=== PATIENT | male | born 1955 | race Caucasian/White ===

== ENCOUNTER 2017-11-28 03:43 | Emergency (ER) | payer MEDICARE, SELFPAY ==
[2017-11-28 03:45] VITALS: BP 165/105; PULSE 95; RESP 94; TEMP 36.4; O2SAT 20; BMI 32.1
--- NOTE | 2017-11-28 04:00 | EKG12_ITS ---
Test Reason : Blood Pressure : / mmHG Vent. Rate : 098 BPM Atrial Rate : 098 BPM P-R Int : 144 ms QRS Dur : 090 ms QT Int : 356 ms P-R-T Axes : 060 -08 048 degrees QTc Int : 454 ms Normal sinus rhythm Low voltage QRS (limb leads) Confirmed by JAH ORTIZ, GIAN ([id number]), editor in chief newspaper HANNAH LEBLANC ([id number]) on 11/30/2017 10:36:15 AM Referred By: DR TRAVIS Confirmed By:GIAN TYSON MD
[2017-11-28 04:18] LABS: Vista UDS pH Range 6
[2017-11-28 04:18] LABS: Absolute Lymphocyte Count 1.64 X10^3/ul (0.83-4.51); Basophil# 0.02 X10^3/uL; Basophil% 0.4 % (0-1); Eosinophil# 0.12 X10^3/uL; Eosinophils% 2.3 % (0-5); Hematocrit 43.3 % (40-54); Hemoglobin 15.4 g/dl (13.0-16.5); Lymphocyte # 1.64 X10^3/ul (4.0); Lymphocyte % 31.8 % (19-41); Mean Corp Hgb Conc 35.6 g/gl (32-36); Mean Corpuscular Hgb 30.6 pg (27.0-32.0); Mean Corpuscular Volume 85.9 fL (80-94); Monocyte# 0.36 X10^3/uL; Neutrophil % 58.3 % (47-70); Platelet Count 225 K/mm3 (150-450); RBC Distribution Width CV 13.4 % (11.6-14.6); RBC Distribution Width SD 41.1 fl (35.1-43.9); Red Blood Count 5.04 M/mm3 (4.6-6.2); White Blood Count 5.2 K/mm3 (4.4-11.0)
[2017-11-28 04:20] LABS: POSITIVE COUNT NO; POSITIVE DIFFERENTIAL NO; POSITIVE MORPHOLOGY NO
[2017-11-28 04:42] LABS: AST(SGOT) 36 U/L (15-37); Alanine Aminotransfer ALT/SGPT 25 U/L (16-61); Albumin, Serum 3.9 g/dL (3.2-5.0); Alkaline Phosphatase 92 U/L (45-117); Anion Gap 10 (5-15); BUN 16 mg/dL (7-18); BUN/Creat Ratio 19.2 RATIO (10-20); Bilirubin, Direct 0.11 mg/dL (0.00-0.30); Calcium,Total 8.6 mg/dL (8.5-10.1); Chloride 104 mmol/L (98-107); Creatinine, Serum 0.83 mg/dL (0.70-1.30); EST Glomerular Filtration Rate 99 mL/min (>60); Est Glom Filt Rate - Afr Amer 120 mL/min (>60); Globulin 3.3 g/dL (2.2-4.2); Glucose 122 mg/dL (74-106); Potassium 4.1 mmol/L (3.5-5.1); Protein, Total 7.2 g/dL (6.4-8.2); Sodium Level 139 mmol/L (136-145)
[2017-11-28 05:03] VITALS: RESP 18
[2017-11-28 05:03] LABS: Amphetamine Urine VISTA NEGATIVE (<1000 ng/mL); Barbiturate Urine VISTA NEGATIVE (< 200 ng/mL); Benzodiazepine Urine VISTA NEGATIVE (< 200 ng/mL); Cocaine Urine VISTA NEGATIVE (< 300 ng/mL); Ecstacy Urine VISTA NEGATIVE (< 500 ng/mL); Methadone Urine VISTA NEGATIVE (< 300 ng/mL); PCP Urine VISTA NEGATIVE (< 25 ng/mL); THC Urine VISTA NEGATIVE (< 50 ng/mL)
--- NOTE | 2017-11-28 05:11 | ED.RN ---
TRIAGE, HEALTH HISTORY, MEDLIST, ASSESSMENT, DONE BY THIS NURSE BUT ACCIDENTLY CHARTED UNDER GUILLE MURDOCK RN.
[2017-11-28] MEDS: oxyCODONE 5 MG Tablet PO ×2 (05:20→08:48)
[2017-11-28 05:23] VITALS: BP 107/61; PULSE 100; RESP 18; O2SAT 93
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
[2017-11-28 06:02] VITALS: RESP 18
[2017-11-28] MEDS: LORazepam 1 MG Tablet 2 MG PO (08:48)
--- NOTE | 2017-11-28 08:51 | ED.RN ---
BREAKFAST TRAY DELIVERED TO BEDSIDE. PT DENIES FURTHER NEEDS AT THIS TIME. CALL LIGHT IN REACH.
[2017-11-28 09:26] VITALS: BP 124/78; PULSE 92; RESP 14; O2SAT 95
== END 2017-11-28 09:39 ==
PROVIDERS: Emergency Provider Emergency Medicine; Family Provider Family Medicine; PCP Family Medicine
DX: R45.851 Suicidal ideations (principal); R45.850 Homicidal ideations; F29 Unspecified psychosis not due to a substance or known physiological condition; F43.10 Post-traumatic stress disorder, unspecified; F20.9 Schizophrenia, unspecified; Z72.0 Tobacco use
CPT/HCPCS: 80048; 80076; 80307; 80320; 85025; 93005; 99282; G0480

== ENCOUNTER 2018-01-25 10:34 | Emergency (ER) | payer MEDICARE, SELFPAY ==
[2018-01-25] VITALS (7 sets, daily range): BP systolic 116–159; BP diastolic 85–114; PULSE 75–108; RESP 16–22; TEMP 36.4; O2SAT 93–98; BMI 32.3
--- NOTE | 2018-01-25 10:55 | EKG12_ITS ---
Test Reason : SUICIDAL Blood Pressure : / mmHG Vent. Rate : 086 BPM Atrial Rate : 086 BPM P-R Int : 146 ms QRS Dur : 086 ms QT Int : 370 ms P-R-T Axes : 053 -13 047 degrees QTc Int : 442 ms Normal sinus rhythm Normal ECG Confirmed by JAH ORTIZ, GIAN ([id number]), editor newspaper HANNAH LEBLANC ([id number]) on 02/05/2018 3:49:03 PM Referred By: LIZA Confirmed By:GIAN TYSON MD
--- NOTE | 2018-01-25 10:57 | ED.VISSUMM ---
- ER Visit Summary Date of Service: 01/25/18 Chief Complaint: Suicidal ideation History of Present Illness: The patient is a 62 M with a history of depression who presents with suicidal ideation. Plan to shoot himself. No guns in the home. His brother took them. No attempt. Patient also reports trouble urinating. He reports frequency, weak stream, and trouble starting. Trouble emptying. No history of prostate issues. No pain in his rectum her backside. No blood. No fevers. No discharge. Physical Examination: Tachycardic at 108. Hypertensive 152/114. Otherwise afebrile vital signs unremarkable. Flat affect and depressed mood. Alert and oriented. Heart regular. Lungs clear. Abdomen soft. Back shows mild CVA tenderness bilaterally. Skin appears normal. Test Results: EKG, labs, urinalysis, tox screen, and alcohol pending. Post void residual pending. Emergency Department Course and Treatment: Patient had suicide precautions. He received 0.5 mg of Ativan by mouth. Will clear him for psychiatric care. Will also evaluate for his urinary complaints. Workup is largely unremarkable. CBC normal. Potassium 3.4. Glucose 112 and BUN 23. Liver panel normal. Urinalysis unremarkable. 0-5 white cells and 0-5 epi cells. No bacteria. Nitrites negative. Tox screen positive for opiates. Alcohol pending. Patient's postvoid residual was 11 cc. He is not retaining urine. Patient is tentatively accepted at [place] for geropsych. Requested a head CT and chest x-ray. Chest x-ray unremarkable. Head CT pending. Patient is stable. We are waiting twice by the crisis counselor. He is clear for for transfer for psychiatric care from a medical standpoint. Treatment Plan: Above Disposition: Transfer pending further evaluation by crisis counselor. Impression: 1. Suicidal ideation 2. Urinary frequency This note was generated with [employer] dictation software. It may contain incorrect words, spelling, and punctuation that were not noted in review of the chart prior to signing ED Disposition - Plan for ED Patient: Chief Complaint: Suicidal Referrals: Josue St MD [Primary Care Provider] -
[2018-01-25] MEDS: LORazepam 0.5 MG Tablet PO ×2 (11:07→17:32)
[2018-01-25 11:13] LABS: Bacteria 0 SEEN /hpf (None Seen); Red Blood Cells-Urine 0 SEEN /hpf (0-5)
[2018-01-25 11:17] LABS: Absolute Lymphocyte Count 2.52 X10^3/ul (0.83-4.51); Absolute Neutrophil Count 4.6 X10^3/uL (2.0-7.7); Basophil# 0.03 X10^3/uL; Basophil% 0.4 % (0-1); Eosinophil# 0.15 X10^3/uL; Eosinophils% 1.8 % (0-5); Hematocrit 45.5 % (40-54); Hemoglobin 16.2 g/dl (13.0-16.5); Lymphocyte # 2.52 X10^3/ul (4.0); Mean Corp Hgb Conc 35.6 g/gl (32-36); Mean Corpuscular Hgb 31.1 pg (27.0-32.0); Mean Corpuscular Volume 87.3 fL (80-94); Mean Platelet Vol. 9.8 fl (6.2-12.0); Monocyte# 0.81 X10^3/uL; Neutrophil # 4.59 X10^3/uL (2.7-7.7); Neutrophil % 56.6 % (47-70); POSITIVE COUNT NO; POSITIVE DIFFERENTIAL NO; POSITIVE MORPHOLOGY NO; Platelet Count 258 K/mm3 (150-450); RBC Distribution Width CV 13.1 % (11.6-14.6); RBC Distribution Width SD 41.9 fl (35.1-43.9); Red Blood Count 5.21 M/mm3 (4.6-6.2); White Blood Count 8.1 K/mm3 (4.4-11.0)
[2018-01-25 11:26] LABS: Color, Urine Yellow (Yellow); Glucose, Dipstick Normal (Normal); Ketone-Dipstick Negative (Negative); Leukocyte Esterase-Dipstick 25 /ul (Negative); Nitrite-Dipstick Negative (Negative); Occult Blood-Urine Negative /ul (Negative); Protein-Dipstick 15 mg/dl (Negative); Specific Gravity, Urine 1.015 (1.002-1.030); Urine Bilirubin Dipstick Negative (Negative); Urine Clarity Clear (Clear); Urine Urobilinogen Normal (Normal)
[2018-01-25 11:30] LABS: Mucous, Urine 1+ /hpf (<or=2+); Squamous Epithelial Cells - UA 0-5 SEEN /hpf (0-5); White Blood Cells 0-5 SEEN /hpf (0-5)
[2018-01-25 11:41] LABS: ALB/GLOB Ratio 1.1 RATIO (0.9-2.4); AST(SGOT) 37 U/L (15-37); Alanine Aminotransfer ALT/SGPT 22 U/L (16-61); Albumin, Serum 3.9 g/dL (3.2-5.0); Alkaline Phosphatase 92 U/L (45-117); Anion Gap 8 (5-15); BUN 23 mg/dL (7-18); BUN/Creat Ratio 21.3 RATIO (10-20); Calcium,Total 8.9 mg/dL (8.5-10.1); Chloride 107 mmol/L (98-107); Creatinine, Serum 1.08 mg/dL (0.70-1.30); EST Glomerular Filtration Rate 73 mL/min (>60); Est Glom Filt Rate - Afr Amer 89 mL/min (>60); Estimated Creatinine Clearance 70.01 ml/min; Globulin 3.4 g/dL (2.2-4.2); Glucose 112 mg/dL (74-106); Potassium 3.4 mmol/L (3.5-5.1); Protein, Total 7.3 g/dL (6.4-8.2); Sodium Level 143 mmol/L (136-145)
[2018-01-25 11:48] LABS: Amphetamine Urine VISTA NEGATIVE (<1000 ng/mL); Barbiturate Urine VISTA NEGATIVE (< 200 ng/mL); Benzodiazepine Urine VISTA NEGATIVE (< 200 ng/mL); Cocaine Urine VISTA NEGATIVE (< 300 ng/mL); Ecstacy Urine VISTA NEGATIVE (< 500 ng/mL); Methadone Urine VISTA NEGATIVE (< 300 ng/mL); PCP Urine VISTA NEGATIVE (< 25 ng/mL); THC Urine VISTA NEGATIVE (< 50 ng/mL); Vista UDS pH Range 6
[2018-01-25] MEDS: Acetaminophen 500 MG Tablet 1000 MG PO (15:40)
--- NOTE | 2018-01-25 15:56 | RAD_ITS ---
STUDY: X-RAY CHEST REASON FOR EXAM: Male, 62 years old. having thoughts of committing suicide for 3 days TECHNIQUE: Single AP portable view of the chest. COMPARISON: August 23, 2015 FINDINGS: The lungs are clear and expanded. There is no demonstrated pleural abnormality. Normal size heart. Normal mediastinum and erendira. Normal visualized pulmonary arteries. Normal visualized aortic arch and descending thoracic aorta. Normal visualized thoracic spine. Normal visualized ribs, clavicles, and shoulders. There is no demonstrated abnormality of the visualized soft tissue structures of the upper abdomen. RAD/Chest 1 View (Portable) IMPRESSION: Normal x-ray examination of the chest. Electronically Signed: Paco English MD at 16:22 EDT , Service support ,
--- NOTE | 2018-01-25 15:56 | CT_ITS ---
STUDY: CT BRAIN WITHOUT CONTRAST REASON FOR EXAM: Male, 62 years old. PSYCH CLEARANCE, SUICIDAL IDEATION REPEAT SCAN D/T MOTION RADIATION DOSAGE (If Supplied By Facility): CTDIvol = ( 60.81 ) mGy, DLP = ( 2134.16 ) mGycm TECHNIQUE: Transaxial CT imaging of the brain was performed without administration of intravenous contrast material. COMPARISON: January 27, 2016 FINDINGS: Normal soft tissue structures. Normal calvarium. There are calcifications around the carotid artery. These are noted in the cavernous carotid arteries. There is mild cerebral atrophy with widening of the extra-axial spaces and ventricular dilatation. There are areas of decreased attenuation within the white matter tracts of the supratentorial brain, consistent with microvascular disease changes. Normal basal ganglia and thalami. Normal brainstem. There is mild cerebellar atrophy. There is no intracranial hemorrhage. There are no findings of an acute ischemic infarction. Normal visualized paranasal sinuses. CT/Brain/Head without Contrast IMPRESSION: Chronic involutional changes of the brain. There are no acute findings. Electronically Signed: Paco English MD at 17:47 EDT , Service support ,
[2018-01-25] MEDS: oxyCODONE 5 MG Tablet PO (18:12)
== END 2018-01-25 20:36 | disposition home or self-care (01) ==
LOC: ED 11:27
PROVIDERS: Emergency Provider Emergency Medicine; Family Provider Family Medicine; PCP Family Medicine
DX: R45.851 Suicidal ideations (principal); R35.0 Frequency of micturition; F32.9 Major depressive disorder, single episode, unspecified; J44.9 Chronic obstructive pulmonary disease, unspecified; H54.8 Legal blindness, as defined in USA; Z79.899 Other long term (current) drug therapy; Z72.0 Tobacco use
CPT/HCPCS: 36415; 70450; 71045; 80053; 80307; 80320; 81001; 85025; 93005; 99285; G0480

== ENCOUNTER 2018-02-22 07:29 | Emergency (ER) | payer MEDICARE, SELFPAY ==
[2018-02-22 07:29] VITALS: BP 142/107; PULSE 95; RESP 26; TEMP 36.1; O2SAT 100; BMI 31.2
--- NOTE | 2018-02-22 07:45 | EKG12_ITS ---
Test Reason : [facility] [place] Pressure : / mmHG Vent. Rate : 089 BPM Atrial Rate : 089 BPM P-R Int : 152 ms QRS Dur : 094 ms QT Int : 384 ms P-R-T Axes : 058 002 040 degrees QTc Int : 467 ms Normal sinus rhythm Normal ECG Confirmed by DARLENE ORTIZ, AKIKO ([id number]), associate entertainment editor HANNAH LEBLANC ([id number]) on 02/26/2018 1:41:20 PM Referred By: ARMANDO Confirmed By:AKIKO COLON MD
--- NOTE | 2018-02-22 07:52 | ED.VISSUMM ---
- ER Visit Summary Date of Service: 02/22/18 Chief Complaint: Suicidal ideation with plan and chest pain History of Present Illness: The patient is a 62 M who has had multiple ER visits this year with transfer to psychiatric facility for depression with suicidal ideation. He states he has had this problem for some time. He states over the past 3 days his thoughts of harming himself have increased. He states he would cut his wrists and bleed slowly. He then proceeded to inform me that he is done this before and showed me both forearms. He lives alone. He is a smoker. He has not had any alcoholic beverage in 2010. He denies drug use. He did contact the on-call social media editor for the counseling center. He states he was instructed to come to the emergency department. He arrived by taxi. He denies fever, chills night sweats. He denies any ocular, visual auditory symptoms. He denies nausea, vomiting or diarrhea. He denies dysuria, frequency, urgency or hematuria. He does complain of paresthesia upper and lower extremity. He denies any problem with walking, strength or sensation. There is no history of trauma. He denies headache, or focal weakness. He does complain of vague chest pain with shortness of breath. He also admits that he is anxious and his chest is pounding. He requested something for anxiety. There is a history of bladder cancer, COPD, acute kidney injury and glaucoma. Physical Examination: Vital signs are remarkable and elevated pressure 142/70 respiration 26. Pulse ox is 100% on room air. Patient does appear anxious. He is not well groomed. He is unshaven. Head is atraumatic normocephalic. Pupils are equal round reactive. Extraocular muscles are intact. TMs are pearly white with landmarks noted. Nares patent with no drainage. Posterior pharynx without erythema or exudate. Uvula is midline. There is no dysphonia or dysphasia. Trachea is midline. There is no stridor with auscultation of the neck. She Chvostek sign was noted bilaterally. Heart is regular without murmur, gallop or rub. S1 and S2 are normal. Lungs are clear to auscultation with good movement of air bilaterally. Abdomen is soft nontender. Bowel sounds are present normal. There is no asymmetry, swelling, discoloration, leg vein distention, palpable cords or tenderness along the distribution of the deep venous system. Patient is alert and oriented ?3. Motor is 5 over 5. Sensory is intact. DTRs are symmetric with no clonus or Babinski sign. Cranial 2 through 12 are intact. Cerebellar testing is normal. Patient admits to increased depression and has a specific plan how to harm himself. Test Results: EKG normal with a rate of 89. Troponin less than 0.015. Potassium is 3.0. CBC is unremarkable. Emergency Department Course and Treatment: ED mental health workup was undertaken to evaluate patient for psychiatric admission. Because he complains of chest pain shortness of breath and is a smoker and EKG and troponin were obtained. If these are negative one can rule out cardiac ischemia since she reports pain for 3 days. Review of old records indicates he had a CAT scan of his head January of this year. Since his neuro exam is nonfocal there is no indication for a repeat CT. Since patient's potassium is 3.0 he received 50 mg of potassium chloride orally. With a normal EKG and troponin with 72 hours of pain cardiac etiology of his chest pain is ruled out. It is my professional medical pain is related to his anxiety. Treatment Plan: Once patient's workup is back will contact counseling center for evaluation and transfer to psychiatric facility. Disposition: Transfer to general psych facility. I was told by the social media editor that he has mild psychotic features. Impression: 1. Depression with suicidal ideation 2. Anxiety 3. Mild psychosis This note was generated with [employer] dictation software. It may contain incorrect words, spelling, and punctuation that were not noted in review of the chart prior to signing ED Disposition - Plan for ED Patient: Chief Complaint: Suicidal Referrals: Josue St MD [Primary Care Provider] -
--- NOTE | 2018-02-22 07:58 | ED.DCSUM_ITS ---
- ER Visit Summary Date of Service: 02/22/18 Chief Complaint: Suicidal ideation with plan and chest pain History of Present Illness: The patient is a 62 M who has had multiple ER visits this year with transfer to psychiatric facility for depression with suicidal ideation. He states he has had this problem for some time. He states over the past 3 days his thoughts of harming himself have increased. He states he would cut his wrists and bleed slowly. He then proceeded to inform me that he is done this before and showed me both forearms. He lives alone. He is a smoker. He has not had any alcoholic beverage in 2010. He denies drug use. He did contact the on-call social media marketing manager for the counseling center. He states he was instructed to come to the emergency department. He arrived by taxi. He denies fever, chills night sweats. He denies any ocular, visual auditory symptoms. He denies nausea, vomiting or diarrhea. He denies dysuria, frequency , urgency or hematuria. He does complain of paresthesia upper and lower extremity. He denies any problem with walking, strength or sensation. There is no history of trauma. He denies headache, or focal weakness. He does complain of vague chest pain with shortness of breath. He also admits that he is anxious and his chest is pounding. He requested something for anxiety. There is a history of bladder cancer, COPD, acute kidney injury and glaucoma. Physical Examination: Vital signs are remarkable and elevated pressure 142/70 respiration 26. Pulse ox is 100% on room air. Patient does appear anxious. He is not well groomed. He is unshaven. Head is atraumatic normocephalic. Pupils are equal round reactive. Extraocular muscles are intact. TMs are pearly white with landmarks noted. Nares patent with no drainage. Posterior pharynx without erythema or exudate. Uvula is midline. There is no dysphonia or dysphasia. Trachea is midline. There is no stridor with auscultation of the neck. She Chvostek sign was noted bilaterally. Heart is regular without murmur, gallop or rub. S1 and S2 are normal. Lungs are clear to auscultation with good movement of air bilaterally. Abdomen is soft nontender. Bowel sounds are present normal. There is no asymmetry, swelling, discoloration, leg vein distention, palpable cords or tenderness along the distribution of the deep venous system. Patient is alert and oriented ?3. Motor is 5 over 5. Sensory is intact. DTRs are symmetric with no clonus or Babinski sign. Cranial 2 through 12 are intact. Cerebellar testing is normal. Patient admits to increased depression and has a specific plan how to harm himself. Test Results: EKG normal with a rate of 89. Troponin less than 0.015. Potassium is 3.0. CBC is unremarkable. Emergency Department Course and Treatment: ED mental health workup was undertaken to evaluate patient for psychiatric admission. Because he complains of chest pain shortness of breath and is a smoker and EKG and troponin were obtained. If these are negative one can rule out cardiac ischemia since she reports pain for 3 days. Review of old records indicates he had a CAT scan of his head January of this year. Since his neuro exam is nonfocal there is no indication for a repeat CT. Since patient's potassium is 3.0 he received 50 mg of potassium chloride orally. With a normal EKG and troponin with 72 hours of pain cardiac etiology of his chest pain is ruled out. It is my professional medical pain is related to his anxiety. Treatment Plan: Once patient's workup is back will contact counseling center for evaluation and transfer to psychiatric facility. Disposition: Transfer to general psych facility. I was told by the social media marketing manager that he has mild psychotic features. Impression: 1. Depression with suicidal ideation 2. Anxiety 3. Mild psychosis This note was generated with [employer] dictation software. It may contain incorrect words, spelling, and punctuation that were not noted in review of the chart prior to signing ED Disposition - Plan for ED Patient: Chief Complaint: Suicidal Referrals: Josue St MD [Primary Care Provider] -
[2018-02-22 08:08] VITALS: BP 149/86
[2018-02-22] MEDS: LORazepam 1 MG Tablet PO ×2 (08:11→09:19)
[2018-02-22 08:25] LABS: Absolute Lymphocyte Count 2.32 X10^3/ul (0.83-4.51); Absolute Neutrophil Count 6.2 X10^3/uL (2.0-7.7); Basophil# 0.01 X10^3/uL; Basophil% 0.1 % (0-1); Eosinophil# 0.14 X10^3/uL; Eosinophils% 1.5 % (0-5); Hemoglobin 15.3 g/dl (13.0-16.5); Lymphocyte # 2.32 X10^3/ul (4.0); Lymphocyte % 24.4 % (19-41); Mean Corp Hgb Conc 34.8 g/gl (32-36); Mean Corpuscular Hgb 30.3 pg (27.0-32.0); Mean Corpuscular Volume 87.1 fL (80-94); Mean Platelet Vol. 9.9 fl (6.2-12.0); Monocyte# 0.79 X10^3/uL; Monocyte% 8.3 % (0-10); Neutrophil # 6.22 X10^3/uL (2.7-7.7); Neutrophil % 65.6 % (47-70); Platelet Count 210 K/mm3 (150-450); RBC Distribution Width SD 41.3 fl (35.1-43.9); Red Blood Count 5.05 M/mm3 (4.6-6.2); White Blood Count 9.5 K/mm3 (4.4-11.0)
[2018-02-22 08:27] LABS: POSITIVE COUNT NO; POSITIVE DIFFERENTIAL NO; POSITIVE MORPHOLOGY NO
[2018-02-22 08:28] LABS: BUN 16 mg/dL (7-18); EST Glomerular Filtration Rate 80 mL/min (>60); Estimated Creatinine Clearance 75.61 ml/min; Glucose 120 mg/dL (74-106)
[2018-02-22 08:29] LABS: Anion Gap 9 (5-15); Chloride 110 mmol/L (98-107); Est Glom Filt Rate - Afr Amer 97 mL/min (>60); Sodium Level 143 mmol/L (136-145)
[2018-02-22 08:33] LABS: Alcohol, Blood (Medical)-Serum < 3.0 mg/dL
--- NOTE | 2018-02-22 08:45 | ED.RN ---
DR ROBERTS NOTIFIED PT C/O PAIN. REQUESTING PERCOCET
[2018-02-22] MEDS: Acetaminophen 325 MG Tablet 650 MG PO (09:18)
--- NOTE | 2018-02-22 09:18 | NURSING ---
ALISSA, CRISIS, AWARE PATIENT IS HERE
[2018-02-22 09:25] VITALS: BP 156/90; PULSE 74; RESP 22; O2SAT 100
--- NOTE | 2018-02-22 10:14 | NURSING ---
ALISSA, CRISIS, IN WITH PATIENT
[2018-02-22 11:18] VITALS: BP 142/79; PULSE 81; RESP 22; O2SAT 97
[2018-02-22 11:22] LABS: Amphetamine Urine VISTA NEGATIVE (<1000 ng/mL); Barbiturate Urine VISTA NEGATIVE (< 200 ng/mL); Benzodiazepine Urine VISTA NEGATIVE (< 200 ng/mL); Cocaine Urine VISTA NEGATIVE (< 300 ng/mL); Ecstacy Urine VISTA NEGATIVE (< 500 ng/mL); Methadone Urine VISTA NEGATIVE (< 300 ng/mL); PCP Urine VISTA NEGATIVE (< 25 ng/mL); THC Urine VISTA NEGATIVE (< 50 ng/mL); Vista UDS pH Range 5
[2018-02-22 12:37] VITALS: BP 142/79; PULSE 81; RESP 18; O2SAT 98
--- NOTE | 2018-02-22 12:38 | NURSING ---
CALLING [facility] FOR TRANSPORT.
[2018-02-22 12:40] VITALS: BP 142/89; PULSE 76; RESP 22; O2SAT 98
--- NOTE | 2018-02-22 12:51 | ED.RN ---
BLUE PAJAMA PANTS, BLUE SWEATSHIRT, INDIANS HAT, MEJIA TSHIRT, WHITE SOCKS WITH BROWN STRIPES
== END 2018-02-22 13:01 ==
LOC: ED 08:18
PROVIDERS: Emergency Provider Emergency Medicine; Family Provider Family Medicine; PCP Family Medicine
DX: F32.9 Major depressive disorder, single episode, unspecified (principal); R45.851 Suicidal ideations; F41.9 Anxiety disorder, unspecified; F23 Brief psychotic disorder; R07.9 Chest pain, unspecified; J44.9 Chronic obstructive pulmonary disease, unspecified; N17.9 Acute kidney failure, unspecified; F17.200 Nicotine dependence, unspecified, uncomplicated; Z85.51 Personal history of malignant neoplasm of bladder; Z79.899 Other long term (current) drug therapy
CPT/HCPCS: 80048; 80307; 80320; 84484; 85025; 93005; 99284; G0480

== ENCOUNTER 2018-04-01 08:48 | Emergency (ER) | payer MEDICARE, SELFPAY ==
[2018-04-01] VITALS (9 sets, daily range): BP systolic 134–150; BP diastolic 88–101; PULSE 78–100; RESP 18–20; TEMP 36.1; O2SAT 94–97; BMI 32.1
--- NOTE | 2018-04-01 08:58 | EKG12_ITS ---
Test Reason : [facility] Blood Pressure : / mmHG Vent. Rate : 080 BPM Atrial Rate : 080 BPM P-R Int : 130 ms QRS Dur : 100 ms QT Int : 402 ms P-R-T Axes : 038 -18 046 degrees QTc Int : 463 ms Normal sinus rhythm Normal ECG Confirmed by AKIKO COLON MD ([id number]), newspaper copy editor HANNAH LEBLANC ([id number]) on 04/03/2018 3:57:54 PM Referred By: KATELYNN Confirmed By:AKIKO COLON MD
--- NOTE | 2018-04-01 09:04 | ED.DCSUM_ITS ---
- ER Visit Summary Date of Service: 04/01/18 Chief Complaint: Suicidal thoughts History of Present Illness: The patient is a 62 M Zentz to the emergency department with suicidal thoughts. Patient has a history of anxiety, depression , and PTSD. He does follow with the counseling center. He is on Risperdal. He states that over the past 2-3 days, he has had rather significant increasing depression. He states that today, he is begun to have thoughts of wanting to kill himself. He states that he was going to take a obstetrics teacher knife and cut his wrists. He has tried to commit suicide before in the past. He has a history of multiple psychiatric admissions. Patient does have a prior history of alcohol abuse, but has been sober for 7 years. He denies any drug use. Physical Examination: Vital signs reviewed General: Well-nourished, well-developed Head: Normocephalic, atraumatic Eyes: Pupils equal and reactive, extraocular muscles intact Neck, supple, no lymphadenopathy Heart: Regular rate and rhythm Respiratory: No distress, clear bilaterally Abdomen: Soft, nontender, nondistended, no peritoneal signs Back: Nontender Extremities: Nontender, no edema, no cords Skin: Normal color no rash Neuro: Alert and oriented, no focal or lateralizing deficits Test Results: [] Emergency Department Course and Treatment: Patient presents with increasing suicidal thoughts. He does have specific plan. The patient was given oral Ativan. Tox is positive for opiates and the patient is on these chronically. He has been compliant. Patient was evaluated by crisis. Plan will be to transfer the patient to psychiatric facility for admission. Treatment Plan: [] Disposition: Her Impression:. Suicidal ideation with plan This note was generated with [facility] dictation software. It may contain incorrect words, spelling, and punctuation that were not noted in review of the chart prior to signing ED Disposition - Plan for ED Patient: Chief Complaint: Suicidal Referrals: Josue St MD [Primary Care Provider] -
[2018-04-01 09:21] LABS: Absolute Lymphocyte Count 1.28 X10^3/ul (0.83-4.51); Absolute Neutrophil Count 5.1 X10^3/uL (2.0-7.7); Basophil# 0.01 X10^3/uL; Basophil% 0.1 % (0-1); Eosinophil# 0.08 X10^3/uL; Eosinophils% 1.1 % (0-5); Hematocrit 43.4 % (40-54); Hemoglobin 14.9 g/dl (13.0-16.5); Lymphocyte # 1.28 X10^3/ul (4.0); Lymphocyte % 18.4 % (19-41); Mean Corp Hgb Conc 34.3 g/gl (32-36); Mean Corpuscular Hgb 29.9 pg (27.0-32.0); Mean Corpuscular Volume 87.1 fL (80-94); Mean Platelet Vol. 9.8 fl (6.2-12.0); Monocyte# 0.46 X10^3/uL; Monocyte% 6.6 % (0-10); Neutrophil # 5.12 X10^3/uL (2.7-7.7); Neutrophil % 73.5 % (47-70); POSITIVE COUNT NO; POSITIVE DIFFERENTIAL NO; POSITIVE MORPHOLOGY NO; Platelet Count 174 K/mm3 (150-450); RBC Distribution Width CV 12.9 % (11.6-14.6); Red Blood Count 4.98 M/mm3 (4.6-6.2)
[2018-04-01 09:33] LABS: Anion Gap 6 (5-15); BUN 19 mg/dL (7-18); BUN/Creat Ratio 22.7 RATIO (10-20); Calcium,Total 8.6 mg/dL (8.5-10.1); Chloride 106 mmol/L (98-107); Creatinine, Serum 0.84 mg/dL (0.70-1.30); EST Glomerular Filtration Rate 98 mL/min (>60); Est Glom Filt Rate - Afr Amer 119 mL/min (>60); Estimated Creatinine Clearance 90.01 ml/min; Glucose 112 mg/dL (74-106); Potassium 3.6 mmol/L (3.5-5.1); Sodium Level 139 mmol/L (136-145)
[2018-04-01] MEDS: LORazepam 1 MG Tablet PO ×2 (09:53→15:11)
[2018-04-01 09:55] LABS: Amphetamine Urine VISTA NEGATIVE (<1000 ng/mL); Barbiturate Urine VISTA NEGATIVE (< 200 ng/mL); Benzodiazepine Urine VISTA NEGATIVE (< 200 ng/mL); Cocaine Urine VISTA NEGATIVE (< 300 ng/mL); Ecstacy Urine VISTA NEGATIVE (< 500 ng/mL); Methadone Urine VISTA NEGATIVE (< 300 ng/mL); PCP Urine VISTA NEGATIVE (< 25 ng/mL); THC Urine VISTA NEGATIVE (< 50 ng/mL); Vista UDS pH Range 6
[2018-04-01 10:10] LABS: Alcohol, Blood (Medical)-Serum < 3.0 mg/dL
[2018-04-01] MEDS: oxyCODONE 5 MG Tablet PO ×2 (10:16→15:11)
--- NOTE | 2018-04-01 19:03 | NURSING ---
REPORT GIVEN TO UGO APODACATA
--- NOTE | 2018-04-01 20:12 | NURSING ---
SHAHZAD PICKED UP THE PT AND GATHERED THE BELONGINGS UP. NO OTHER QUESTIONS AT THE TIME.
== END 2018-04-01 20:11 ==
LOC: ED 09:25
PROVIDERS: Emergency Provider Emergency Medicine; Family Provider Family Medicine; PCP Family Medicine
DX: R45.851 Suicidal ideations (principal); F32.9 Major depressive disorder, single episode, unspecified; F41.9 Anxiety disorder, unspecified; F43.10 Post-traumatic stress disorder, unspecified; Z79.899 Other long term (current) drug therapy; Z87.891 Personal history of nicotine dependence
CPT/HCPCS: 80048; 80307; 80320; 85025; 93005; 99284; G0480

== ENCOUNTER 2018-04-28 06:04 | Emergency (ER) | payer MEDICARE, SELFPAY ==
[2018-04-28 06:05] VITALS: BP 167/101; PULSE 95; RESP 20; TEMP 36.4; O2SAT 95; BMI 32.4
--- NOTE | 2018-04-28 06:10 | ED.RN ---
PT STATE HE STOPPED TAKING HIS MEDICATION EXCEPT ATIVAN AND PERCOCET 10DAYS AGO.
[2018-04-28 06:24] LABS: Absolute Lymphocyte Count 2.85 X10^3/ul (0.83-4.51); Absolute Neutrophil Count 5.7 X10^3/uL (2.0-7.7); Basophil# 0.02 X10^3/uL; Basophil% 0.2 % (0-1); Eosinophil# 0.19 X10^3/uL; Hematocrit 44.7 % (40-54); Hemoglobin 15.5 g/dl (13.0-16.5); Lymphocyte # 2.85 X10^3/ul (4.0); Lymphocyte % 30.1 % (19-41); Mean Corp Hgb Conc 34.7 g/gl (32-36); Mean Corpuscular Hgb 30.2 pg (27.0-32.0); Mean Platelet Vol. 9.7 fl (6.2-12.0); Monocyte# 0.74 X10^3/uL; Monocyte% 7.8 % (0-10); Neutrophil # 5.67 X10^3/uL (2.7-7.7); Neutrophil % 59.8 % (47-70); Platelet Count 228 K/mm3 (150-450); RBC Distribution Width CV 13.1 % (11.6-14.6); RBC Distribution Width SD 42.1 fl (35.1-43.9); Red Blood Count 5.14 M/mm3 (4.6-6.2); White Blood Count 9.5 K/mm3 (4.4-11.0)
--- NOTE | 2018-04-28 06:34 | EKG12_ITS ---
Test Reason : MEDICAL CLEARANCE Blood Pressure : / mmHG Vent. Rate : 073 BPM Atrial Rate : 073 BPM P-R Int : 146 ms QRS Dur : 094 ms QT Int : 402 ms P-R-T Axes : 059 011 061 degrees QTc Int : 442 ms Normal sinus rhythm Normal ECG Confirmed by DARLENE ORTIZ, AKIKO ([id number]), supervising editor trailer HANNAH LEBLANC ([id number]) on 04/30/2018 1:37:42 PM Referred By: CATA Confirmed By:AKIKO COLON MD
[2018-04-28 06:35] LABS: Anion Gap 10 (5-15); BUN 17 mg/dL (7-18); BUN/Creat Ratio 19.8 RATIO (10-20); Chloride 103 mmol/L (98-107); Creatinine, Serum 0.86 mg/dL (0.70-1.30); EST Glomerular Filtration Rate 95 mL/min (>60); Est Glom Filt Rate - Afr Amer 115 mL/min (>60); Estimated Creatinine Clearance 87.92 ml/min; Glucose 119 mg/dL (74-106); Potassium 3.5 mmol/L (3.5-5.1); Sodium Level 139 mmol/L (136-145)
[2018-04-28 06:36] LABS: Alcohol, Blood (Medical)-Serum < 3.0 mg/dL
[2018-04-28 06:37] LABS: POSITIVE COUNT NO; POSITIVE DIFFERENTIAL NO; POSITIVE MORPHOLOGY NO
[2018-04-28] MEDS: LORazepam 1 MG Tablet PO ×2 (06:42→13:22)
[2018-04-28 06:54] VITALS: PULSE 82; RESP 16; O2SAT 93
[2018-04-28] MEDS: Ipratropium/Albuterol Sulfate 3 ML AMPUL.NEB INHALATION (06:54)
--- NOTE | 2018-04-28 07:45 | ED.DCSUM_ITS ---
- ER Visit Summary Date of Service: 04/28/18 Chief Complaint: Suicidal ideation History of Present Illness: The patient is a [address] He has a history of depression and anxiety. He reports that he was hospitalized at [facility] last month. States that approximately 8 or 9 days ago he stopped taking his Zoloft and Remeron. He reports over the past 3-4 days he has had suicidal thoughts with a plan to cut his wrists. He also reports he is having auditory hallucinations that are strong suggestions to hurt himself. Physical Examination: Vitals: Stable. Afebrile. General: Well-nourished and well-developed. Head: Normocephalic atraumatic. Neck: Supple, no lymphadenopathy. No JVD. Nontender. Cardiovascular: Regular rate and rhythm. No murmurs. Respiratory: No respiratory distress. Mild wheezing bilaterally with good air movement y. Abdominal: Soft, nontender, nondistended, normal bowel sounds. No guarding, rebound, or peritoneal signs. Back: Nontender. Extremities: Nontender, no edema. Skin: Normal color, no rash. Neurologic: Alert and oriented ?3. Cranial nerves II through XII are intact. Normal strength and sensation. Mental status exam: Patient appears their stated age. Good posture and grooming. Good eye contact. Normal rate, volume, and latency of speech. No homicidal ideation. No visual hallucinations. Flow of thought is logical. Insight and judgment is fair. Test Results: EKG is sinus at 73 with no acute changes. CBC is normal. Chem-7 is more for glucose 119. Tox screen is negative. Patient has not given a urinalysis for a tox screen unit. Emergency Department Course and Treatment: Patient was treated albuterol Atrovent aerosols. Is given Ativan p.o. He is resting comfortably. Treatment Plan: The patient will need to be seen by the counseling center for further evaluation and treatment. Disposition: Pending Impression: 1. Depression. 2. Suicidal ideation. 3. Auditory hallucinations. 4. COPD. This note was generated with [employer] software. It may contain incorrect words, spelling, and punctuation that were not noted in review of the chart prior to signing ED Disposition - Plan for ED Patient: Chief Complaint: Suicidal Referrals: Josue St MD [Primary Care Provider] -
[2018-04-28 07:50] VITALS: BP 118/71; PULSE 76; RESP 18; O2SAT 92
[2018-04-28 09:06] LABS: Amphetamine Urine VISTA NEGATIVE (<1000 ng/mL); Barbiturate Urine VISTA NEGATIVE (< 200 ng/mL); Benzodiazepine Urine VISTA POSITIVE (< 200 ng/mL); Cocaine Urine VISTA NEGATIVE (< 300 ng/mL); Ecstacy Urine VISTA NEGATIVE (< 500 ng/mL); Methadone Urine VISTA NEGATIVE (< 300 ng/mL); PCP Urine VISTA NEGATIVE (< 25 ng/mL); THC Urine VISTA NEGATIVE (< 50 ng/mL); Vista UDS pH Range 6
[2018-04-28] MEDS: Acetaminophen 325 MG Tablet 650 MG PO (11:41)
--- NOTE | 2018-04-28 11:43 | NURSING ---
PT OFFERED FOOD AND REFUSED. PT STATES HE IS HEARING VOICES, BUT DENIES HALLUCINATIONS. PT DENIES BEING SUICIDAL, BUT STATES HE WANTED TO CUT HIS WRISTS PRIOR TO COMING TO ER
[2018-04-28 13:23] VITALS: BP 139/96; PULSE 74; RESP 18; O2SAT 94
== END 2018-04-28 13:28 ==
PROVIDERS: Emergency Provider Emergency Medicine; Family Provider Family Medicine; PCP Family Medicine
DX: F32.9 Major depressive disorder, single episode, unspecified (principal); R45.851 Suicidal ideations; R44.0 Auditory hallucinations; J44.9 Chronic obstructive pulmonary disease, unspecified; F41.9 Anxiety disorder, unspecified; Z85.51 Personal history of malignant neoplasm of bladder; Z79.899 Other long term (current) drug therapy; Z72.0 Tobacco use
CPT/HCPCS: 80048; 80307; 80320; 85025; 93005; 94640; 99285; G0480

== ENCOUNTER 2018-06-24 14:11 | Emergency (ER) | payer MEDICARE, SELFPAY ==
[2018-06-24] VITALS (8 sets, daily range): BP systolic 120–143; BP diastolic 75–101; PULSE 67–110; RESP 18–22; TEMP 36.2; O2SAT 93–98; BMI 31.7
--- NOTE | 2018-06-24 14:24 | EKG12_ITS ---
Test Reason : [facility] Blood Pressure : / mmHG Vent. Rate : 092 BPM Atrial Rate : 092 BPM P-R Int : 146 ms QRS Dur : 096 ms QT Int : 378 ms P-R-T Axes : 060 -19 055 degrees QTc Int : 467 ms Normal sinus rhythm Normal ECG Confirmed by DARLENE OTRIZ, AKIKO ([id number]), editor & co founder HANNAH LEBLANC ([id number]) on 06/28/2018 1:14:36 PM Referred By: THOR Confirmed By:AKIKO COLON MD
--- NOTE | 2018-06-24 14:24 | RAD_ITS ---
STUDY: X-RAY CHEST REASON FOR EXAM: Male, 62 years old. Chest pain. TECHNIQUE: Single AP portable view of the chest. COMPARISON: Comparison is made with prior examination dated January 25, 2018. FINDINGS: EKG electrodes are seen. The lungs are clear and expanded. Scattered calcified granulomas. There is no demonstrated pleural abnormality. Normal size heart. Normal mediastinum and erendira. Normal visualized pulmonary arteries. There is atherosclerotic tortuosity of the aortic arch and descending thoracic aorta. Normal visualized thoracic spine. Normal visualized ribs, clavicles, and shoulders. There is no demonstrated abnormality of the visualized soft tissue structures of the upper abdomen. RAD/Chest 1 View (Portable) IMPRESSION: No acute abnormality is seen. Electronically Signed: Zack Yoder MD at 15:04 EDT Tel [phone], Service support ,
--- NOTE | 2018-06-24 14:34 | ED.VISSUMM ---
- ER Visit Summary Date of Service: 06/24/18 Chief Complaint: Anxiety and chest pain History of Present Illness: The patient is a 62 M history of COPD, bladder cancer, cholesterol, kidney stones and prior psychiatric history. Patient states the last 2 days is a gradual onset of chest pain. He is felt very anxious. And feels that he may harm himself. Also states she has had some nausea, vomiting and diarrhea. Denies any leg pain or swelling. No hemoptysis. No history of prior DVT or PEs. No recent travel or surgery. Patient states 2 months ago he was admitted to the hospital in the facility. Physical Examination: Well-appearing older male. Vital signs he is afebrile. He does not look septic or toxic. He is in no acute distress and is anxious. HEENT exam unremarkable. Neck nontender no lymphadenopathy. Lungs clear to auscultation bilaterally. Heart tachycardic no murmur. Chest wall does have reproducible chest wall pain over his left rib cage. Over his heart. This is consistent with musculoskeletal chest wall pain. No ecchymosis or bruising. No subcu air. No crepitance. Abdomen is soft and nontender. Normal bowel sounds no peritoneal signs. He is moving all 4 extremities. They are neurovascularly intact. Calves are nontender without edema or cords. Neurologically is awake and alert with no focal motor deficits. Test Results: EKG shows sinus rhythm rate and rate of 92 no acute signs of PR or ischemia. Chest x-ray portable one view read both by myself the radiologist shows no acute abnormality. Normal cardiac silhouette and mediastinum. CBC normal. Chemistries unremarkable. Troponin normal. Alcohol level is negative. Tox screen is pending. Emergency Department Course and Treatment: Undergo both cardiac workup and a mental health evaluation. He will be given aspirin p.o. and IV Ativan. On repeat exam at 1515 patient is doing well. He is better after the Ativan. He still feels suicidal. I do not feel his chest pain is cardiac in etiology. Is totally reproducible and not associated with exertion. We are waiting a crisis evaluation. Treatment Plan: After crisis evaluation final disposition will be made. Disposition: [] Impression: Acute chest pain Acute chest wall pain Depression, anxiety and suicidal This note was generated with [employer] software. It may contain incorrect words, spelling, and punctuation that were not noted in review of the chart prior to signing ED Disposition - Plan for ED Patient: Chief Complaint: Chest Pain Referrals: Josue St MD [Primary Care Provider] -
[2018-06-24 14:52] LABS: Absolute Lymphocyte Count 1.69 X10^3/ul (0.83-4.51); Absolute Neutrophil Count 6.7 X10^3/uL (2.0-7.7); Basophil# 0.02 X10^3/uL; Basophil% 0.2 % (0-1); Eosinophils% 1.1 % (0-5); Hematocrit 44.1 % (40-54); Hemoglobin 15.7 g/dl (13.0-16.5); Lymphocyte # 1.69 X10^3/ul (4.0); Mean Corp Hgb Conc 35.6 g/gl (32-36); Mean Corpuscular Hgb 29.7 pg (27.0-32.0); Mean Corpuscular Volume 83.5 fL (80-94); Mean Platelet Vol. 10.1 fl (6.2-12.0); Monocyte# 0.86 X10^3/uL; Monocyte% 9.2 % (0-10); Neutrophil % 71.3 % (47-70); Platelet Count 285 K/mm3 (150-450); RBC Distribution Width CV 12.8 % (11.6-14.6); RBC Distribution Width SD 39.1 fl (35.1-43.9); Red Blood Count 5.28 M/mm3 (4.6-6.2); White Blood Count 9.4 K/mm3 (4.4-11.0)
[2018-06-24 14:55] LABS: Alcohol, Blood (Medical)-Serum < 3.0 mg/dL; POSITIVE COUNT NO; POSITIVE DIFFERENTIAL NO; POSITIVE MORPHOLOGY NO
[2018-06-24 15:02] LABS: Anion Gap 9 (5-15); BUN 23 mg/dL (7-18); BUN/Creat Ratio 18.1 RATIO (10-20); Calcium,Total 9.2 mg/dL (8.5-10.1); Chloride 102 mmol/L (98-107); Creatinine, Serum 1.27 mg/dL (0.70-1.30); EST Glomerular Filtration Rate 61 mL/min (>60); Est Glom Filt Rate - Afr Amer 73 mL/min (>60); Estimated Creatinine Clearance 59.54 ml/min; Glucose 110 mg/dL (74-106); Potassium 3.2 mmol/L (3.5-5.1); Sodium Level 137 mmol/L (136-145)
[2018-06-24] MEDS: LORazepam 2 MG/ML Syringe 1 MG IV (15:11)
--- NOTE | 2018-06-24 15:15 | NURSING ---
CALLED [facility], TALKED TO ALISSA, THEY WILL SEND SOMEONE OVER
[2018-06-24] MEDS: HYDROcodone Bitartrate/Apap 5/325 Tablet PO (16:42)
--- NOTE | 2018-06-24 17:32 | ED.DEP ---
ED Disposition - Plan for ED Patient: Disposition: Home or Assisted Living Chief Complaint: Chest Pain Instructions: ED Strain Chest Wall, ED Depression Referrals: Josue St MD [Primary Care Provider] - As Needed Counseling,Center [GROUP OF PHYSICIANS] - As soon as possible Additional Instructions: Her chest pain appears to be chest wall pain. All your labs, x-ray and EKG were unremarkable. On follow-up with a counseling center soon as possible. Return immediately if you feel suicidal.
--- NOTE | 2018-06-24 18:45 | ED.RN ---
flores arrived in the ed@1834
--- NOTE | 2018-06-24 19:00 | ED.RN ---
lou from [facility], RN is here to be one on one observation for patient
[2018-06-24 21:18] LABS: Amphetamine Urine VISTA POSITIVE (<1000 ng/mL); Barbiturate Urine VISTA NEGATIVE (< 200 ng/mL); Benzodiazepine Urine VISTA POSITIVE (< 200 ng/mL); Cocaine Urine VISTA NEGATIVE (< 300 ng/mL); Ecstacy Urine VISTA POSITIVE (< 500 ng/mL); Methadone Urine VISTA NEGATIVE (< 300 ng/mL); PCP Urine VISTA NEGATIVE (< 25 ng/mL); THC Urine VISTA NEGATIVE (< 50 ng/mL); Vista UDS pH Range 5
[2018-06-24] MEDS: oxyCODONE 5 MG Tablet PO (22:05)
[2018-06-24] MEDS: LORazepam 1 MG Tablet PO (22:05)
[2018-06-25] VITALS (19 sets, daily range): BP systolic 106–146; BP diastolic 64–91; PULSE 64–98; RESP 14–21; O2SAT 92–99
--- NOTE | 2018-06-25 03:43 | ED.RN ---
[facility] called at this time requesting information about patient. Looking back at records no information was faxed to them for admission. Patient information faxed to [facility] at this time for possible admission
--- NOTE | 2018-06-25 05:49 | ED.RN ---
breanne called back and requesting additional labs at this time. Liver profile order given. Spoke with Dr. Tompkins and order given to recheck potassium level at this time
[2018-06-25 06:05] LABS: Potassium 2.9 mmol/L (3.5-5.1)
[2018-06-25 06:16] LABS: AST(SGOT) 50 U/L (15-37); Alanine Aminotransfer ALT/SGPT 29 U/L (16-61); Albumin, Serum 4.1 g/dL (3.2-5.0); Alkaline Phosphatase 96 U/L (45-117); Bilirubin, Direct 0.18 mg/dL (0.00-0.30); Globulin 3.4 g/dL (2.2-4.2); Protein, Total 7.5 g/dL (6.4-8.2)
[2018-06-25] MEDS: oxyCODONE 5 MG Tablet PO ×3 (06:16→21:26)
[2018-06-25] MEDS: LORazepam 1 MG Tablet 2 MG PO (06:17)
--- NOTE | 2018-06-25 09:32 | NURSING ---
CALLED [facility]. TALKED TO RASHIDA. SOMEONE WILL CALL US BACK
--- NOTE | 2018-06-25 09:43 | NURSING ---
RASHIDA, TALA, CALLED BACK. NO ANSWER WHEN SHE CALLS [facility]. SHE WILL KEEP TRYING
--- NOTE | 2018-06-25 11:10 | NURSING ---
AT [facility] IS REVIEWING CHART, PER RASHIDA, CRISIS
--- NOTE | 2018-06-25 13:32 | ED.RN ---
ASSUMED PATIENT CARE. SECOND TROP DRAWN AND SENT TO LAB. 1:1 SITTER AT BEDSIDE. PT RESTING EYES CLOSED. NO S/S DISTRESS. OFFERS NO C/OS.
[2018-06-25] MEDS: LORazepam 1 MG Tablet PO ×2 (15:03→21:25)
[2018-06-25] MEDS: RisperiDONE 0.5 MG Tablet 1 MG PO (15:04)
[2018-06-25] MEDS: Sertraline 100 MG Tablet PO (15:04)
[2018-06-25 17:55] LABS: Potassium 3.5 mmol/L (3.5-5.1)
--- NOTE | 2018-06-25 18:13 | NURSING ---
ARIELA, [facility], HERE
--- NOTE | 2018-06-25 20:28 | ED.RN ---
THIS NURSE SPOKE WITH [facility] TO REVIEW CHART BETWEEN 8-9 IN MORNING
[2018-06-25] MEDS: Mirtazapine 15 MG Tablet PO (21:23)
[2018-06-26] VITALS (13 sets, daily range): BP systolic 119–142; BP diastolic 67–86; PULSE 68–94; RESP 14–18; O2SAT 94–97
[2018-06-26] MEDS: LORazepam 1 MG Tablet PO ×2 (08:04→15:03)
[2018-06-26] MEDS: oxyCODONE 5 MG Tablet 10 MG PO (08:04)
[2018-06-26] MEDS: Sertraline 100 MG Tablet PO (10:34)
[2018-06-26] MEDS: oxyCODONE 5 MG Tablet PO (13:46)
== END 2018-06-26 17:17 ==
PROVIDERS: Emergency Medicine; Emergency Provider Emergency Medicine; Family Provider Family Medicine; PCP Family Medicine
DX: F41.9 Anxiety disorder, unspecified (principal); F32.9 Major depressive disorder, single episode, unspecified; R45.851 Suicidal ideations; R07.89 Other chest pain; J44.9 Chronic obstructive pulmonary disease, unspecified; E78.00 Pure hypercholesterolemia, unspecified; Z85.51 Personal history of malignant neoplasm of bladder; Z79.899 Other long term (current) drug therapy; Z72.0 Tobacco use
CPT/HCPCS: 71045; 80048; 80076; 80307; 80320; 84132; 84484; 85025; 93005; 99285; A4216; G0480

== ENCOUNTER 2020-11-08 08:41 | Inpatient (IN) | payer MEDICARE, SELFPAY ==
[2020-11-08] VITALS (14 sets, daily range): BP systolic 115–137; BP diastolic 73–103; PULSE 91–117; RESP 18–25; TEMP 36.2–37.1; O2SAT 5–974; BMI 35.4; BMI 32.8
--- NOTE | 2020-11-08 09:07 | EKG12_ITS ---
Test Reason : AM EKG Blood Pressure : / mmHG Vent. Rate : 098 BPM Atrial Rate : 098 BPM P-R Int : 146 ms QRS Dur : 096 ms QT Int : 344 ms P-R-T Axes : 068 032 051 degrees QTc Int : 439 ms Normal sinus rhythm Low Voltage QRS (Limb Leads) Confirmed by JAH ORTIZ, GIAN ([id number]), online content editor PAMELA DRISCOLL ([id number]) on 11/09/2020 3:01:40 PM Referred By: TELLO Confirmed By:GIAN TYSON MD
--- NOTE | 2020-11-08 09:07 | RAD_ITS ---
STUDY: X-RAY CHEST REASON FOR EXAM: Male, 65 years old. DYSPNEA ON EXERTION, HX HEP C AND BLADDER CA TECHNIQUE: PA and lateral views of the chest. COMPARISON: Comparison is made with prior study of 06/24/2018. FINDINGS: EKG electrodes are seen. Hyperinflation. The lungs are clear. Stable calcified granulomas. There is no demonstrated pleural abnormality. Normal size heart. Normal mediastinum and erendira. Normal visualized pulmonary arteries. Normal visualized aortic arch and descending thoracic aorta. There are degenerative changes of the visualized thoracic spine. Normal visualized ribs, clavicles, and shoulders. There is no demonstrated abnormality of the visualized soft tissue structures of the upper abdomen. RAD/Chest PA and Lateral IMPRESSION: Hyperinflation. The lungs are clear. Electronically Signed: Zack Yoder MD at 9:46 EST , Service support ,
[2020-11-08 09:26] LABS: Bedside Glucose > 500 mg/dL (70-110)
[2020-11-08 09:31] LABS: Absolute Lymphocyte Count 1.91 X10^3/uL (0.83-4.51); Absolute Neutrophil Count 5.9 X10^3/uL (2.0-7.7); Basophil# 0.06 X10^3/uL; Basophil% 0.7 % (0-1); Eosinophil# 0.28 X10^3/uL; Eosinophils% 3.2 % (0-5); Hematocrit 46.5 % (40-54); Hemoglobin 16.1 g/dL (13.0-16.5); Lymphocyte # 1.91 X10^3/ul (4.0); Lymphocyte % 21.6 % (19-41); Mean Corp Hgb Conc 34.6 g/dL (32-36); Mean Corpuscular Hgb 30.3 pg (27.0-32.0); Mean Corpuscular Volume 87.4 fL (80-94); Mean Platelet Vol. 10.7 fl (6.2-12.0); Monocyte# 0.58 X10^3/uL; Monocyte% 6.6 % (0-10); NRBC Flagged by Analyzer 0 % (0-5); Neutrophil # 5.93 X10^3/uL (2.7-7.7); Neutrophil % 67.1 % (47-70); Platelet Count 211 K/mm3 (150-450); RBC Distribution Width CV 12.8 % (11.6-14.6); RBC Distribution Width SD 40.2 fl (35.1-43.9); Red Blood Count 5.32 M/mm3 (4.6-6.2); White Blood Count 8.8 K/mm3 (4.4-11.0)
--- NOTE | 2020-11-08 09:34 | ED.VIS.GEN ---
History of Present Illness Chief Complaint: Other, Pain/Inj Informant: Patient Onset: Days Context: Sudden Onset Timing: Continuous Quality: Swelling, drainage and pain Location: Right groin region Current Severity: Mild Maximum Severity: Severe Worsened by: Walking Relieved by: Nothing Associated Symptoms: Patient describes polyuria, polydipsia, nocturia and blurred vision Narrative: Is a 68-year-old male on no medications. Is not seen a physician in over 2 years. He presents because of pain swelling redness with drainage right groin area. This has been present for the past several days. He denies history of diabetes. He does give symptoms of diabetes, however. He also does get symptoms of classic exertional angina. He states last week with a walked up his driveway with the garbage can he developed significant chest discomfort became sweaty and short of breath. He states over the past several months to potentially a year he he has had chest discomfort walking up his driveway with diaphoresis. This was the worst episode. He is a smoker of 2 packs/day. He denies hematuria or dysuria. He does report symptoms of claudication especially left calf. He is unable to tell me how far he can walk before he develops claudication type symptoms. He denies prior history of subcutaneous abscess. Prior similar symptoms: No Recent Illness/Hospitalization: No - Past Medical History (1) Bladder cancer Status: Acute (2) COPD (chronic obstructive pulmonary disease) Status: Chronic (3) History of glaucoma Status: Chronic (4) Tobacco dependence syndrome Status: Chronic Past Medical History - Allergies and Home Meds Allergies/Adverse Reactions: Allergies buspirone HCl [From BuSpar] Allergy (Verified 11/08/20 08:43) Other tongue swelling duloxetine [From Cymbalta] Allergy (Verified 11/08/20 08:43) Other gabapentin Allergy (Verified 11/08/20 08:43) Other haloperidol [From Haldol] Allergy (Verified 11/08/20 08:43) Other tongue swelling haloperidol lactate [From Haldol] Allergy (Verified 11/08/20 08:43) Other tongue swelling hydrocodone bitartrate [From Vicodin] Adverse Reaction (Verified 11/08/20 08:43) Other nausea Primary Care Physician: Josue St MD [Primary Care Provider] - Prior records reviewed: Yes - Per old records Surgical History: no surgical history, - - blader surgery Lives: Alone Smoking Status: Current every day smoker Alcohol: None Drugs: None - Family History Paternal Family History: Reports: - - lung cancer Review of Systems General: Reports: Malaise. Denies: Chills, Fever, Subjective, Sweats Eyes: Reports: Blurred Vision - bilaterally. Denies: Visual changes - bilaterally, Diplopia ENT: Denies: Bilateral ear pain, Rhinorrhea, Sore throat Cardiovascular: Reports: Chest pain. Denies: Palpitations, Heart racing Respiratory: Reports: Dyspnea, Cough, Dyspnea on exertion. Denies: Sputum, Orthopnea - Patient sleeps with 2 pillows for comfort., Paroxysmal nocturnal dyspnea Gastrointestinal: Denies: Abdominal pain, Nausea, Vomiting, Diarrhea, Melena, Hematochezia Genitourinary: Denies: Dysuria, Hematuria, Frequency Musculoskeletal: Reports: Swelling, Extremity Pain. Denies: Myalgias, Arthralgias, Neck pain, Back pain Skin: Reports: Rash, Abscess, Wounds Neurological: Reports: Weakness. Denies: Headache, Parasthesia Endocrine: Reports: Polyuria, Polydipsia Hematologic: Denies: Easy bruising Physical Exam Vital Signs/Narrative: Vital Signs Temp Pulse Resp BP Pulse Ox 11/08/20 08:43 97.1 F L 117 H 18 119/85 H 95 Inital Vital Signs reviewed: Yes General: Well nourished, Well developed, Obese Head: Normocephalic, Atraumatic Eyes: Perrl, EOMI. Negative for: Pale conjunctiva, Scleral icterus ENT: No rhinorrhea, TM's clear, Dry mucous membranes. Negative for: Moist mucous membranes Neck: Supple, Nontender, No lymphadenopathy, No JVD Cardiovascular: Regular rhythm, No murmurs, Normal S1, Normal S2, Tachycardia Respiratory: No distress, Chest nontender, Wheezing - With forced expiration only.. Negative for: CTA bilaterally Abdomen: Soft, Nontender, Nondistended, Normal bowel sounds Rectal: Deferred : - - There is erythema of the scrotum on the right side. There is a small pustule that is suggestive of folliculitis. There is inguinal lymphadenopathy. Patient does have a medial proximal right thigh abscess with cellulitis. Back: Nontender, Normal Inspection Extremities: Nontender, No edema, - - PT pulses palpable bilateral. Difficulty palpating PT pulse. Skin: Normal color, No Trauma, Rash. Negative for: Cyanosis, Diaphoresis, Jaundice Neurological: Alert, Oriented x3, Cranial nerves II-XII grossly intact, Normal Strength, Normal Sensation Psychological: Normal affect Diagnostic/Tx/Re-eval Chest X-Ray - ED: 2 View, Read by ED Physician, Normal, Heart, Mediastinum, Bony Structures, No Acute Disease, Chronic Changes, - - X-ray was interpreted by me at 0934. Impressions Chest X-Ray 11/08/20 09:07 IMPRESSION: Hyperinflation. The lungs are clear. Electronically Signed: Zack Yoder MD at 9:46 EST , Service support , 11/08/20 09:07 Chest PA and Lateral [RAD] Stat Laboratory Results 11/08/20 11/08/20 11/08/20 09:22 09:25 09:25 WBC 8.8 RBC 5.32 Hgb 16.1 Hct 46.5 MCV 87.4 MCH 30.3 MCHC 34.6 RDW Std Deviation 40.2 RDW Coeff of Shreya 12.8 Plt Count 211 MPV 10.7 Immature Gran % (Auto) 0.800 Neut % (Auto) 67.1 Lymph % (Auto) 21.6 [place] % (Auto) 6.6 Eos % (Auto) 3.2 Baso % (Auto) 0.7 Absolute Neuts (auto) 5.9 Absolute Lymphs (auto) 1.91 Nucleated RBC % 0 Sodium 133 L Potassium 4.5 Chloride 96 L Carbon Dioxide 29.0 Anion Gap 8 BUN 16 Creatinine 1.43 H Estim Creat Clear Calc 50.81 Est GFR (MDRD) Af Amer 64 Est GFR (MDRD) Non-Af 53 L BUN/Creatinine Ratio 11.2 Glucose 527 H* Lactic Acid Calcium 9.0 Troponin I < 0.015 Acetone Level POC Glucose > 500 H* 11/08/20 11/08/20 09:25 09:45 WBC RBC Hgb Hct MCV MCH MCHC RDW Std Deviation RDW Coeff of Shreya Plt Count MPV Immature Gran % (Auto) Neut % (Auto) Lymph % (Auto) [place] % (Auto) Eos % (Auto) Baso % (Auto) Absolute Neuts (auto) Absolute Lymphs (auto) Nucleated RBC % Sodium Potassium Chloride Carbon Dioxide Anion Gap BUN Creatinine Estim Creat Clear Calc Est GFR (MDRD) Af Amer Est GFR (MDRD) Non-Af BUN/Creatinine Ratio Glucose Lactic Acid 2.2 H* Calcium Troponin I Acetone Level NEGATIVE POC Glucose Heart score is 5. Will call hospitalist for admission for cardiac work-up, treatment of new onset diabetes and cellulitis with yeast infection and abscess right groin. Patient was treated with Zosyn and vancomycin. Wound culture was obtained and culture for MRSA was ordered as well. This patient only has 1 sirs criteria even though his lactate is elevated he does not have severe sepsis. Therefore, blood cultures are not warranted or indicated at this time. - EKG Initial EKG Interpretation: Sinus Tachycardia - Tachycardia ventricular rate 107. MI interval is 142 ms. Cures duration 88 ms. QT duration 338 ms. [place] is normal. Other than the sinus tachycardia the EKG is normal. - Medical Decision Making Gives classic symptoms of exertional angina that has gotten worse over the past month. He also has symptoms consistent with diabetes and a abscess with cellulitis and yeast infection noted right groin. Plan procedural sedation/deep using propofol, I&D of abscess. Cardiac work-up was initiated as well as work-up for diabetes and treatment of cellulitis with abscess. - Critical Care Time Critical care time (excluding procedures): 30-74 minutes - Time 32 minutes this included obtaining history, physical, review of prior records, interpretation of lab results and initiating therapy., Discussing w/Patient &/or Family/Mushroom Cutter, Discussing w/Consultants, Arranging Admission or Transfer Procedures Procedure(s): 1. Deep sedation. 2 I&D abscess right proximal medial thigh. Patient was informed of need for incision and drainage. He was informed of benefits of propofol and complications using propofol. He has no contraindication. After explaining risk benefits of deep sedation and I&D, patient was given opportunity ask questions. None were asked. Proceeded with procedure. Patient was called prior to procedure. He was not hypoxic. He was tachycardic with monitor revealing sinus tach at 115. Patient received a total of 140 mg of propofol. He initially received 80 and required supplementation of 60 more even though the area was anesthetized and he tolerated the local infiltration of 1% lidocaine without difficulty. Incision was made. There was minimal purulent material. Culture was obtained. Blunt dissection was undertaken. Which was placed. This is consistent with a complex I&D of abscess with cellulitis. Start time 0938 and end time 0950. Patient tolerated procedure well. Patient remained tachycardic during the procedure and heart rate at completion was 107. ED Disposition - Plan for ED Patient: Disposition: Acute Care Hospital [facility] Diagnosis: Exertional chest pain, New onset type 2 diabetes mellitus, Acute renal insufficiency, Abscess or cellulitis of groin, Tinea of groin, Claudication of calf muscles, Lactic acidosis due to diabetes mellitus Referrals: Josue St MD [Primary Care Provider] -
[2020-11-08] MEDS: Propofol 200 MG/20 ML Vial IV BOLUS (09:38)
[2020-11-08] MEDS: 0.9% Normal Saline 1,000 ML 1000 ML IV (09:38)
[2020-11-08] MEDS: Lidocaine 1% (20 ml mdv) 20 ML Vial INFILT (09:38)
[2020-11-08 09:50] LABS: Anion Gap 8 (5-15); BUN 16 mg/dL (7-18); BUN/Creat Ratio 11.2 RATIO (10-20); Chloride 96 mmol/L (98-107); Creatinine, Serum 1.43 mg/dL (0.70-1.30); EST Glomerular Filtration Rate 53 mL/min (>60); Est Glom Filt Rate - Afr Amer 64 mL/min (>60); Estimated Creatinine Clearance 50.81 ml/min; Glucose 527 mg/dL (74-106); Potassium 4.5 mmol/L (3.5-5.1); Sodium Level 133 mmol/L (136-145)
[2020-11-08] MEDS: Morphine 4 MG/ML Syringe IV (10:04)
[2020-11-08] MEDS: Fluconazole 100 MG Tablet 200 MG PO (10:04)
[2020-11-08 10:12] LABS: Lactic Acid 2.2 mmol/L (0.4-1.9)
[2020-11-08] MEDS: Insulin Lispro 100 UNIT/ML INSULN.PEN 8 UNIT SC (10:21)
[2020-11-08 10:44] LABS: Hemoglobin A1c 11.7 % (3.8-5.6)
--- NOTE | 2020-11-08 11:16 | CT_ITS ---
STUDY: CT PELVIS WITH CONTRAST REASON FOR EXAM: Male, 65 years old. PAIN, SWELLING, REDNESS, DRAINAGE RIGHT GROIN AREA. RADIATION DOSAGE (If Supplied By Facility): CTDIvol = ( 23.64 ) mGy, DLP = ( 2650.08 ) mGycm TECHNIQUE: Transaxial imaging of the pelvis was performed without oral contrast. IV 100mL Isovue-300 was administered intravenously. Individualized dose optimization techniques were used for this CT. COMPARISON: None. FINDINGS: Focal skin thickening along the medial anterior aspect of the proximal right thigh. Increased markings in the subcutaneous fat with tiny air bubbles. This is suggestive of a possible skin break with the possible subcutaneous infection. Normal urinary bladder. Normal visualized small intestine. There are multiple colonic diverticula of the sigmoid colon consistent with chronic diverticulosis. There is no pelvic fluid. There is no pelvic lymphadenopathy or mass lesion. There is diffuse atherosclerotic calcification of the pelvic arteries. Bilateral inguinal hernias containing fat more prominent on the right side. Degenerative changes of the lumbar spine. CT/Pelvis WITH IV Contrast IMPRESSION: Focal area of skin thickening along the superior medial aspect of the right thigh with mild degree of the increased markings in the subcutaneous tissues with tiny air bubbles. This may be secondary to a laceration or skin break. Electronically Signed: Zack Yoder MD at 12:28 EST , Service support ,
--- NOTE | 2020-11-08 11:26 | PCM.HP.STD ---
Problem List (1) Abscess or cellulitis of groin Status: Acute (2) Bladder cancer Status: Inactive Qualifiers: Bladder location: unspecified site Qualified Code(s): C67.9 - Malignant neoplasm of bladder, unspecified (3) Exertional chest pain Status: Acute (4) Lactic acidosis due to diabetes mellitus Status: Acute (5) New onset type 2 diabetes mellitus Status: Acute (6) Tinea of groin Status: Acute (7) COPD (chronic obstructive pulmonary disease) Status: Chronic Qualifiers: COPD type: emphysema Emphysema type: unspecified Qualified Code(s): J43.9 - Emphysema, unspecified (8) History of glaucoma Status: Chronic (9) Tobacco dependence syndrome Status: Chronic (10) CLAUDIA (acute kidney injury) Status: Acute History of Present Illness Date of Admission: 11/08/20 Chief Complaint: Right groin pain and mass 5 days The patient is a 65 year old M with history of bladder cancer in remission as per patient came to ER with right groin mass and seepage that started about 5 days ago. Patient complain of pain from right groin with migration to lower abdomen. Patient had chills and diaphoresis but has not measured temperature. Patient also felt mild nausea but no vomiting. Besides that, he had a sharp chest pain, one time while going uphill about 3?4 days ago that lasted for 15 seconds. He has chronic shortness of breath, dyspnea on exertion secondary to COPD but there was acute shortness of breath along with chest pain. Chest pain was localized, 5-7/10 intensity with no radiation. Denies prior history of coronary artery disease/PCI but did not had any cath in the past. Patient smokes 2 packs/day since he was in 50s. In ED, patient was found tachycardic, heart rate 114, blood pressure 119/103, respiratory rate 18 to 23/min with no hypoxia. Significant abnormal lab work in the ER shows glucose 527, A1c 11.7, creatinine 1.43, lactic acid 2.2 but normal troponin. No leukocytosis. Twelve-lead EKG shows sinus tachycardia at 107 bpm, QTC 451 ms. Chest x-ray shows hyperinflation but lungs are clear. ER physician did incision and drainage of right groin there is no imaging test done in ER. As per ER physician there was minimal purulent material about 6 mL which was sent for culture MRSA. EMR does not show any previous echo, stress test. [] Past Medical History Past Medical History (Chronic Problems): Chronic Problems COPD (chronic obstructive pulmonary disease) (Chronic) Tobacco dependence syndrome (Chronic) History of glaucoma (Chronic) Allergies buspirone HCl [From BuSpar] Allergy (Verified 11/08/20 08:43) Other tongue swelling duloxetine [From Cymbalta] Allergy (Verified 11/08/20 08:43) Other gabapentin Allergy (Verified 11/08/20 08:43) Other haloperidol [From Haldol] Allergy (Verified 11/08/20 08:43) Other tongue swelling haloperidol lactate [From Haldol] Allergy (Verified 11/08/20 08:43) Other tongue swelling hydrocodone bitartrate [From Vicodin] Adverse Reaction (Verified 11/08/20 08:43) Other nausea Home Medications: Ambulatory Orders Medication Instructions Recorded Albuterol Inhaler [Ventolin Hfa] 2 puff INHALATION Q4H PRN PRN 01/15/16 Surgical History: no surgical history, - - blader surgery Lives: Alone Smoking Status: Current every day smoker Alcohol: None Drugs: None - *Family History Paternal History Items: Cancer, - - lung cancer Review of Systems Constitutional: Reports: Anorexia, Chills, Malaise, Weakness, Fatigue. Denies: Fever, Weight Change HEENT: Denies: Head Aches, Sinus Congestion, Sinus Drainage Cardiovascular: Reports: Chest Pain. Denies: Palpitations Respiratory: Reports: Cough, Shortness of Breath, Shortness of breath upon exertion. Denies: Shortness of breath at rest, Sputum production Gastrointestinal: Reports: Nausea. Denies: Abdominal Pain, Diarrhea, Hematemesis, Hematochezia, Melena, Vomiting Genitourinary: Denies: Dysuria, Frequency, Hematuria Musculoskeletal: Denies: Joint Pain, Joint Tenderness Skin: Denies: Rash, Wounds Neurological: Denies: Numbness, Tingling, Focal weakness Psychiatric: Reports: Anxiety, Depression. Denies: Homicidal Ideations, Suicidal Ideations Hematologic/ Lymphatic: Denies: Easy Bruising, Easy Bleeding VTE Information - Inpt Only VTE Present on Admission: No VTE Mechan Device Prophylaxis: None VTE Pharm Prophylaxis ordered?: Yes Patient Problems: Active and Suspected Problems Exertional chest pain (Acute) New onset type 2 diabetes mellitus (Acute) Abscess or cellulitis of groin (Acute) Tinea of groin (Acute) Lactic acidosis due to diabetes mellitus (Acute) Objective: Physical exam General: Alert, Oriented x3, Cooperative, BMI 35.4 kg/m? HEENT: Atraumatic, PERRLA, EOMI, Normocephalic Oral: No Gingival or Mucosal Lesions/ Ulcerations. Oral mucosa dry. Neck: Supple, No JVD, Negative Carotid Bruits Lungs: Air entry severely diminished in bilateral lungs. No crepitation/rhonchi Cardiovascular: Regular rate, Regular Rhythm, Normal S1, Normal S2, No murmurs Abdomen: Bowel Sounds Present, Soft, Non Tender, Non-Distended : Right groin swelling with tenderness and induration. Status post I&D with wick present. Surrounding bloody stain. No renal angle or suprapubic tenderness. Extremities: No edema, Capillary Refill Less than 3 Seconds Skin: No rashes, No breakdown Musculoskeletal: No Tenderness to Palpation of Joints or Extremities Neurological: Cranial nerves II-XII grossly intact, Deep Tendon Reflexes 2+/4 and Symmetrical, Neuro grossly intact Psych/Mental Status: Flat affect. - Physical Exam Vitals/I&O's: Vital Signs Temp Pulse Resp BP Pulse Ox 97.4 F L 98 18 129/88 H 99 11/08/20 10:49 11/08/20 10:49 11/08/20 10:49 11/08/20 10:49 11/08/20 10:49 Oxygen Flow Rate (L/min) 2 Oxygen Delivery Method [2] Nasal Cannula Oxygen Delivery Method Nasal Cannula Weight: 240 lb Body Mass Index (BMI) 35.4 Finger Stick Blood Glucose 526 Intake and Output for Last 24 Hours 11/06/20 11/07/20 11/08/20 23:59 23:59 23:59 Intake Total 1000 / 1000 Balance 1000 / 1000 Laboratory Results 11/08/20 09:22: POC Glucose > 500 H* 11/08/20 09:25: WBC 8.8, RBC 5.32, Hgb 16.1, Hct 46.5, MCV 87.4, MCH 30.3, MCHC 34.6, RDW Std Deviation 40.2, RDW Coeff of Shreya 12.8, Plt Count 211, MPV 10.7, Immature Gran % (Auto) 0.800, Neut % (Auto) 67.1, Lymph % (Auto) 21.6, Clay % (Auto) 6.6, Eos % (Auto) 3.2, Baso % (Auto) 0.7, Absolute Neuts (auto) 5.9, Absolute Lymphs (auto) 1.91, Nucleated RBC % 0 11/08/20 09:25: Sodium 133 L, Potassium 4.5, Chloride 96 L, Carbon Dioxide 29.0, Anion Gap 8, BUN 16, Creatinine 1.43 H, Estim Creat Clear Calc 50.81, Est GFR (MDRD) Af Amer 64, Est GFR (MDRD) Non-Af 53 L, BUN/Creatinine Ratio 11.2, Glucose 527 H*, Calcium 9.0, Troponin I < 0.015 11/08/20 09:25: Lactic Acid 2.2 H* 11/08/20 09:45: Acetone Level NEGATIVE 11/08/20 10:03: Hemoglobin A1c 11.7 H Current Medications Vancomycin HCl 2,000 mg/ (Sodium Chloride) 540 mls @ 250 mls/hr IV X1 ONE Stop: 11/08/20 13:09 Assessment/Plan All Active Problems Exertional chest pain (Acute) New onset type 2 diabetes mellitus (Acute) Abscess or cellulitis of groin (Acute) Tinea of groin (Acute) Lactic acidosis due to diabetes mellitus (Acute) CLAUDIA (acute kidney injury) (Acute) The patient is a 65 year old M with history of bladder cancer in remission as per patient came to ER with right groin mass and seepage that started about 5 days ago. Significant abnormal lab work in the ER shows glucose 527, A1c 11.7, creatinine 1.43, lactic acid 2.2 but normal troponin. No leukocytosis. Twelve-lead EKG shows sinus tachycardia at 107 bpm, QTC 451 ms. Chest x-ray shows hyperinflation but lungs are clear. ER physician did incision and drainage of right groin there is no imaging test done in ER. As per ER physician there was minimal purulent material about 6 mL which was sent for culture MRSA. EMR does not show any previous echo, stress test. 1. Sepsis due to right groin abscess with surrounding cellulitis: Patient is being admitted in PCU. Had incision and drainage in ER. As patient has history of bladder cancer with no recent follow-up, CT pelvis with IV contrast ordered to look for depth of abscess, cellulitis. Started on vancomycin and Zosyn in ED. Follow-up wound culture. Continue vancomycin and Zosyn and if MRSA culture comes negative, will DC vancomycin. Lactic acid 2.2. Blood pressure is normal. IV fluid normal saline. Monitor intake and output. 2. Exertional chest pain, claudication pain with suspicion of angina, peripheral arterial disease: Serial troponin enzymes. Pharmacological nuclear stress test tomorrow a.m. Repeat EKG. 2D echo ordered. 3. New onset type 2 diabetes mellitus: Glucose 527, A1c 11.7. Previous lab work from 07/04/2017-06/2018 shows glucose 110?224. It seems patient had prediabetes. Anion gap 8, K4.5. Hyponatremia with hypochloremia most likely due to dehydration. 4. Bladder cancer status post 8 times TURBT ([address] Campa and 3 times in [facility]): Patient used to follow Dr. Tolentino, with last cystoscopy in November 2016 as per record. At that time urethral stricture was found and dilatation done. No evidence of bladder cancer or tumor was found. No follow-up with urologist since then. 5. COPD with chronic smoking cigarettes, nicotine use: Patient smokes 2 pack/day. Nicotine patch ordered. DuoNeb every 6 hourly. Patient is not in exacerbation. Advised quitting smoking was told that smoking is a high risk for bladder cancer 6. Anxiety and depression: Patient had multiple ER visits for suicidal ideation and thoughts. Not on antidepressant at home. VTE prophylaxis, high risk: Lovenox 40 mils subcu daily bilateral SCDs Inpatient E&M: 18650 Init Hosp L3
--- NOTE | 2020-11-08 12:22 | ECHOD_ITS ---
Reason For Study: Chest Pain Procedure This was a 2D Doppler, Color Flow transthoracic echocardiogram. Exam performed portable in patient room. Left Ventricle Normal LV size. Left ventricular systolic function is normal. The estimated ejection fraction is 60 %. Stage 1 diastolic dysfunction. No regional wall motion abnormalities noted. Right Ventricle Normal RV size. Normal systolic function. Atria Normal left atrium. Normal right atrium. Mitral Valve Normal mitral valve. Tricuspid Valve Normal tricuspid valve. Aortic Valve Normal aortic valve. Pulmonic Valve Normal pulmonic valve. Great Vessels Normal aortic root. The pulmonary artery is normal size. Normal inferior vena cava. Pericardium/Pleural No pericardial effusion. MMode/2D Measurements & Calculations LVIDd: 4.3 cm IVSd: 1.0 cm Ao root diam: 3.1 cm LVIDs: 2.9 cm LVPWd: 1.0 cm RVDd: 3.7 cm FS: 32.0 % LAV(MOD-bp): 25.5 ml LVAd ap4: 16.5 cm2 SV(MOD-sp4): 21.9 ml LAV(MOD-bp) Indexed: 11.4 ml/m2 EDV(MOD-sp4): 33.9 ml LAV(MOD-sp2): 32.5 ml EDV(sp4-el): 32.7 ml LAV(MOD-sp4): 17.6 ml LVAs ap4: 8.4 cm2 ESV(MOD-sp4): 12.1 ml ESV(sp4-el): 10.6 ml EF(MOD-sp4): 64.5 % EF(sp4-el): 67.6 % SV(sp4-el): 22.1 ml LA A4 area: 9.6 cm2 LA dimension(2D): 3.7 cm RA A4 area: 9.8 cm2 Doppler Measurements & Calculations MV E max cristobal: 75.5 cm/sec Lat Peak E' Cristobal: 7.1 cm/sec Med Peak E' Cristobal: 5.7 cm/sec MV A max cristobal: 98.9 cm/sec E/E' lat: 10.6 E/E' med: 13.3 MV E/A: 0.76 Ao V2 max: 128.6 cm/sec LV V1 max: 115.9 cm/sec PA V2 max: 104.9 cm/sec Ao max P.6 mmHg LV V1 max P.4 mmHg Ao V2 mean: 91.6 cm/sec Ao mean P.6 mmHg Ao V2 VTI: 20.0 cm Interpretation Summary Normal LV size. Left ventricular systolic function is normal. The estimated ejection fraction is 60 %. Stage 1 diastolic dysfunction. Ordering Physician: Pedro García Referring Physician: Josue St Performed By: Meena Patrick, RDCS, RVT
--- NOTE | 2020-11-08 12:22 | EKG12_ITS ---
Test Reason : DIABETIC Blood Pressure : / mmHG Vent. Rate : 107 BPM Atrial Rate : 107 BPM P-R Int : 142 ms QRS Dur : 088 ms QT Int : 338 ms P-R-T Axes : 068 050 061 degrees QTc Int : 451 ms Sinus tachycardia Low Voltage QRS (Limb Leads) Confirmed by JAH ORTIZ, GIAN ([id number]), editorial manager PAMELA DRISCOLL ([id number]) on 11/10/2020 11:09:02 AM Referred By: ARMNADO Confirmed By:GIAN TYSON MD
[2020-11-08] MEDS: 0.9% Normal Saline 1,000 ML 100 ML IV ×2 (13:06→20:48)
[2020-11-08] MEDS: oxyCODONE 5 MG Tablet PO ×2 (13:10→19:41)
[2020-11-08] MEDS: Enoxaparin 40 MG/0.4 ML Syringe SC (13:11)
[2020-11-08 13:27] LABS: Reflex Lactate? Y
[2020-11-08 14:14] LABS: Lactic Acid 0.8 mmol/L (0.4-1.9)
--- NOTE | 2020-11-08 15:26 | EKG12_ITS ---
Test Reason : Blood Pressure : / mmHG Vent. Rate : 096 BPM Atrial Rate : 096 BPM P-R Int : 146 ms QRS Dur : 090 ms QT Int : 356 ms P-R-T Axes : 067 008 062 degrees QTc Int : 449 ms Normal sinus rhythm Nonspecific ST abnormality Abnormal ECG When compared with ECG of 08-NOV-2020 09:51, MANUAL COMPARISON REQUIRED, DATA IS UNCONFIRMED Confirmed by JORGE ORTIZ, JENNIFER ([id number]), legal editor MICHELLE RODRIGUEZ ([id number]) on 11/15/2020 12:55:20 PM Referred By: TELLO Confirmed By:CATALINA PATEL MD
--- NOTE | 2020-11-08 15:44 | PCM.RX.CS ---
Consult Pharmacy has been consulted to manage selected antiobiotic: Vancomycin Type of Consult: New start Suspected Infection: Skin/Soft tissue Labs: Sodium 133 mmol/L (136-145) L 11/08/20 09:25 Potassium 4.5 mmol/L (3.5-5.1) 11/08/20 09:25 Chloride 96 mmol/L (98-107) L 11/08/20 09:25 Carbon Dioxide 29.0 mmol/L (21.0-32.0) 11/08/20 09:25 Anion Gap 8 (5-15) 11/08/20 09:25 BUN 16 mg/dL (7-18) 11/08/20 09:25 Creatinine 1.43 mg/dL (0.70-1.30) H 11/08/20 09:25 Est GFR (MDRD) Af Amer 64 mL/min (>60) 11/08/20 09:25 Est GFR (MDRD) Non-Af 53 mL/min (>60) L 11/08/20 09:25 BUN/Creatinine Ratio 11.2 RATIO (10-20) 11/08/20 09:25 Glucose 527 mg/dL (74-106) H* 11/08/20 09:25 Microbiology: Microbiology 11/08/20 09:44 Wound Abcess - Groin Gram Stain - Final Goal Trough: 15-20 mcg/mL Pharmacy Plan for Drug Dosing: NEW START IV VANCOMYCIN Consulting Physician: TELLO Indication: CELLULITIS/ABSCESS Goal Trough: 15-20 SrCr: 1.43 MG/DL CrCl: 59.4 ML/MIN USING ADJ BW Comments: WOUND CULTURE PENDING. ER DOSE OF 2000MG GIVEN 11/08 @ 1159 Vancomycin Dose: 1000MG Q12 STARTING 11/09 @ 0000 Pharmacy Service will continue to monitor and adjust dosing as required. Labs to be done on [date and time ordered]: 11/09 @ 2316
[2020-11-08] MEDS: Insulin Lispro 100 UNIT/ML INSULN.PEN SC ×2 (16:36→21:09)
[2020-11-08] MEDS: Insulin Lispro 100 UNIT/ML INSULN.PEN 13 UNIT SC (16:36)
[2020-11-08 17:16] LABS: Bedside Glucose 346 mg/dL (70-110)
[2020-11-08 19:29] LABS: Bacteria 0 SEEN /hpf (None Seen); Mucous, Urine 0 SEEN /hpf (<or=2+); White Blood Cells 0 SEEN /hpf (0-5)
[2020-11-08 19:30] LABS: Color, Urine Yellow (Yellow); Glucose, Dipstick 1000 mg/dl (Normal); Ketone-Dipstick 5 mg/dl (Negative); Leukocyte Esterase-Dipstick Negative /ul (Negative); Nitrite-Dipstick Negative (Negative); Occult Blood-Urine 150 /ul (Negative); Protein-Dipstick Negative (Negative); Urine Bilirubin Dipstick Negative (Negative); Urine Clarity Clear (Clear); Urine Urobilinogen Normal (Normal); Urine pH 6.5 (5.0 - 8.0)
[2020-11-08 19:56] LABS: Yeast-Urine RARE /hpf (None Seen)
[2020-11-08 19:57] LABS: Red Blood Cells-Urine 0-5 SEEN /hpf (0-5); Squamous Epithelial Cells - UA 0-5 SEEN /hpf (0-5)
[2020-11-08] MEDS: Ipratropium/Albuterol Sulfate 3 ML AMPUL.NEB INHALATION (20:00)
[2020-11-08 22:15] LABS: Bedside Glucose 271 mg/dL (70-110)
[2020-11-09] VITALS (13 sets, daily range): BP systolic 101–141; BP diastolic 59–92; PULSE 90–96; RESP 18; TEMP 36.6–36.9; O2SAT 92–94
[2020-11-09 00:10] LABS: M R Staph aureus DNA By PCR Negative (Negative); Probe Check PASS; Specimen Processing Control PASS; Staph aureus DNA By PCR NEGATIVE (Negative)
[2020-11-09] MEDS: Vancomycin IV 1,000 MG/200 ML BAG 200 MG IV (01:54)
[2020-11-09] MEDS: oxyCODONE 5 MG Tablet PO ×4 (02:45→17:30)
[2020-11-09] MEDS: Ondansetron 4 MG/2 ML Vial IV ×2 (05:48→16:10)
[2020-11-09 06:05] LABS: Bedside Glucose 252 mg/dL (70-110)
[2020-11-09 06:55] LABS: Absolute Lymphocyte Count 1.62 X10^3/uL (0.83-4.51); Absolute Neutrophil Count 4.9 X10^3/uL (2.0-7.7); Basophil# 0.03 X10^3/uL; Basophil% 0.4 % (0-1); Eosinophil# 0.34 X10^3/uL; Eosinophils% 4.5 % (0-5); Hematocrit 38.7 % (40-54); Hemoglobin 13.2 g/dL (13.0-16.5); Lymphocyte # 1.62 X10^3/ul (4.0); Lymphocyte % 21.6 % (19-41); Mean Corp Hgb Conc 34.1 g/dL (32-36); Mean Corpuscular Hgb 30.1 pg (27.0-32.0); Mean Corpuscular Volume 88.2 fL (80-94); Mean Platelet Vol. 10.2 fl (6.2-12.0); Monocyte# 0.53 X10^3/uL; Monocyte% 7.1 % (0-10); NRBC Flagged by Analyzer 0 % (0-5); Neutrophil # 4.93 X10^3/uL (2.7-7.7); Neutrophil % 65.6 % (47-70); Platelet Count 182 K/mm3 (150-450); RBC Distribution Width CV 12.9 % (11.6-14.6); RBC Distribution Width SD 41.8 fl (35.1-43.9); Red Blood Count 4.39 M/mm3 (4.6-6.2); White Blood Count 7.5 K/mm3 (4.4-11.0)
[2020-11-09 07:33] LABS: AST(SGOT) 115 U/L (15-37); Alanine Aminotransfer ALT/SGPT 116 U/L (16-61); Albumin, Serum 2.9 g/dL (3.2-5.0); Alkaline Phosphatase 171 U/L (45-117); Anion Gap 8 (5-15); BUN 19 mg/dL (7-18); BUN/Creat Ratio 21.2 RATIO (10-20); Bilirubin, Direct 0.19 mg/dL (0.00-0.30); Calcium,Total 7.9 mg/dL (8.5-10.1); Chloride 103 mmol/L (98-107); Cholesterol 261 mg/dL (200); EST Glomerular Filtration Rate 90 mL/min (>60); Est Glom Filt Rate - Afr Amer 109 mL/min (>60); Estimated Creatinine Clearance 80.74 ml/min; Globulin 3.4 g/dL (2.2-4.2); Glucose 258 mg/dL (74-106); High Density Lipoprotein 31 mg/dL; Potassium 3.9 mmol/L (3.5-5.1); Protein, Total 6.3 g/dL (6.4-8.2); Sodium Level 135 mmol/L (136-145); Thyroid Stim Hormone (TSH) 2.74 uIU/mL (0.358-3.74); Triglycerides 1239 mg/dL
--- NOTE | 2020-11-09 07:55 | PCM.PN.HOSP ---
Patient Problems: Active and Suspected Problems Exertional chest pain (Acute) New onset type 2 diabetes mellitus (Acute) Abscess or cellulitis of groin (Acute) Tinea of groin (Acute) Lactic acidosis due to diabetes mellitus (Acute) Acute renal insufficiency (Acute) Claudication of calf muscles (Acute) CLAUDIA (acute kidney injury) (Acute) Reason for Visit: Follow-up for right groin cellulitis with a small abscess. Objective: Patient afebrile. Heart rate and blood pressure well controlled. Not hypoxic. Initial Gram stain of wound culture shows 2+ gram-positive cocci in chains. MRSA nasal screen negative. Vancomycin discontinued. Discussed with ID. Patient complaining of systemic symptoms of fever, cough, generalized headache and weakness. COVID-19 PCR negative. Patient denies recent suicidal ideation or thought or attempt. He denies depressed mood. Physical exam Physical exam General: Alert, Oriented x3, Cooperative, BMI 35.4 kg/m? HEENT: Atraumatic, PERRLA, EOMI, Normocephalic Oral: No Gingival or Mucosal Lesions/ Ulcerations. Oral mucosa dry. Neck: Supple, No JVD, Negative Carotid Bruits Lungs: Air entry severely diminished in bilateral lungs. No crepitation/rhonchi Cardiovascular: Regular rate, Regular Rhythm, Normal S1, Normal S2, No murmurs Abdomen: Bowel Sounds Present, Soft, Non Tender, Non-Distended : Right groin swelling with tenderness and induration, mild improvement. Status post I&D with wick present. No renal angle or suprapubic tenderness. Extremities: No edema, Capillary Refill Less than 3 Seconds Skin: No rashes, No breakdown Musculoskeletal: No Tenderness to Palpation of Joints or Extremities Neurological: Cranial nerves II-XII grossly intact, Deep Tendon Reflexes 2+/4 and Symmetrical, Neuro grossly intact Psych/Mental Status: Flat affect. Vitals/I&O's: Vital Signs Temp Pulse Resp BP Pulse Ox 98.3 F 96 18 141/89 H 92 11/09/20 06:29 11/09/20 07:00 11/09/20 06:29 11/09/20 06:29 11/09/20 06:29 Oxygen Flow Rate (L/min) 2 Oxygen Delivery Method [2] Nasal Cannula Oxygen Delivery Method Room Air Weight: 222 lb 0.088 oz Body Mass Index (BMI) 32.8 Finger Stick Blood Glucose 526 Intake and Output for Last 24 Hours 11/07/20 11/08/20 11/09/20 23:59 23:59 23:59 Intake Total 2650 / 2770 370 / 370 Balance 2650 / 2770 370 / 370 Microbiology Past 72 Hours 11/08/20 09:44 Wound Abcess - Groin Gram Stain - Final Laboratory Results 11/08/20 09:22: POC Glucose > 500 H* 11/08/20 09:25: WBC 8.8, RBC 5.32, Hgb 16.1, Hct 46.5, MCV 87.4, MCH 30.3, MCHC 34.6, RDW Std Deviation 40.2, RDW Coeff of Shreya 12.8, Plt Count 211, MPV 10.7, Immature Gran % (Auto) 0.800, Neut % (Auto) 67.1, Lymph % (Auto) 21.6, Bland % (Auto) 6.6, Eos % (Auto) 3.2, Baso % (Auto) 0.7, Absolute Neuts (auto) 5.9, Absolute Lymphs (auto) 1.91, Nucleated RBC % 0 11/08/20 09:25: Sodium 133 L, Potassium 4.5, Chloride 96 L, Carbon Dioxide 29.0, Anion Gap 8, BUN 16, Creatinine 1.43 H, Estim Creat Clear Calc 50.81, Est GFR (MDRD) Af Amer 64, Est GFR (MDRD) Non-Af 53 L, BUN/Creatinine Ratio 11.2, Glucose 527 H*, Calcium 9.0, Troponin I < 0.015 11/08/20 09:25: Lactic Acid 2.2 H* 11/08/20 09:44: S.aureus Protein A PCR NEGATIVE, MRSA (PCR) Negative 11/08/20 09:45: Acetone Level NEGATIVE 11/08/20 10:03: Hemoglobin A1c 11.7 H 11/08/20 13:00: Troponin I < 0.015 11/08/20 13:37: Lactic Acid 0.8 11/08/20 15:23: Troponin I < 0.015 11/08/20 16:33: POC Glucose 346 H 11/08/20 19:00: Urine Color Yellow, Urine Clarity Clear, Urine pH 6.5, Ur Specific [place] 1.010, Urine Protein Negative, Urine Glucose (UA) 1000 H, Urine Ketones 5 H, Urine Occult Blood 150 H, Urine Nitrite Negative, Urine Bilirubin Negative, Urine Urobilinogen Normal, Ur Leukocyte Esterase Negative, Urine RBC 0-5 SEEN, Urine WBC 0 SEEN, Ur Squamous Epith Cells 0-5 SEEN, Urine Bacteria 0 SEEN, Urine Mucus 0 SEEN, Urine Yeast RARE 11/08/20 21:06: POC Glucose 271 H 11/09/20 06:00: POC Glucose 252 H 11/09/20 06:45: Sodium 135 L, Potassium 3.9, Chloride 103, Carbon Dioxide 24.0, Anion Gap 8, BUN 19 H, Creatinine 0.90, Estim Creat Clear Calc 80.74, Est GFR (MDRD) Af Amer 109, Est GFR (MDRD) Non-Af 90, BUN/Creatinine Ratio 21.2 H, Glucose 258 H, Calcium 7.9 L, Total Bilirubin 0.70, Direct Bilirubin 0.19, AST 115 H, ALT 116 H, Alkaline Phosphatase 171 H, Total Protein 6.3 L, Albumin 2.9 L, Globulin 3.4, Triglycerides 1239 H, Cholesterol 261 H, LDL Cholesterol TNP, VLDL Cholesterol TNP, HDL Cholesterol 31 L, TSH 2.74 11/09/20 06:45: WBC 7.5, RBC 4.39 L, Hgb 13.2, Hct 38.7 L, MCV 88.2, MCH 30.1, MCHC 34.1, RDW Std Deviation 41.8, RDW Coeff of Shreya 12.9, Plt Count 182, MPV 10.2, Immature Gran % (Auto) 0.800, Neut % (Auto) 65.6, Lymph % (Auto) 21.6, Bland % (Auto) 7.1, Eos % (Auto) 4.5, Baso % (Auto) 0.4, Absolute Neuts (auto) 4.9, Absolute Lymphs (auto) 1.62, Nucleated RBC % 0 Current Medications Acetaminophen (Acetaminophen 325 Mg Tablet) 650 mg PO Q6H PRN PRN PRN Reason: Pain Score 1-10/Temp > 100.7 F Al Hydroxide/Mg Hydroxide (Mag Hydrox/Al Hydrox/Simeth 30 Ml Udc) 30 ml PO Q6H PRN PRN PRN Reason: Gastric Burning Albuterol Sulfate (Albuterol 2.5 Mg/3 Ml Vial.Neb.) 2.5 mg INHALATION Q2H PRN PRN PRN Reason: SOB/Wheezing Albuterol/Ipratropium (Ipratropium/Albuterol Sulfate 3 Ml Ampul.Neb) 3 ml INHALATION Q6HWA.RT [facility] Last Admin: 11/08/20 20:00 Dose: 3 ml Documented by: Dextrose (Dextrose 50%-Water 25 Gm/50 Ml Disp.Syrin) 0 gm IV X1 PRN; Protocol PRN Reason: Hypoglycemia Enoxaparin Sodium (Enoxaparin 40 Mg/0.4 Ml Syringe) 40 mg SC DAILY [facility] Last Admin: 11/08/20 13:11 Dose: 40 mg Documented by: Glucagon (Glucagon 1 Mg/Ml Syringe) 1 mg IM .X1 PRN PRN Reason: Hypoglycemia Sodium Chloride () 1,000 mls @ 100 mls/hr IV .Q10H [facility] Stop: 11/09/20 08:21 Last Admin: 11/08/20 20:48 Dose: 100 mls/hr Documented by: Piperacillin Sod/Tazobactam (Sod 3.375 gm/ Sodium Chloride) 50 mls @ 12.5 mls/hr IV Q8 [facility] Last Admin: 11/09/20 05:16 Dose: 12.5 mls/hr Documented by: Influenza Virus Vaccine Quadrival (Influenza Vaccine (6mos+)/Pf 0.5 Ml Syringe) 0.5 ml IM .ONCE ONE Stop: 11/09/20 10:01 Insulin Glargine (Insulin Glargine 100 Units/Ml Pen) 15 units SC BID [facility] Last Admin: 11/08/20 21:08 Dose: 15 u Documented by: Insulin Human Lispro (Insulin Lispro 100 Unit/Ml Insuln.Pen) 13 unit SC TIDAC [facility] Last Admin: 11/08/20 16:36 Dose: 13 u Documented by: Insulin Human Lispro (Insulin Lispro 100 Unit/Ml Insuln.Pen) 0 unit SC ACHS [facility]; Protocol Last Admin: 11/08/20 21:09 Dose: 6 u Documented by: Melatonin (Melatonin 10 Mg Tablet) 10 mg PO QHS PRN PRN Reason: insomnia Morphine Sulfate (Morphine 2 Mg/Ml Syringe) 2 mg IV Q3H PRN PRN PRN Reason: Pain Score 6-10 Nitroglycerin (Nitroglycerin (Inpatient Use) 0.4 Mg Tab.Subl) 0.4 mg SUBLINGUAL Q5M PRN PRN Reason: CARDIAC/CHEST PAIN Ondansetron HCl (Ondansetron 4 Mg/2 Ml Vial) 4 mg IV Q8H PRN PRN PRN Reason: NAUSEA/VOMITING Last Admin: 11/09/20 05:48 Dose: 4 mg Documented by: Oxycodone HCl (Oxycodone 5 Mg Tablet) 5 mg PO Q4H PRN PRN PRN Reason: Pain Score 4-5 Last Admin: 11/09/20 06:48 Dose: 5 mg Documented by: Prochlorperazine Edisylate (Prochlorperazine 10 Mg/2 Ml Vial) 5 mg IV Q4H PRN PRN PRN Reason: Breakthrough Nausea/Vomiting Senna/Docusate Sodium (Senna/Docusate Sodium 1 Tablet) 2 tablet PO BID PRN PRN PRN Reason: Constipation Sodium Chloride (0.9% Saline Lock 10 Ml Syringe) 10 - 40 ml IV UD PRN PRN Reason: SALINE FLUSH STROKE Vital Signs/Narrative: Vital Signs Temp Pulse Resp BP Pulse Ox 11/09/20 07:00 96 11/09/20 06:29 98.3 F 96 18 141/89 H 92 Medical Necessity - Tobacco Use Smoking Status: Current every day smoker Tobacco Use: Cigarettes Assessment/Plan All Active Problems Exertional chest pain (Acute) New onset type 2 diabetes mellitus (Acute) Abscess or cellulitis of groin (Acute) Tinea of groin (Acute) Lactic acidosis due to diabetes mellitus (Acute) Acute renal insufficiency (Acute) Claudication of calf muscles (Acute) CLAUDIA (acute kidney injury) (Acute) The patient is a 65 year old M with history of bladder cancer in remission as per patient came to ER with right groin mass and seepage that started about 5 days ago. Significant abnormal lab work in the ER shows glucose 527, A1c 11.7, creatinine 1.43, lactic acid 2.2 but normal troponin. No leukocytosis. Twelve-lead EKG shows sinus tachycardia at 107 bpm, QTC 451 ms. Chest x-ray shows hyperinflation but lungs are clear. ER physician did incision and drainage of right groin there is no imaging test done in ER. As per ER physician there was minimal purulent material about 6 mL which was sent for culture MRSA. EMR does not show any previous echo, stress test. 1. Sepsis due to right groin abscess with surrounding cellulitis: Patient is being admitted in PCU. Had incision and drainage in ER. As patient has history of bladder cancer with no recent follow-up, CT pelvis with IV contrast ordered to look for depth of abscess, cellulitis. Started on vancomycin and Zosyn in ED and continued. Lactic acid 2.2. 11/09: ID consulted. There was concern for COVID-19 but ruled out with negative Covid 19 PCR test final Gram stain shows Streptococcus group B. Vancomycin discontinued. Currently on IV Zosyn. CT pelvis shows focal area of skin thickening along right groin and superior medial aspect of right thigh with tiny air bubbles probably from I&D. 2. Exertional chest pain, claudication pain with suspicion of angina, peripheral arterial disease: Serial troponin enzymes are negative. 2D echo reported as Interpretation Summary Normal LV size. Left ventricular systolic function is normal. The estimated ejection fraction is 60 %. Stage 1 diastolic dysfunction. Discussed with the water aerobics instructor. Pharmacological nuclear stress test for tomorrow a.m. Triglyceride 1239, total cholesterol 261. LDL cannot be calculated and started on atorvastatin 80 mg daily. 3. New onset type 2 diabetes mellitus: Glucose 527, A1c 11.7. Previous lab work from 07/04/2017-06/2018 shows glucose 110?224. It seems patient had prediabetes. Anion gap 8, K4.5. Hyponatremia with hypochloremia most likely due to dehydration. Electrolytes are in acceptable limit. Sodium improved to 135. ALT and AST 100 5916 respectively. 4. Bladder cancer status post 8 times TURBT ([address] Campa and 3 times in [facility]): Patient used to follow Dr. Tolentino, with last cystoscopy in November 2016 as per record. At that time urethral stricture was found and dilatation done. No evidence of bladder cancer or tumor was found. No follow-up with urologist since then. 5. COPD with chronic smoking cigarettes, nicotine use: Patient smokes 2 pack/day. Nicotine patch ordered. DuoNeb every 6 hourly. Patient is not in exacerbation. Advised quitting smoking was told that smoking is a high risk for bladder cancer 6. Anxiety and depression: Patient had multiple ER visits for suicidal ideation and thoughts. Not on antidepressant at home. VTE prophylaxis, high risk: Lovenox 40 mg subcu daily bilateral SCDs Clinical Impression(s) from Imaging Studies Chest X-Ray 11/08/20 09:07 IMPRESSION: Hyperinflation. The lungs are clear. Pelvis CT 11/08/20 11:16 IMPRESSION: Focal area of skin thickening along the superior medial aspect of the right thigh with mild degree of the increased markings in the subcutaneous tissues with tiny air bubbles. This may be secondary to a laceration or skin break. Electronically Signed: Zack Yoder MD at 12:28 EST , Service support , Inpatient E&M: 53710 Subs Hosp L2
[2020-11-09] MEDS: 0.9% Saline Lock 10 ML Syringe IV ×3 (08:12→21:21)
[2020-11-09] MEDS: proCHLORPERazine 10 MG/2 ML Vial 5 MG IV ×2 (08:14→21:22)
[2020-11-09] MEDS: Insulin Lispro 100 UNIT/ML INSULN.PEN 13 UNIT SC ×2 (08:53→11:35)
[2020-11-09] MEDS: Insulin Lispro 100 UNIT/ML INSULN.PEN SC ×3 (08:53→21:11)
[2020-11-09 09:06] LABS: Bedside Glucose 264 mg/dL (70-110)
--- NOTE | 2020-11-09 11:01 | CASEMGMT ---
Pt being tested for COVID at this time. This RN CM attempted to call room without success to complete assessment via phone at this time d/t precautions. Will attempt later. SStki LOVING CM
[2020-11-09] MEDS: Enoxaparin 40 MG/0.4 ML Syringe SC (11:35)
[2020-11-09 11:50] LABS: Bedside Glucose 177 mg/dL (70-110)
--- NOTE | 2020-11-09 13:51 | CASEMGMT ---
RN SAROJ called patient in room for initial transition planning/care coordination assessment. INDER KYLE introduced self and role at [facility]. Patient is alert and oriented. Patient willing to participate in assessment and is able to answer all questions appropriately. Care providers, pharmacy, and demographics verified. Patient wishes to discharge home, denies need for home health at this time. Patient states he has no further needs or concerns at this time. CM to follow for discharge planning needs that may arise. PCP: Maciel Specialists: none Preferred Pharmacy: [facility] Insurance: [employer] [facility] Prescription Benefit: yes Living Will/HPOA: none LNOK: Brother, mother Living Arrangements: Patient lives alone in a first floor apartment with 5 steps and railing to enter the home. Patient states he is independent at home. Transportation: Patient does not drive, brother helps with transportation. DME/HHC: Patient denies DME or previous HHC. Patient has no preference for DME company. Will monitor for need for home oxygen at discharge. Disposition Plan: Patient to discharge home with family support and follow-up plans in place. Aliyah HERNANDES, RN, CM
[2020-11-09 16:20] LABS: Bedside Glucose 112 mg/dL (70-110)
--- NOTE | 2020-11-09 16:38 | PCM.HP.ID ---
Problem List (1) Abscess or cellulitis of groin Status: Acute Reason for Consult: groin abscess Consulted by: Dr. García History of Present Illness: The patient is a 65 year old M presented with about a week of cough, dyspnea, fever, headache, nausea, vomiting, fever, chills. Also c/o R groin pain/redness/swelling, no drainage, no inciting event. Came to ED, I&D done, feeling better, on vanc/zosyn. Lives alone, no sick contacts. No change in taste or smell. Full ROS performed and neg except as noted above. - Medical History Past Medical History (Chronic Problems): Chronic Problems COPD (chronic obstructive pulmonary disease) (Chronic) Tobacco dependence syndrome (Chronic) History of glaucoma (Chronic) Allergies/Adverse Reactions: Allergies buspirone HCl [From BuSpar] Allergy (Verified 11/08/20 08:43) Other tongue swelling duloxetine [From Cymbalta] Allergy (Verified 11/08/20 08:43) Other gabapentin Allergy (Verified 11/08/20 08:43) Other haloperidol [From Haldol] Allergy (Verified 11/08/20 08:43) Other tongue swelling haloperidol lactate [From Haldol] Allergy (Verified 11/08/20 08:43) Other tongue swelling hydrocodone bitartrate [From Vicodin] Adverse Reaction (Verified 11/08/20 08:43) Other nausea Home Medications: Ambulatory Orders Medication Instructions Recorded Albuterol Inhaler [Ventolin Hfa] 2 puff INHALATION Q4H PRN PRN 01/15/16 Ibuprofen [Advil] 200 mg PO 11/08/20 - Social History SMOKING STATUS:: Current every day smoker Vital Signs Temp Pulse Resp BP Pulse Ox 97.9 F 92 18 116/65 92 11/09/20 11:40 11/09/20 15:00 11/09/20 11:40 11/09/20 11:40 11/09/20 14:55 Oxygen Flow Rate (L/min) 2 Oxygen Delivery Method [2] Nasal Cannula Oxygen Delivery Method Room Air Weight: 101.922 kg Body Mass Index (BMI) 32.8 Finger Stick Blood Glucose 526 Microbiology Past 72 Hours 11/08/20 09:44 Gram Stain - Final Wound Abcess - Groin Wound Culture - Preliminary Streptococcus group B Laboratory Tests Past 24 Hrs 11/08/20 11/08/20 11/09/20 09:44 19:00 06:45 WBC RBC Hgb Hct MCV MCH MCHC RDW Std Deviation RDW Coeff of Shreya Plt Count MPV Immature Gran % (Auto) Neut % (Auto) Lymph % (Auto) [place] % (Auto) Eos % (Auto) Baso % (Auto) Absolute Neuts (auto) Absolute Lymphs (auto) Nucleated RBC % Sodium 135 L Potassium 3.9 Chloride 103 Carbon Dioxide 24.0 Anion Gap 8 BUN 19 H Creatinine 0.90 Estim Creat Clear Calc 80.74 Est GFR (MDRD) Af Amer 109 Est GFR (MDRD) Non-Af 90 BUN/Creatinine Ratio 21.2 H Glucose 258 H Calcium 7.9 L Total Bilirubin 0.70 Direct Bilirubin 0.19 AST 115 H ALT 116 H Alkaline Phosphatase 171 H Total Protein 6.3 L Albumin 2.9 L Globulin 3.4 Triglycerides 1239 H Cholesterol 261 H LDL Cholesterol TNP VLDL Cholesterol TNP HDL Cholesterol 31 L TSH 2.74 Urine Color Yellow Urine Clarity Clear Urine pH 6.5 Ur Specific [place] 1.010 Urine Protein Negative Urine Glucose (UA) 1000 H Urine Ketones 5 H Urine Occult Blood 150 H Urine Nitrite Negative Urine Bilirubin Negative Urine Urobilinogen Normal Ur Leukocyte Esterase Negative Urine RBC 0-5 SEEN Urine WBC 0 SEEN Ur Squamous Epith Cells 0-5 SEEN Urine Bacteria 0 SEEN Urine Mucus 0 SEEN Urine Yeast RARE COVID-19 (KEIKO) S.aureus Protein A PCR NEGATIVE MRSA (PCR) Negative 11/09/20 11/09/20 06:45 Unknown WBC 7.5 RBC 4.39 L Hgb 13.2 Hct 38.7 L MCV 88.2 MCH 30.1 MCHC 34.1 RDW Std Deviation 41.8 RDW Coeff of Shreya 12.9 Plt Count 182 MPV 10.2 Immature Gran % (Auto) 0.800 Neut % (Auto) 65.6 Lymph % (Auto) 21.6 [place] % (Auto) 7.1 Eos % (Auto) 4.5 Baso % (Auto) 0.4 Absolute Neuts (auto) 4.9 Absolute Lymphs (auto) 1.62 Nucleated RBC % 0 Sodium Potassium Chloride Carbon Dioxide Anion Gap BUN Creatinine Estim Creat Clear Calc Est GFR (MDRD) Af Amer Est GFR (MDRD) Non-Af BUN/Creatinine Ratio Glucose Calcium Total Bilirubin Direct Bilirubin AST ALT Alkaline Phosphatase Total Protein Albumin Globulin Triglycerides Cholesterol LDL Cholesterol VLDL Cholesterol HDL Cholesterol TSH Urine Color Urine Clarity Urine pH Ur Specific [place] Urine Protein Urine Glucose (UA) Urine Ketones Urine Occult Blood Urine Nitrite Urine Bilirubin Urine Urobilinogen Ur Leukocyte Esterase Urine RBC Urine WBC Ur Squamous Epith Cells Urine Bacteria Urine Mucus Urine Yeast COVID-19 (KEIKO) Not Detected S.aureus Protein A PCR MRSA (PCR) - Other Studies Radiology: [] reviewed Other Studies: [] Route of nutrition/ use of supplements: [] Nutritional Intake: [] IV Site: [] Steinberg Catheter: [] - Physical Exam General: Alert, Oriented x3, Cooperative, No apparent distress HEENT: Atraumatic, PERRLA, EOMI Neck: Supple, No Nodes Lungs: Wheezes Cardiovascular: Regular rate, Regular Rhythm Abdomen: Soft, Non Tender, Non-Distended Extremities: No edema Skin: Ulcer/ Wound - r groin, minimal redness or induration, mild tenderness Musculoskeletal: No Tenderness to Palpation of Joints or Extremities Neurological: Cranial nerves II-XII grossly intact - Assessment/Plan Antibiotics: [] Assessment/Plan: [] Active and Suspected Problems Exertional chest pain (Acute) New onset type 2 diabetes mellitus (Acute) Abscess or cellulitis of groin (Acute) Tinea of groin (Acute) Lactic acidosis due to diabetes mellitus (Acute) Acute renal insufficiency (Acute) Claudication of calf muscles (Acute) CLAUDIA (acute kidney injury) (Acute) GBS R groin abscess - improving, narrow abx to unasyn. With one week of reported fever, chills, headache, aches, n/v, will check covid. Result is neg. No lymphopenia, no sick contacts. Will follow, thank you, d/w Dr. García
--- NOTE | 2020-11-09 16:57 | PCS.PANDOC ---
PANDEMIC DOCUMENTATION INITIATED: Date: 11/08/20 Time: 8303
[2020-11-09 21:20] LABS: Bedside Glucose 169 mg/dL (70-110)
[2020-11-10 03:00] VITALS: PULSE 90
[2020-11-10 03:30] VITALS: BP 113/60; PULSE 89; RESP 18; TEMP 36.5; O2SAT 93
[2020-11-10] MEDS: oxyCODONE 5 MG Tablet PO (05:04)
[2020-11-10 05:42] LABS: Absolute Lymphocyte Count 1.59 X10^3/uL (0.83-4.51); Absolute Neutrophil Count 3.9 X10^3/uL (2.0-7.7); Basophil# 0.03 X10^3/uL; Basophil% 0.5 % (0-1); Eosinophil# 0.39 X10^3/uL; Hematocrit 37.9 % (40-54); Hemoglobin 12.3 g/dL (13.0-16.5); Lymphocyte # 1.59 X10^3/ul (4.0); Lymphocyte % 24.5 % (19-41); Mean Corp Hgb Conc 32.5 g/dL (32-36); Mean Corpuscular Hgb 29.1 pg (27.0-32.0); Mean Corpuscular Volume 89.6 fL (80-94); Monocyte# 0.51 X10^3/uL; Monocyte% 7.9 % (0-10); NRBC Flagged by Analyzer 0 % (0-5); Platelet Count 170 K/mm3 (150-450); RBC Distribution Width CV 13.2 % (11.6-14.6); RBC Distribution Width SD 43.2 fl (35.1-43.9); Red Blood Count 4.23 M/mm3 (4.6-6.2); White Blood Count 6.5 K/mm3 (4.4-11.0)
--- NOTE | 2020-11-10 05:55 | EKG12_ITS ---
Test Reason : AM Blood Pressure : / mmHG Vent. Rate : 093 BPM Atrial Rate : 093 BPM P-R Int : 116 ms QRS Dur : 096 ms QT Int : 354 ms P-R-T Axes : 033 043 051 degrees QTc Int : 440 ms Normal sinus rhythm Normal ECG When compared with ECG of 09-NOV-2020 05:26, No significant change was found Confirmed by JORGE ORTIZ, JENNIFER ([id number]), darkroom worker MICHELLE RODRIGUEZ ([id number]) on 11/15/2020 12:23:18 PM Referred By: TELLO Confirmed By:CATALINA PATEL MD
[2020-11-10 06:03] LABS: Anion Gap 6 (5-15); BUN 21 mg/dL (7-18); BUN/Creat Ratio 23.9 RATIO (10-20); Calcium,Total 8.1 mg/dL (8.5-10.1); Chloride 105 mmol/L (98-107); Creatinine, Serum 0.88 mg/dL (0.70-1.30); EST Glomerular Filtration Rate 92 mL/min (>60); Est Glom Filt Rate - Afr Amer 112 mL/min (>60); Estimated Creatinine Clearance 82.57 ml/min; Glucose 178 mg/dL (74-106); Potassium 3.6 mmol/L (3.5-5.1); Sodium Level 139 mmol/L (136-145)
[2020-11-10 07:34] VITALS: PULSE 86
--- NOTE | 2020-11-10 07:57 | DS.PCM_ITS ---
Discharge Date and Diagnosis - Problem List Patient Problems: Active and Suspected Problems Exertional chest pain (Acute) New onset type 2 diabetes mellitus (Acute) Abscess or cellulitis of groin (Acute) Tinea of groin (Acute) Lactic acidosis due to diabetes mellitus (Acute) Acute renal insufficiency (Acute) Claudication of calf muscles (Acute) CLAUDIA (acute kidney injury) (Acute) Date of Admission: 11/08/20 Date of Discharge: 11/10/20 - Primary Discharge Diagnosis Acute Problems: Active Problems Exertional chest pain (Acute) New onset type 2 diabetes mellitus (Acute) Abscess or cellulitis of groin (Acute) Tinea of groin (Acute) Lactic acidosis due to diabetes mellitus (Acute) Acute renal insufficiency (Acute) Claudication of calf muscles (Acute) CLAUDIA (acute kidney injury) (Acute) - Secondary Discharge Diagnosis Chronic Problems: Chronic Problems COPD (chronic obstructive pulmonary disease) (Chronic) Tobacco dependence syndrome (Chronic) History of glaucoma (Chronic) Hospital Course and Treatment Imaging Results: 11/10/20 05:55 Nuclear Stress Test - Chemical [NM] AM (NON MEDS) Consultations 11/09/20 09:06 Consult: Onc/Wound/customer relations coordinator Routine Comment: Operations: None Summary of Care Provided: [] The patient is a 65 year old M with history of bladder cancer in remission as per patient came to ER with right groin mass and seepage that started about 5 days ago. Significant abnormal lab work in the ER shows glucose 527, A1c 11.7, creatinine 1.43, lactic acid 2.2 but normal troponin. No leukocytosis. Twelve- lead EKG shows sinus tachycardia at 107 bpm, QTC 451 ms. Chest x-ray shows hyperinflation but lungs are clear. ER physician did incision and drainage of right groin there is no imaging test done in ER. As per ER physician there was minimal purulent material about 6 mL which was sent for culture MRSA. EMR does not show any previous echo, stress test. 1. Sepsis due to right groin abscess with surrounding cellulitis: Patient is being admitted in PCU. Had incision and drainage in ER. Was started on vancomycin and Zosyn in ED and continued. Lactic acid 2.2.CT pelvis shows focal area of skin thickening along right groin and superior medial aspect of right thigh with tiny air bubbles probably from I&D. ID consulted. There was concern for COVID-19 but ruled out with negative Covid 19 PCR test. Final wound culture Streptococcus group B. Vancomycin discontinued. IV Zosyn was changed to Augmentin and patient was given a prescription for 7 more days. 2. Exertional chest pain, claudication pain with suspicion of angina, peripheral arterial disease: Serial troponin enzymes are negative. 2D echo reported as Interpretation Summary Normal LV size. Left ventricular systolic function is normal. The estimated ejection fraction is 60 %. Stage 1 diastolic dysfunction. Triglyceride 1239, total cholesterol 261. LDL cannot be calculated and started on atorvastatin 80 mg daily. Patient is scheduled for stress test and also discussed with Dr. Bruner but patient signed AMA 3. New onset type 2 diabetes mellitus: Glucose 527, A1c 11.7. Previous lab work from 07/04/2017-06/2018 shows glucose 110?224. It seems patient had prediabetes. Anion gap 8, K4.5. Hyponatremia with hypochloremia most likely due to dehydration. Electrolytes are in acceptable limit. Sodium improved to 135. ALT and AST 100 5916 respectively. 4. Bladder cancer status post 8 times TURBT ([address] Campa and 3 times in [facility]): Patient used to follow Dr. Tolentino, with last cystoscopy in November 2016 as per record. At that time urethral stricture was found and dilatation done. No evidence of bladder cancer or tumor was found. No follow- up with urologist since then. 5. COPD with chronic smoking cigarettes, nicotine use: Patient smokes 2 pack/day. Nicotine patch ordered. DuoNeb every 6 hourly. Patient is not in exacerbation. Advised quitting smoking was told that smoking is a high risk for bladder cancer 6. Anxiety and depression: Patient had multiple ER visits for suicidal ideation and thoughts. Not on antidepressant at home. VTE prophylaxis, high risk: Lovenox 40 mg subcu daily bilateral SCDs Patient was given a prescription for Augmentin, atorvastatin and glimepiride advised to take Advil 400 mg every 8 hourly as needed for right groin pain. Patient signed AMA Clinical Impression(s) from Imaging Studies Chest X-Ray 11/08/20 09:07 IMPRESSION: Hyperinflation. The lungs are clear. Pelvis CT 11/08/20 11:16 IMPRESSION: Focal area of skin thickening along the superior medial aspect of the right thigh with mild degree of the increased markings in the subcutaneous tissues with tiny air bubbles. This may be secondary to a laceration or skin break. Patient Problems: Active and Suspected Problems Exertional chest pain (Acute) New onset type 2 diabetes mellitus (Acute) Abscess or cellulitis of groin (Acute) Tinea of groin (Acute) Lactic acidosis due to diabetes mellitus (Acute) Acute renal insufficiency (Acute) Claudication of calf muscles (Acute) CLAUDIA (acute kidney injury) (Acute) Objective: Seen and examined Patient wants to leave and go home. Patient advised plan for stress test, ID follow-up. He does not want to wait. Patient also advised that there is high risk of coronary artery disease and peripheral arterial disease in view of exertional angina, exertional dyspnea and claudication pain but he is adamant of signing AMA and leave Physical exam General: Alert, Oriented x3, Cooperative, BMI 35.4 kg/m? HEENT: Atraumatic, PERRLA, EOMI, Normocephalic Oral: No Gingival or Mucosal Lesions/ Ulcerations. Oral mucosa dry. Neck: Supple, No JVD, Negative Carotid Bruits Lungs: Air entry severely diminished in bilateral lungs. No crepitation/rhonchi Cardiovascular: Regular rate, Regular Rhythm, Normal S1, Normal S2, No murmurs Abdomen: Bowel Sounds Present, Soft, Non Tender, Non-Distended : Mild right groin swelling with tenderness and induration, is much improved. Wick was removed. Dressing changed by nursing staff no renal angle or suprapubic tenderness. Extremities: No edema, Capillary Refill Less than 3 Seconds Skin: No rashes, No breakdown Musculoskeletal: No Tenderness to Palpation of Joints or Extremities Neurological: Cranial nerves II-XII grossly intact, Deep Tendon Reflexes 2+/4 and Symmetrical, Neuro grossly intact Psych/Mental Status: Flat affect. - Physical Exam Vitals/I&O's: Vital Signs Temp Pulse Resp BP Pulse Ox 97.7 F L 86 18 113/60 93 11/10/20 03:30 11/10/20 07:34 11/10/20 03:30 11/10/20 03:30 11/10/20 03:30 Oxygen Flow Rate (L/min) 2 Oxygen Delivery Method [2] Nasal Cannula Oxygen Delivery Method Nasal Cannula Weight: 220 lb 0.341 oz Body Mass Index (BMI) 32.8 Finger Stick Blood Glucose 526 Intake and Output for Last 24 Hours 11/08/20 11/09/20 11/10/20 23:59 23:59 23:59 Intake Total 2650 / 2770 2422.00 / 2422.00 112 / 112 Balance 2650 / 2770 2422.00 / 2422.00 112 / 112 Microbiology Past 72 Hours 11/08/20 09:44 Wound Abcess - Groin Gram Stain - Final 11/08/20 09:44 Wound Abcess - Groin Wound Culture - Final Streptococcus agalactiae (B) Laboratory Results 11/09/20 08:51: POC Glucose 264 H 11/09/20 11:34: POC Glucose 177 H 11/09/20 16:17: POC Glucose 112 H 11/09/20 21:10: POC Glucose 169 H 11/09/20 23:20: Vancomycin Trough 5.0 11/09/20 : COVID-19 (KEIKO) Not Detected 11/10/20 05:30: WBC 6.5, RBC 4.23 L, Hgb 12.3 L, Hct 37.9 L, MCV 89.6, MCH 29.1, MCHC 32.5, RDW Std Deviation 43.2, RDW Coeff of Shreya 13.2, Plt Count 170, MPV 10.0, Immature Gran % (Auto) 1.100 H, Neut % (Auto) 60.0, Lymph % (Auto) 24.5, [place] % (Auto) 7.9, Eos % (Auto) 6.0 H, Baso % (Auto) 0.5, Absolute Neuts (auto) 3.9, Absolute Lymphs (auto) 1.59, Nucleated RBC % 0 11/10/20 05:30: Sodium 139, Potassium 3.6, Chloride 105, Carbon Dioxide 28.0, Anion Gap 6, BUN 21 H, Creatinine 0.88, Estim Creat Clear Calc 82.57, Est GFR (MDRD) Af Amer 112, Est GFR (MDRD) Non-Af 92, BUN/Creatinine Ratio 23.9 H, Glucose 178 H, Calcium 8.1 L Current Medications Acetaminophen (Acetaminophen 325 Mg Tablet) 650 mg PO Q6H PRN PRN PRN Reason: Pain Score 1-10/Temp > 100.7 F Al Hydroxide/Mg Hydroxide (Mag Hydrox/Al Hydrox/Simeth 30 Ml Udc) 30 ml PO Q6H PRN PRN PRN Reason: Gastric Burning Albuterol Sulfate (Albuterol 2.5 Mg/3 Ml Vial.Neb.) 2.5 mg INHALATION Q2H PRN PRN PRN Reason: SOB/Wheezing Albuterol/Ipratropium (Ipratropium/Albuterol Sulfate 3 Ml Ampul.Neb) 3 ml INHALATION Q6HWA.RT [facility] Last Admin: 11/08/20 20:00 Dose: 3 ml Documented by: Atorvastatin Calcium (Atorvastatin Calcium 80 Mg Tablet) 80 mg PO QHS [facility] Last Admin: 11/09/20 21:14 Dose: Not Given Documented by: Dextrose (Dextrose 50%-Water 25 Gm/50 Ml Disp.Syrin) 0 gm IV X1 PRN; Protocol PRN Reason: Hypoglycemia Enoxaparin Sodium (Enoxaparin 40 Mg/0.4 Ml Syringe) 40 mg SC DAILY [facility] Last Admin: 11/09/20 11:35 Dose: 40 mg Documented by: Glucagon (Glucagon 1 Mg/Ml Syringe) 1 mg IM .X1 PRN PRN Reason: Hypoglycemia Ampicillin Sodium/Sulbactam (Sodium 3 gm/ Sodium Chloride) 112 mls @ 150 mls/hr IV Q8 [facility] Last Infusion: 11/10/20 05:45 Dose: Infused Documented by: Insulin Glargine (Insulin Glargine 100 Units/Ml Pen) 15 units SC BID [facility] Last Admin: 11/09/20 21:11 Dose: 15 u Documented by: Insulin Human Lispro (Insulin Lispro 100 Unit/Ml Insuln.Pen) 13 unit SC TIDAC [facility] Last Admin: 11/09/20 16:18 Dose: Not Given Documented by: Insulin Human Lispro (Insulin Lispro 100 Unit/Ml Insuln.Pen) 0 unit SC ACHS [facility]; Protocol Last Admin: 11/09/20 21:11 Dose: 2 u Documented by: Melatonin (Melatonin 10 Mg Tablet) 10 mg PO QHS PRN PRN Reason: insomnia Morphine Sulfate (Morphine 2 Mg/Ml Syringe) 2 mg IV Q3H PRN PRN PRN Reason: Pain Score 6-10 Nitroglycerin (Nitroglycerin (Inpatient Use) 0.4 Mg Tab.Subl) 0.4 mg SUBLINGUAL Q5M PRN PRN Reason: CARDIAC/CHEST PAIN Ondansetron HCl (Ondansetron 4 Mg/2 Ml Vial) 4 mg IV Q8H PRN PRN PRN Reason: NAUSEA/VOMITING Last Admin: 11/09/20 16:10 Dose: 4 mg Documented by: Oxycodone HCl (Oxycodone 5 Mg Tablet) 5 mg PO Q4H PRN PRN PRN Reason: Pain Score 4-5 Last Admin: 11/10/20 05:04 Dose: 5 mg Documented by: Prochlorperazine Edisylate (Prochlorperazine 10 Mg/2 Ml Vial) 5 mg IV Q4H PRN PRN PRN Reason: Breakthrough Nausea/Vomiting Last Admin: 11/09/20 21:22 Dose: 5 mg Documented by: Senna/Docusate Sodium (Senna/Docusate Sodium 1 Tablet) 2 tablet PO BID PRN PRN PRN Reason: Constipation Sodium Chloride (0.9% Saline Lock 10 Ml Syringe) 10 - 40 ml IV UD PRN PRN Reason: SALINE FLUSH Last Admin: 11/09/20 21:21 Dose: 20 ml Documented by: Home Medications: Medications to take at Discharge Albuterol Inhaler [Ventolin Hfa] 2 puff INHALATION Q4H PRN PRN 01/15/16 Amoxicillin/Potassium Clav [Augmentin 875-125 Tablet] 1 ea PO BID #14 tab 11/10/20 Atorvastatin Calcium [Lipitor] 80 mg PO QHS #30 tab 11/10/20 Glimepiride [Amaryl] 1 mg PO DAILY #30 tab 11/10/20 Ibuprofen [Advil] 200 mg PO Q6H PRN #0 11/10/20 Following Prescriptions Were Given to Patient: Glimepiride [Amaryl] 1 mg PO DAILY #30 tab Transmission Status: Received by [facility] Amoxicillin/Potassium Clav [Augmentin 875-125 Tablet] 1 ea PO BID #14 tab Transmission Status: Received by [facility] Atorvastatin Calcium [Lipitor] 80 mg PO QHS #30 tab Transmission Status: Received by [facility] Primary Care Physician: Josue St MD [Primary Care Provider] - Medical Necessity - Tobacco Use Smoking Status: Current every day smoker Tobacco Use: Cigarettes Meaningful Use Info Meaningful Use Diagnoses (Choose all that apply): None applicable Inpatient E&M: [id number] [facility]
== END 2020-11-10 08:25 | disposition left against medical advice (07) | DRG 854 ==
LOC: ED 10:39 → PCU 11:45
PROVIDERS: Internal Medicine Infectious Disease; Admitting Provider Internal Medicine; Emergency Provider Emergency Medicine; PCP Family Medicine; Visit Provider Internal Medicine
DX: A41.9 Sepsis, unspecified organism (principal); L03.314 Cellulitis of groin; N17.9 Acute kidney failure, unspecified; E87.2 Acidosis; L02.214 Cutaneous abscess of groin; E87.1 Hypo-osmolality and hyponatremia; Z23 Encounter for immunization; F17.210 Nicotine dependence, cigarettes, uncomplicated; R07.89 Other chest pain; E11.51 Type 2 diabetes mellitus with diabetic peripheral angiopathy without gangrene; J44.9 Chronic obstructive pulmonary disease, unspecified; B37.9 Candidiasis, unspecified; B35.6 Tinea cruris; E86.0 Dehydration; F32.9 Major depressive disorder, single episode, unspecified; F41.9 Anxiety disorder, unspecified; Z85.51 Personal history of malignant neoplasm of bladder
CPT/HCPCS: 10060; 36415; 71046; 72193; 80048; 80061; 80076; 80202; 81001; 82009; 82962; 83036; 83605; 84443; 84484; 85025; 87070; 87077; 87186; 87205; 87635; 87640; 93005; 93306; 94640; 97802; 99152; 99251; 99285; 99406; G0008; J7030; J7040; Q9967; 90686; A4216; G0463; J0295; J2405; J2785; U0002

== ENCOUNTER 2022-09-12 08:51 | Emergency (ER) | payer MEDICARE, SELFPAY ==
[2022-09-12 08:52] VITALS: BP 127/95; PULSE 125; RESP 20; TEMP 36.6; O2SAT 99; BMI 32.5
--- NOTE | 2022-09-12 09:42 | CT_ITS ---
STUDY: CT LUMBAR SPINE WITHOUT CONTRAST REASON FOR EXAM: Male, 67 years old. Low back pain and left lower extremity pain following a recent fall. The patient has a history of bladder carcinoma. RADIATION DOSAGE (If Supplied By Facility): CTDIvol = ( 23.66 ) mGy, DLP = ( 829.55 ) mGycm TECHNIQUE: The patient was scanned in a multi detector CT scanner. High resolution transaxial imaging was performed. Images were obtained from T12 to S1 vertebral level. Sagittal and coronal images were reconstructed. Individualized dose optimization techniques were used for this CT. COMPARISON: None FINDINGS: Normal lumbar lordosis. There is no substantial scoliosis. Normal vertebrae of the lumbar spine. L1-2: Normal endplates. Normal disc height and morphology. Normal bilateral facet joints. Normal central canal and bilateral lateral recesses. Normal bilateral intervertebral neural foramina. L2-3: Normal endplates. Normal disc height and morphology. Normal bilateral facet joints. Normal central canal and bilateral lateral recesses. Normal bilateral intervertebral neural foramina. L3-4: There is a moderate degree of disc space narrowing and spondylosis. Mild degree of diffuse posterior disc bulge. Mild hypertrophy of the facet joints with bilateral neural foraminal stenosis. L4-5: Moderate degree of the disc space narrowing. Mild degree of diffuse posterior disc bulge causing bilateral neural foraminal stenosis. There is evidence of a spondylolysis of the pars interarticularis of the L5 vertebrae. No significant listhesis is seen. L5-S1: Mild degree of disc space narrowing. Scattered atherosclerotic plaque formation of the abdominal aorta. CT/Spine Lumbar without Contrast IMPRESSION: Multilevel degenerative changes, as described above. Electronically Signed: Zack Yoder MD at 10:23 EST ,
--- NOTE | 2022-09-12 09:42 | RAD_ITS ---
STUDY: X-RAY - LEFT FEMUR REASON FOR STUDY: Male, 67 years old. Left lower extremity pain following a fall. TECHNIQUE: 4 view(s) of the femur. COMPARISON: None. FINDINGS: Normal visualized femur. Normal visualized soft tissue structure. RAD/Femur Min 2 Views IMPRESSION: Normal x-ray examination of the femur. Electronically Signed: Zack Yoder MD at 10:23 [facility] ,
--- NOTE | 2022-09-12 09:42 | RAD_ITS ---
STUDY: X-RAY - PELVIS REASON FOR EXAM: Male, 67 years old. Fall, pain TECHNIQUE: One view of the pelvis was obtained. COMPARISON: None. FINDINGS: There is a non-specific bowel gas pattern. Normal visualized soft tissue structures. Normal bilateral iliac wings, sacroiliac joints and visualized sacrum. Normal visualized bilateral superior and inferior pubic rami. Normal pubic symphysis. Normal ischial tuberosities. Normal visualized right femoral head. Normal right acetabulum. Normal right hip joint. Normal visualized left femoral head. Normal left acetabulum. Normal left hip joint. RAD/Pelvis 1 or 2 Views IMPRESSION: Normal x-ray examination of the pelvis. Electronically Signed: Zack Yoder MD at 10:23 EST ,
--- NOTE | 2022-09-12 09:44 | ED.VIS.FALL ---
HPI HPI - Fall History of Present Illness Chief Complaint: Fall Narrative Narrative: 67-year-old male who denies significant past medical history, although he lists multiple in his EMR, presents with pain in his low back and his left thigh that he has had for the last 2 days. He states he fell on Sunday, square onto his back. Since then he has had low back pain and left thigh pain. Is worse with standing and movement. While he may have hit his head, he states he lost consciousness for 2 to 10 minutes. He called urgent care today who sent him to the ED for evaluation. He has been taking Advil without relief. He is mainly complaining of pain in his left back which radiates to his left thigh. Additionally, he states that both his feet are numb. He has been able to ambulate. He denies any saddle anesthesia. PFSH PFSH Home Medications albuterol sulfate 90 mcg/actuation aerosol inhaler (Ventolin HFA) 2 puff inhalation Q4H PRN PRN Sob &/Or Wheezing 01/15/16 [History Last Taken 07/03/17] amoxicillin 875 mg-potassium clavulanate 125 mg tablet 1 ea PO BID #14 tabs 11/10/20 [Rx Last Taken Unknown] atorvastatin 80 mg tablet 80 mg PO QHS #30 tabs 11/10/20 [Rx Last Taken Unknown] glimepiride 2 mg tablet 1 mg PO DAILY #30 tabs 11/10/20 [Rx Last Taken Unknown] ibuprofen 200 mg tablet 200 mg PO Q6H PRN right groin abscess/pain ##0 11/10/20 [Rx Last Taken 11/08/20 06:00] Allergy/AdvReac Type Severity Reaction Status Date / Time buspirone HCl [From BuSpar] Allergy Other Verified 09/12/22 08:55 duloxetine [From Cymbalta] Allergy Other Verified 09/12/22 08:55 gabapentin Allergy Other Verified 09/12/22 08:55 haloperidol [From Haldol] Allergy Other Verified 09/12/22 08:55 haloperidol lactate Allergy Other Verified 09/12/22 08:55 [From Haldol] hydrocodone bitartrate AdvReac Other Verified 09/12/22 08:55 [From Vicodin] Social History Smoking Status: Current every day smoker tobacco type: cigarettes ROS ROS ED ROS Narrative Constitutional: No fever, no chills. HEENT: No sore throat. No neck pain. No loss of vision. No rhinorrhea. Cardiovascular: No chest pain. No palpitations. No pedal edema. Respiratory: No cough, no shortness of breath. Abdominal: No abdominal pain. No nausea. No vomiting. Genitourinary: No dysuria. No hematuria. Musculoskeletal: No myalgias. Left thigh pain. Low back/lumbar pain. Neurologic: No headaches. No dizziness. No lightheadedness. No saddle anesthesia. Paresthesias of both feet. Skin: No rash. No change in color. Psychiatric: No depression. No anxiety. EXAM Physical Exam Narrative Exam Narrative: Afebrile. Vital signs noted. HEENT: Normocephalic. Atraumatic. PERRL, EOMI. Neck soft and supple. No point tenderness or step off. Cardiovascular: Regular rate and rhythm. No murmurs, rubs, or gallops appreciated. Respiratory: No tachypnea. Lungs clear to auscultation bilaterally. Gastrointestinal: Abdomen soft, nontender, with normoactive bowel sounds. No rebound or guarding. Neurological: Awake. Alert. Nonfocal, nonlateralizing. EHL intact bilaterally. Negative straight leg raising bilaterally. Able to transfer to cot. Skin: No rash. Normal color. No pallor. Musculoskeletal: No pedal edema. Full range of motion extremities. Const Vital Signs: 09/12/22 08:52 09/12/22 10:33 Temperature 97.9 F Temperature Source Temporal Pulse Rate 125 H Respiratory Rate 20 H 18 Blood Pressure 127/95 H Blood Pressure Mean 105 Pulse Ox 99 Oxygen Delivery Method Room Air MDM MDM MDM Narrative Medical decision making narrative: Patient immediately requested analgesia. He was given Ultram here. CT of the lumbar spine along with x-ray of the left femur were obtained, and the pelvis. His imaging studies had been obtained. I reviewed and interpreted his femur x-ray which shows no evidence of fracture. I also reviewed and interpreted his pelvis x-ray which shows no evidence of fracture. I was informed by the lieutenant firefighter that the patient became upset because he was ordered all TRAM and wanted Percocet or Dilaudid for his pain. He eloped from the emergency department prior to his imaging studies being reviewed and his CT of his L-spine returning. I did review his CT which showed degenerative changes. It was also reported that he called everyone racist against [place] because of his being ordered all TRAM instead of any stronger narcotic pain medication. I find this an accurate. Regardless, he had negative imaging. Patient eloped from the emergency department. He was in stable condition. Radiography Diagnostic Testing: Clinical Impression(s) from Imaging Studies Femur X-Ray 09/12/22 09:42 IMPRESSION: Normal x-ray examination of the femur. Electronically Signed: Zack Yoder MD at 10:23 EST , Lumbar Spine CT 09/12/22 09:42 IMPRESSION: Multilevel degenerative changes, as described above. Electronically Signed: Zack Yoder MD at 10:23 EST , Pelvis X-Ray 09/12/22 09:42 IMPRESSION: Normal x-ray examination of the pelvis. Electronically Signed: Zack Yoder MD at 10:23 EST , Discharge Plan Triage Chief Complaint: Fall ED Provider: Dima Alvarez Dx/Rx/DC Orders Clinical Impression: Fall, Lumbar pain, Left thigh pain, Eloped from emergency department Prescriptions: No Action albuterol sulfate [Ventolin HFA] 1 INHALER inhaler 2 puff inhalation Q4H PRN PRN (Reason: Sob &/Or Wheezing) Label Comments: inhaler for shortness of breath atorvastatin 80 MG tablet 80 mg PO QHS Qty: 30 0RF glimepiride 2 MG tablet 1 mg PO DAILY Qty: 30 0RF amoxicillin-pot clavulanate 1 EACH tablet 1 ea PO BID Qty: 14 0RF ibuprofen 200 MG tablet 200 mg PO Q6H PRN (Reason: right groin abscess/pain) Qty: 0 0RF Primary Care Provider: Josue St Referrals: Josue St MD [Primary Care Provider] - Disposition Disposition: Elopement Discharge Date/Time: 09/12/22 10:35
[2022-09-12] MEDS: traMADol 50 MG Tablet PO (10:13)
--- NOTE | 2022-09-12 10:28 | ED.RN ---
THIS RN WENT TO ASSESS PATIENT'S PAIN LEVEL. UPON ENTERING ROOM PATIENT WAS STANDING AT THE SIDE OF THE BED GRABBING HIS SHOES TO GET THEM ON. WHEN THIS RN ASKED WHAT WAS GOING ON AND TOLD HIM WE ARE WAITING FOR IMAGES TO COME BACK PT SAID TO SEND THEM TO HIS GP. PT STATES THIS PLACE IS A JOKE AND YOU ALL ARE RACIST AGAINST [place] AMER[employer]. I AM NOT A JUNKIE. I NEED PERCOCET, MORPHINE OR DILAUDID FOR PAIN, TRAMADOL WON'T DO SHIT. I'M LEAVING. AT THIS POINT PATIENT HAD HIS SHOES AND JACKET ON, THIS RN WAS IN THE DOORWAY SO THIS RN REMOVED HERSELF FROM PATIENTS PATH HE WAS VERY AGITATED AND HE EXITED THE ROOM AND SUBSEQUENTLY THE DEPARTMENT.
[2022-09-12 10:33] VITALS: RESP 18
--- NOTE | 2022-09-12 10:34 | ED.RN ---
DR. JACKSON MADE AWARE OF PATIENTS ELOPEMENT.
== END 2022-09-12 10:35 | disposition left against medical advice (07) ==
LOC: ED 09:50
PROVIDERS: Emergency Provider Emergency Medicine; PCP Family Medicine; Visit Provider Emergency Medicine
DX: M54.50 Low back pain, unspecified (principal); M79.652 Pain in left thigh; F17.210 Nicotine dependence, cigarettes, uncomplicated; W19.XXXA Unspecified fall, initial encounter
CPT/HCPCS: 72131; 72170; 73552; 99282

== ENCOUNTER 2023-09-24 15:00 | Emergency (ER) | payer MEDICARE, SELFPAY ==
[2023-09-24] VITALS (8 sets, daily range): BP systolic 58–117; BP diastolic 50–79; PULSE 67–83; RESP 16–18; TEMP 35.9; O2SAT 93–97; BMI 26.0
--- NOTE | 2023-09-24 15:05 | EKG12_ITS ---
Test Reason : SYNCOPE Blood Pressure : / mmHG Vent. Rate : 068 BPM Atrial Rate : 068 BPM P-R Int : 146 ms QRS Dur : 096 ms QT Int : 424 ms P-R-T Axes : 077 065 068 degrees QTc Int : 450 ms Normal sinus rhythm Normal ECG Confirmed by JORGE ORTIZ, JENNIFER ([id number]), editor continuity and script GAEL ALMANZAR ([id number]) on 10/01/2023 6:57:03 AM Referred By: AR Confirmed By:CATALINA PATEL MD
[2023-09-24 15:19] LABS: Absolute Lymphocyte Count 3.05 X10^3/uL (0.83-4.51); Absolute Neutrophil Count 5.2 X10^3/uL (2.0-7.7); Basophil# 0.05 X10^3/uL; Basophil% 0.5 % (0-1); Eosinophil# 0.26 X10^3/uL; Eosinophils% 2.8 % (0-5); Hematocrit 40.9 % (40-54); Hemoglobin 13.9 g/dL (13.0-16.5); Lymphocyte # 3.05 X10^3/ul (0.83-4.51); Lymphocyte % 32.7 % (19-41); Mean Corpuscular Hgb 30.4 pg (27.0-32.0); Mean Corpuscular Volume 89.5 fL (80-94); Mean Platelet Vol. 9.4 fl (6.2-12.0); Monocyte# 0.71 X10^3/uL; Monocyte% 7.6 % (0-10); NRBC Flagged by Analyzer 0 % (0-5); Neutrophil # 5.21 X10^3/uL (2.7-7.7); Platelet Count 269 K/mm3 (150-450); RBC Distribution Width CV 13.4 % (11.6-14.6); RBC Distribution Width SD 43.8 fl (35.1-43.9); Red Blood Count 4.57 M/mm3 (4.6-6.2); White Blood Count 9.3 K/mm3 (4.4-11.0)
--- NOTE | 2023-09-24 15:31 | EX.ED.DYSGE1 ---
HPI History of Present Illness Chief Complaint: Syncope Narrative Narrative: Patient presents with multiple syncopal episodes that he has had over the last 48 hours. He states he feels lightheaded and dizzy. Complaining of pain in his right ribs. He has past medical history of diabetes for which he takes oral medications. He denies any fevers or chills, no nausea or vomiting, no diarrhea. States he took a taxi here because last time he passed out was around 2:00, over an hour and a half ago. He is not sure how long he passes out for, can be minutes at a time. PFSH PFSH Home Medications albuterol sulfate 90 mcg/actuation aerosol inhaler (Ventolin HFA) 2 puff inhalation Q4H PRN PRN Sob &/Or Wheezing 01/15/16 [History Last Taken 07/03/17] amoxicillin 875 mg-potassium clavulanate 125 mg tablet 1 ea PO BID #14 tabs 11/10/20 [Rx Last Taken Unknown] atorvastatin 80 mg tablet 80 mg PO QHS #30 tabs 11/10/20 [Rx Last Taken Unknown] glimepiride 2 mg tablet 1 mg (1/2 x 2 mg) PO DAILY #30 tabs 11/10/20 [Rx Last Taken Unknown] ibuprofen 200 mg tablet 200 mg PO Q6H PRN right groin abscess/pain ##0 11/10/20 [Rx Last Taken 11/08/20 06:00] Allergy/AdvReac Type Severity Reaction Status Date / Time buspirone HCl [From BuSpar] Allergy Other Verified 09/12/22 08:55 duloxetine [From Cymbalta] Allergy Other Verified 09/12/22 08:55 gabapentin Allergy Other Verified 09/12/22 08:55 haloperidol [From Haldol] Allergy Other Verified 09/12/22 08:55 haloperidol lactate Allergy Other Verified 09/12/22 08:55 [From Haldol] hydrocodone bitartrate AdvReac Other Verified 09/12/22 08:55 [From Vicodin] Social History Smoking Status: Current every day smoker tobacco type: cigarettes ROS ROS ED ROS Narrative Constitutional: No fever, no chills. HEENT: No sore throat. No neck pain. No loss of vision. No rhinorrhea. Cardiovascular: No chest pain. No palpitations. No pedal edema. Respiratory: No cough, no shortness of breath. Abdominal: No abdominal pain. No nausea. No vomiting. Genitourinary: No dysuria. No hematuria. Musculoskeletal: No myalgias. No arthralgias. Neurologic: No headaches. Positive dizziness and lightheadedness. Skin: No rash. No change in color. Psychiatric: No depression. No anxiety. EXAM Physical Exam Narrative Exam Narrative: Afebrile. Vital signs noted. Hypotensive. HEENT: Normocephalic. Atraumatic. PERRL, EOMI. Neck soft and supple. No point tenderness or step off. Cardiovascular: Regular rate and rhythm. No murmurs, rubs, or gallops appreciated. Respiratory: No tachypnea. Lungs clear to auscultation bilaterally. Gastrointestinal: Abdomen soft, nontender, with normoactive bowel sounds. No rebound or guarding. Neurological: Awake. Alert. Nonfocal, nonlateralizing. Skin: No rash. Normal color. No pallor. Musculoskeletal: No pedal edema. Full range of motion extremities. Const Vital Signs: 09/24/23 15:01 09/24/23 15:18 09/24/23 15:26 Temperature 96.6 F L Temperature Source Temporal Pulse Rate 79 Pulse Rate [Lying] Pulse Rate [Sitting (for 1 minute prior to obtaining)] Pulse Rate [Standing (for 1 minute prior to obtaining)] Respiratory Rate 18 Blood Pressure 58/50 L 82/58 L Blood Pressure [Lying] Blood Pressure [Sitting (for 1 minute prior to obtaining)] Blood Pressure [Standing (for 1 minute prior to obtaining)] Blood Pressure Mean 52 66 Blood Pressure Mean [Lying] Blood Pressure Mean [Sitting (for 1 minute prior to obtaining)] Blood Pressure Mean [Standing (for 1 minute prior to obtaining)] Pulse Ox 95 Oxygen Delivery Method Room Air Room Air 09/24/23 16:04 09/24/23 16:16 09/24/23 16:22 Temperature Temperature Source Pulse Rate 68 Pulse Rate [Lying] 67 Pulse Rate [Sitting (for 1 minute prior to obtaining)] 70 Pulse Rate [Standing (for 1 minute prior to obtaining)] 77 Respiratory Rate 16 Blood Pressure 92/71 111/77 Blood Pressure [Lying] 110/71 Blood Pressure [Sitting (for 1 minute prior to obtaining)] 97/71 Blood Pressure [Standing (for 1 minute prior to obtaining)] 76/61 L Blood Pressure Mean 78 88 Blood Pressure Mean [Lying] 84 Blood Pressure Mean [Sitting (for 1 minute prior to obtaining)] 79 Blood Pressure Mean [Standing (for 1 minute prior to obtaining)] 66 Pulse Ox 93 Oxygen Delivery Method Room Air 09/24/23 17:35 09/24/23 18:38 Temperature Temperature Source Pulse Rate 83 77 Pulse Rate [Lying] Pulse Rate [Sitting (for 1 minute prior to obtaining)] Pulse Rate [Standing (for 1 minute prior to obtaining)] Respiratory Rate 16 16 Blood Pressure 92/54 L 108/77 Blood Pressure [Lying] Blood Pressure [Sitting (for 1 minute prior to obtaining)] Blood Pressure [Standing (for 1 minute prior to obtaining)] Blood Pressure Mean 66 87 Blood Pressure Mean [Lying] Blood Pressure Mean [Sitting (for 1 minute prior to obtaining)] Blood Pressure Mean [Standing (for 1 minute prior to obtaining)] Pulse Ox 94 95 Oxygen Delivery Method Room Air Room Air MDM MDM MDM Narrative Medical decision making narrative: Concern is for dehydration and orthostatic hypotension versus orthostatic volume depletion. I reviewed his prior records she has had lactic acidosis secondary to diabetes, and COPD. He is a smoker. I do feel that his hypotension needs to be resolved. Comprehensive workup was pursued. EKG was obtained and interpreted by myself independently as normal sinus rhythm at 68 bpm without ectopy or acute ST changes. No STEMI. No significant change from previous. I reviewed his laboratory work and he has normal white count of 9.3, hemoglobin 13.9, hematocrit 40.9, platelet count normal at 269. Review of his electrolyte panel shows sodium normal at 139 with potassium 3.9, chloride 103. BUN is elevated at 36 with a creatinine of 1.76, indicative of an acute kidney injury. It has been 1.4 in the past. His lactic acid is normal at 1.4, glucose also normal at 164 with an anion gap normal at 5. I have low suspicion for diabetic ketoacidosis. High-sensitivity troponin is 7. Urinalysis is negative for infection but does show 5 ketones. His orthostatics are positive. He was bolused a total of 2 L of normal saline. CT of the brain shows no evidence of an acute hemorrhage. Additionally, chest x-ray in 1 view interpreted by myself shows no evidence of pneumonia or rib fracture, no pneumothorax. I reviewed the radiology report which confirms my independent interpretation. After his second liter, he is feeling markedly improved. He was able to ambulate to the bathroom by himself, and his blood pressure has remained above 100 systolic. I did discuss observation with him initially, but he feels improved. He will follow-up as an outpatient with his primary care provider regarding the elevation in creatinine. I do feel that his reported syncopal episodes may have been secondary to intravascular volume depletion and orthostatic hypotension. I feel he be discharged to follow-up. Return instructions to the emergency department were reviewed. Patient is in agreement with the plan as it was made through shared decision making. Disposition is discharged home in stable condition. History & Record Review Discussion w/independent historian: Patient Additional record(s) reviewed:: Prior ED visit and Prior labs Lab Data Attestation: I reviewed the patient's lab results. Labs: Laboratory Results - last 24 hr 09/24/23 09/24/23 09/24/23 15:10 15:29 17:55 WBC 9.3 RBC 4.57 L Hgb 13.9 Hct 40.9 MCV 89.5 MCH 30.4 MCHC 34.0 RDW Std Deviation 43.8 RDW Coeff of Shreya 13.4 Plt Count 269 MPV 9.4 Immature Gran % (Auto) 0.400 Neut % (Auto) 56.0 Lymph % (Auto) 32.7 [place] % (Auto) 7.6 Eos % (Auto) 2.8 Baso % (Auto) 0.5 Absolute Neuts (auto) 5.2 Absolute Lymphs (auto) 3.05 Nucleated RBC % 0 Sodium 138 Potassium 3.9 Chloride 103 Carbon Dioxide 30.0 Anion Gap 5 BUN 36 H Creatinine 1.76 H Estim Creat Clear Calc 39.61 Est GFR (MDRD) Af Amer 50 L Est GFR (MDRD) Non-Af 41 L BUN/Creatinine Ratio 20.5 H Glucose 164 H Lactic Acid 1.4 Calcium 8.7 Troponin I High Sens 7 Urine Color Yellow Urine Clarity Clear Urine pH 5.0 Ur Specific [place] 1.025 Urine Protein 30 H Urine Glucose (UA) Normal Urine Ketones 5 H Urine Occult Blood Negative Urine Nitrite Negative Urine Bilirubin 1 H Urine Urobilinogen 4 H Ur Leukocyte Esterase 25 H Urine RBC 0 SEEN Urine WBC 0-5 SEEN Ur Squamous Epith Cells 0 SEEN Urine Bacteria 0 SEEN Hyaline Casts 0-5 SEEN Urine Mucus RARE Radiography Diagnostic Testing: Clinical Impression(s) from Imaging Studies Brain CT 09/24/23 15:36 IMPRESSION: No acute intracranial abnormality. Chronic involutional and ischemic changes of the brain. Electronically Signed: Gabino Ernst MD at 16:50 EST , Chest X-Ray 09/24/23 15:47 IMPRESSION: No acute radiographic abnormalities. Electronically Signed: Gabino Ernst MD at 16:51 EST , Discharge Plan Triage Chief Complaint: Syncope ED Provider: Dima Alvarez Dx/Rx/DC Orders Clinical Impression: Orthostatic hypotension, Acute kidney injury, Syncope Instructions: ED Hypotension, Orthostatic, ED Low Blood Pressure, All Causes, ED Fainting, Uncertain Cause Prescriptions: No Action albuterol sulfate [Ventolin HFA] 1 INHALER inhaler 2 puff inhalation Q4H PRN PRN (Reason: Sob &/Or Wheezing) Patient Comments: inhaler for shortness of breath atorvastatin 80 MG tablet 80 mg PO QHS Qty: 30 0RF glimepiride 2 MG tablet 1 mg PO DAILY Qty: 30 0RF amoxicillin-pot clavulanate 1 EACH tablet 1 ea PO BID Qty: 14 0RF ibuprofen 200 MG tablet 200 mg PO Q6H PRN (Reason: right groin abscess/pain) Qty: 0 0RF Primary Care Provider: Shari Faustin Referrals: Josue St MD [Non-Staff] - Activity Restrictions/Additional Instructions: Call Dr. Faustin's office tomorrow for an ED follow-up. Drink plenty of fluids. Return with new or worsening symptoms. Disposition Disposition: Home, Self Care
[2023-09-24 15:33] LABS: Anion Gap 5 (5-15); BUN 36 mg/dL (7-18); BUN/Creat Ratio 20.5 RATIO (10-20); Calcium,Total 8.7 mg/dL (8.5-10.1); Chloride 103 mmol/L (98-107); Creatinine, Serum 1.76 mg/dL (0.70-1.30); EST Glomerular Filtration Rate 41 mL/min (>60); Est Glom Filt Rate - Afr Amer 50 mL/min (>60); Estimated Creatinine Clearance 39.61 ml/min; Glucose 164 mg/dL (74-106); Potassium 3.9 mmol/L (3.5-5.1); Sodium Level 138 mmol/L (136-145)
[2023-09-24] MEDS: 0.9% Normal Saline (1000mL) 1,000 ML 999 ML IV ×2 (15:33→16:29)
--- NOTE | 2023-09-24 15:36 | CT_ITS ---
EXAMINATION : Head CT w/out contrast HISTORY : Head injury COMPARISON : 01/25/2018. TECHNIQUE : Multiple contiguous axial images were obtained from the skull base to the vertex without intravenous contrast. A radiation dose optimization technique was used for this scan. FINDINGS : There is no evidence for acute intracranial hemorrhage, mass effect, or midline shift. There is no extra-axial fluid collection. There are periventricular white matter changes consistent with chronic microvascular ischemic disease. There is sulcal widening and ventricular enlargement consistent with cerebral atrophy. There is normal morales-white differentiation, without CT evidence of acute ischemia or infarct. The skull base and calvarium are unremarkable. The orbits are unremarkable. The paranasal sinuses are clear. The mastoid air cells are well-aerated. The soft tissues are unremarkable. CT/Brain/Head without Contrast IMPRESSION: No acute intracranial abnormality. Chronic involutional and ischemic changes of the brain. Electronically Signed: Gabino Ernst MD at 16:50 EST ,
--- NOTE | 2023-09-24 15:47 | RAD_ITS ---
INDICATION: Coronary artery disease EXAMINATION/TECHNIQUE: X-RAY - XR Chest 1 View COMPARISON: 11/08/2020. FINDINGS: The lungs are clear. Tortuous and calcified thoracic aorta. The heart is mildly enlarged. No pleural effusion or pneumothorax. Degenerative changes of the thoracic spine. RAD/Chest 1 View (Portable) IMPRESSION: No acute radiographic abnormalities. Electronically Signed: Gabino Ernst MD at 16:51 EST ,
[2023-09-24] MEDS: fentaNYL 100 MCG/2 ML Ampul 50 MCG IV (16:07)
[2023-09-24 16:15] LABS: Lactic Acid 1.4 mmol/L (0.4-1.9)
[2023-09-24] MEDS: Ondansetron 4 MG/2 ML Vial IV (16:18)
[2023-09-24 16:21] LABS: Troponin-I HS 7 pg/mL (3.0-78.0)
--- NOTE | 2023-09-24 17:40 | ED.RN ---
patients neighbor called and updated on patient condition and status
[2023-09-24 18:02] LABS: Bacteria 0 SEEN /hpf (None Seen); Red Blood Cells-Urine 0 SEEN /hpf (0-5); Squamous Epithelial Cells - UA 0 SEEN /hpf (0-5)
[2023-09-24 18:04] LABS: Color, Urine Yellow (Yellow); Glucose, Dipstick Normal (Normal); Ketone-Dipstick 5 mg/dl (Negative); Leukocyte Esterase-Dipstick 25 /ul (Negative); Nitrite-Dipstick Negative (Negative); Occult Blood-Urine Negative /ul (Negative); Protein-Dipstick 30 mg/dl (Negative); Specific Gravity, Urine 1.025 (1.002-1.030); Urine Clarity Clear (Clear); Urine Urobilinogen 4 mg/dl (Normal)
[2023-09-24 18:11] LABS: Urine Bilirubin Dipstick 1 mg/dL (Negative)
[2023-09-24 18:17] LABS: Hyaline Cast 0-5 SEEN /lpf (0-5); Mucous, Urine RARE /hpf (<or=2+); White Blood Cells 0-5 SEEN /hpf (0-5)
== END 2023-09-24 19:10 | disposition home or self-care (01) ==
PROVIDERS: Emergency Provider Emergency Medicine; PCP Internal Medicine; Visit Provider Emergency Medicine
DX: I95.1 Orthostatic hypotension (principal); N17.9 Acute kidney failure, unspecified; J44.9 Chronic obstructive pulmonary disease, unspecified; E11.9 Type 2 diabetes mellitus without complications; R55 Syncope and collapse; F17.210 Nicotine dependence, cigarettes, uncomplicated
CPT/HCPCS: 70450; 71045; 80048; 81001; 83605; 84484; 85025; 93005; 96374; 96375; 99285; J7030; A4216; J2405

== ENCOUNTER 2024-05-03 23:40 | Emergency (ER) | payer MEDICARE, SELFPAY ==
[2024-05-03 23:40] VITALS: BP 90/64; PULSE 68; RESP 24; TEMP 36.6; O2SAT 96
[2024-05-03 23:42] VITALS: BMI 27.3
--- NOTE | 2024-05-04 00:13 | EDS_ITS ---
HPI HPI - Fall History of Present Illness Chief Complaint: Fall PFSH PFSH Medical History (Updated 05/03/24 @ 23:50 by Neyda Benito) Diabetes Back pain PTSD (post-traumatic stress disorder) Home Medications ?Medication ?Instructions ?Recorded ?Last Taken ?Type albuterol sulfate 90 mcg/actuation 2 puff inhalation Q4H PRN PRN Sob 01/15/16 07/03/17 History aerosol inhaler (Ventolin HFA) &/Or Wheezing atorvastatin 80 mg tablet 80 mg PO QHS #30 tabs 11/10/20 Unknown Rx glimepiride 2 mg tablet 1 mg (1/2 x 2 mg) PO DAILY #30 tabs 11/10/20 Unknown Rx ibuprofen 200 mg tablet 200 mg PO Q6H PRN right groin 11/10/20 11/08/20 06:00 Rx abscess/pain ##0 escitalopram oxalate 20 mg tablet 20 mg PO DAILY 05/03/24 Unknown History glipizide 5 mg tablet, extended 5 mg PO DAILY diabetes mellitus 05/03/24 Unknown History release 24 hr lorazepam 1 mg tablet 1 mg PO DAILY anxiety 05/03/24 Unknown History oxycodone-acetaminophen 5 mg-325 1 tab Q8H PRN PRN pain 05/03/24 Unknown History mg tablet tizanidine 4 mg tablet 4 mg PO Q8H PRN PRN muscle 05/03/24 Unknown History spasticity Allergy/AdvReac Type Severity Reaction Status Date / Time buspirone HCl (From BuSpar) Allergy Other Verified 09/12/22 08:55 duloxetine (From Cymbalta) Allergy Other Verified 09/12/22 08:55 gabapentin Allergy Other Verified 09/12/22 08:55 haloperidol (From Haldol) Allergy Other Verified 09/12/22 08:55 haloperidol lactate (From Allergy Other Verified 09/12/22 08:55 Haldol) hydrocodone bitartrate (From AdvReac Other Verified 09/12/22 08:55 Vicodin) Social History Smoking Status: Current every day smoker tobacco type: cigarettes EXAM Physical Exam Const Vital Signs: 05/03/24 23:40 05/03/24 23:53 Temperature 97.8 F Temperature Source Temporal Pulse Rate 68 Respiratory Rate 24 H Respiratory Effort Short of Breath Respiratory Depth Normal Blood Pressure 90/64 Blood Pressure Mean 72 Pulse Ox 96 Oxygen Delivery Method Room Air Room Air Discharge Plan Triage Chief Complaint: Fall ED Provider: Manolo Bhatia Dx/Rx/DC Orders Prescriptions: No Action albuterol sulfate [Ventolin HFA] 1 INHALER inhaler 2 puff inhalation Q4H PRN PRN (Reason: Sob &/Or Wheezing) Patient Comments: inhaler for shortness of breath atorvastatin 80 MG tablet 80 mg PO QHS Qty: 30 0RF glimepiride 2 MG tablet 1 mg PO DAILY Qty: 30 0RF ibuprofen 200 MG tablet 200 mg PO Q6H PRN (Reason: right groin abscess/pain) Qty: 0 0RF tizanidine 4 mg tablet 4 mg PO Q8H PRN PRN (Reason: muscle spasticity) glipizide 5 mg tablet extended release 24hr 5 mg PO DAILY oxycodone-acetaminophen 5-325 mg tablet 1 tab Q8H PRN PRN (Reason: pain) lorazepam 1 mg tablet 1 mg PO DAILY escitalopram oxalate 20 mg tablet 20 mg PO DAILY Primary Care Provider: Shari Faustin Referrals: Shari Faustin MD [Primary Care Provider] - Print Language: Bulgarian
--- NOTE | 2024-05-04 00:45 | ED.RN ---
Dr. Wilson attempted to see pt twice. Pt not in room. When this RN checked pt in, he became aggressive and threatened to leave.
== END 2024-05-04 00:35 | disposition left against medical advice (07) ==
LOC: ED 05-04 00:43
PROVIDERS: PCP Internal Medicine
DX: Z53.21 Procedure and treatment not carried out due to patient leaving prior to being seen by health care provider (principal)
CPT/HCPCS: 99281

== ENCOUNTER 2024-05-05 08:22 | Inpatient (IN) | payer MEDICARE, SELFPAY ==
[2024-05-05] VITALS (11 sets, daily range): BP systolic 131–174; BP diastolic 67–98; PULSE 78–100; RESP 18–28; TEMP 36.6–37.2; O2SAT 95–98; BMI 27.6; BMI 28.3
--- NOTE | 2024-05-05 08:33 | EKG12_ITS ---
Test Reason : CP Blood Pressure : / mmHG Vent. Rate : 092 BPM Atrial Rate : 092 BPM P-R Int : 136 ms QRS Dur : 084 ms QT Int : 350 ms P-R-T Axes : 077 053 064 degrees QTc Int : 432 ms Normal sinus rhythm Normal ECG Confirmed by DARLENE ORTIZ, AKIKO ([id number]), newspaper editor managing GAEL ALMANZAR ([id number]) on 05/06/2024 8:42:35 AM Referred By: MAKENZIE Confirmed By:AKIKO COLON MD
--- NOTE | 2024-05-05 08:52 | ED.RN ---
WHEN THIS NURSE WALKED INTO ROOM AND ASKED PT WHAT WAS GOING ON, PT BEGINS YELLING AT THIS NURSE I AM HERE SEEKING DRUGS, YOU GOT DEMEROL?. THIS RN ADDRESSES PT ASKING HAVE I BEEN RUDE TO YOU, I JUST WALKED IN. PT REMAINS ANGRY STATING HE GETS TREATED A DRUG SEEKER. THIS RN REMINDS PT THAT SHE CAN'T HELP HIM IF HE DOESN'T COOPERATE.
--- NOTE | 2024-05-05 08:59 | EX.ED.GENINJ ---
HPI History of Present Illness Chief Complaint: Fall Informant: patient and family Narrative Narrative: 68-year-old male presenting to the emergency room posttrauma day 3 from a fall. Patient states that on Sunday he was getting out of the shower and he tripped and fell. He states that he strike his right posterior lower ribs and hit his head on the commode. He notes a loss of consciousness. He notes a headache neck pain but states that those are of little concern to him. He states that he feels movement of his ribs and can barely ambulate. States he has a hard time getting up from a laying position. He notes no hematuria. He notes an increased cough. He is not coughing up any blood or throwing up any blood. He notes the pain seems to wrap around the ribs to the upper right abdomen. Patient denies any blood thinners. He notes he is a smoker has a history of COPD and diabetes. Patient states he came to the emergency room but left without being seen due to the wait. He has not gone to any other facility. [facility] Medical History Diabetes Back pain PTSD (post-traumatic stress disorder) Home Medications ?Medication ?Instructions ?Recorded ?Last Taken ?Type albuterol sulfate 90 mcg/actuation 2 puff inhalation Q4H PRN PRN Sob 01/15/16 07/03/17 History aerosol inhaler (Ventolin HFA) &/Or Wheezing atorvastatin 80 mg tablet 80 mg PO QHS #30 tabs 11/10/20 Unknown Rx glimepiride 2 mg tablet 1 mg (1/2 x 2 mg) PO DAILY #30 tabs 11/10/20 Unknown Rx ibuprofen 200 mg tablet 200 mg PO Q6H PRN right groin 11/10/20 11/08/20 06:00 Rx abscess/pain ##0 escitalopram oxalate 20 mg tablet 20 mg PO DAILY 05/03/24 Unknown History glipizide 5 mg tablet, extended 5 mg PO DAILY diabetes mellitus 05/03/24 Unknown History release 24 hr lorazepam 1 mg tablet 1 mg PO DAILY anxiety 05/03/24 Unknown History oxycodone-acetaminophen 5 mg-325 1 tab Q8H PRN PRN pain 05/03/24 Unknown History mg tablet tizanidine 4 mg tablet 4 mg PO Q8H PRN PRN muscle 05/03/24 Unknown History spasticity Allergy/AdvReac Type Severity Reaction Status Date / Time buspirone HCl (From BuSpar) Allergy Other Verified 05/05/24 08:23 duloxetine (From Cymbalta) Allergy Other Verified 05/05/24 08:23 gabapentin Allergy Other Verified 05/05/24 08:23 haloperidol (From Haldol) Allergy Other Verified 05/05/24 08:23 haloperidol lactate (From Allergy Other Verified 05/05/24 08:23 Haldol) hydrocodone bitartrate (From AdvReac Other Verified 05/05/24 08:23 Vicodin) Social History Smoking Status: Current every day smoker tobacco type: cigarettes ROS ROS ED Constitutional Constitutional ED: Denies chills, fever(s) or weight loss Eyes Eyes: Denies change in vision or diplopia ENT ENT ED: Denies ear pain, rhinorrhea or sore throat Cardiovascular Cardiovascular: Reports other Details: Right posterior lower chest wall pain/ribs ; Denies chest pain, orthopnea, palpitations or racing heartbeat Respiratory/Chest Respiratory/Chest: Reports cough, dyspnea and dyspnea on exertion; Denies orthopnea Gastrointestinal Gastrointestinal: Reports abdominal pain; Denies diarrhea, nausea or vomiting Genitourinary Genitourinary ED: Denies dysuria, hematuria or urinary frequency Musculoskeletal Musculoskeletal: Reports back pain and neck pain; Denies arthralgias or myalgias Integumentary Denies abscess or rash Neurologic Neurologic: Reports headache(s); Denies weakness Psychiatric Psychiatric: Denies anxiety, depression, suicidal ideation or suicidal thoughts Endocrine Endocrinology: Denies polydipsia, polyphagia or polyuria Allergic/Immunologic Allergic/Immunologic ED: Denies mouth swelling, tongue swelling or urticaria EXAM Physical Exam Const Vital Signs: 05/05/24 08:23 05/05/24 08:55 05/05/24 09:20 Temperature 98 F Temperature Source Temporal Pulse Rate 97 78 Respiratory Rate 22 H 20 H Respiratory Effort Short of Breath Respiratory Pattern Tachypnea Blood Pressure 131/87 H Blood Pressure Mean 101 Pulse Ox 95 Oxygen Delivery Method Room Air 05/05/24 09:28 05/05/24 10:00 05/05/24 11:00 Temperature Temperature Source Pulse Rate 85 84 88 Respiratory Rate 28 H 22 H 22 H Respiratory Effort Respiratory Pattern Blood Pressure 144/89 H 140/84 H 168/93 H Blood Pressure Mean 107 102 118 Pulse Ox 98 98 96 Oxygen Delivery Method Room Air Room Air Room Air Positive well nourished and well developed General Appearance ED: well developed HEENT Reports normocephalic, head/scalp atraumatic and moist mucous membranes Eyes PERRL and EOMs intact bilaterally Neck no lymphadenopathy, supple and no JVD Chest Wall Chest Narrative: Patient has ecchymosis and bony crepitance posterior inferior ribs extending anteriorly through the mid axillary line. Resp Resp Narrative: Patient is tachypneic. He has rhonchi and expiratory wheezing on the right. Patient is able to speak in full sentences. He does appear tachypneic but it appears to be in response to pain Cardio regular rate, regular rhythm and no murmurs GI GI Narrative: Mild tenderness to palpation in the right upper quadrant especially in the lower rib region. Inspection: Negative for abdominal distention Auscultation: normoactive bowel sounds Palpation: soft Back/Spine no CVA tenderness and normal ROM Extremity normal to inspection General Extremety ED: Negative for edema General Extremity: Negative for edema Neuro oriented x3 and CN's II-XII intact bilaterally Sensorium / Orientation: alert Motor Exam: strength 5/5 throughout Psych mental status grossly normal Attitude: agitated Mood & Affect: Negative for depressed or tearful Skin no rashes or lesions noted and no wounds MDM MDM MDM Narrative Medical decision making narrative: Differential diagnosis includes but not limited to intracranial hemorrhage skull fracture cervical spine fracture pulmonary contusion hemothorax rib fracture rib contusion pneumonia liver laceration splenic laceration retroperitoneal hematoma. Basic blood work was obtained shows white count 12.3 hemoglobin 15.5. Normal coags. Liver panel shows an AST of 57 ALT of 38 glucose 110. Urinalysis shows no overt infection or significant hematuria. CT of the brain and cervical spine negative for acute findings. CT chest abdomen pelvis demonstrates 3 rib fractures posteriorly on the right with a small hemothorax and pulmonary contusion. Patient received Dilaudid Toradol Ativan and still is having significant pain. He received a DuoNeb for the expiratory wheezing. Patient does not feel comfortable going home. I will speak with the hospitalist regarding admission for pain control History & Record Review Discussion w/independent historian: Patient Lab Data Attestation: I reviewed the patient's lab results. Labs: Laboratory Results - last 24 hr 05/05/24 05/05/24 09:13 10:10 WBC 12.3 H RBC 5.11 Hgb 15.5 Hct 44.7 MCV 87.5 MCH 30.3 MCHC 34.7 RDW Std Deviation 39.1 RDW Coeff of Shreya 12.2 Plt Count 208 MPV 10.3 Immature Gran % (Auto) 0.500 Neut % (Auto) 77.0 H Lymph % (Auto) 13.9 L [place] % (Auto) 7.0 Eos % (Auto) 1.3 Baso % (Auto) 0.3 Absolute Neuts (auto) 9.5 H Absolute Lymphs (auto) 1.72 Nucleated RBC % 0 PT 12.0 INR 0.9 APTT 23.4 L Sodium 134 L Potassium 4.2 Chloride 99 Carbon Dioxide 27.0 Anion Gap 8 BUN 21 H Creatinine 1.06 Estim Creat Clear Calc 69.66 Est GFR (MDRD) Af Amer 89 Est GFR (MDRD) Non-Af 73 BUN/Creatinine Ratio 19.8 Glucose 110 H Calcium 9.5 Total Bilirubin 0.90 Direct Bilirubin 0.22 AST 57 H ALT 30 Alkaline Phosphatase 107 Troponin I High Sens 3 Total Protein 7.9 Albumin 4.0 Globulin 3.9 Urine Color Yellow Urine Clarity Clear Urine pH 6.0 Ur Specific [place] 1.020 Urine Protein 15 H Urine Glucose (UA) Normal Urine Ketones Negative Urine Occult Blood Negative Urine Nitrite Negative Urine Bilirubin Negative Urine Urobilinogen Normal Ur Leukocyte Esterase 25 H Urine RBC 0 SEEN Urine WBC 0-5 SEEN Ur Squamous Epith Cells 0-5 SEEN Urine Bacteria 1+ Urine Mucus 1+ Radiography Diagnostic Testing: Clinical Impression(s) from Imaging Studies Brain CT 05/05/24 10:10 IMPRESSION: Normal unenhanced CT scan of the brain. Small polyp or retention cyst at the base of the right maxillary sinus. Electronically Signed: Zack Yoder MD at 10:39 EDT , Cervical Spine CT 05/05/24 10:10 IMPRESSION: Multilevel degenerative changes, as described above. Electronically Signed: Zack Yoder MD at 10:58 EDT , Chest/Abdomen/Pelvis CT 05/05/24 10:10 IMPRESSION: Nondisplaced fractures of the posterior aspect of the right eighth and ninth ribs with the right basilar atelectasis and/or contusion and small pleural effusion. Minimal degree of central intrahepatic biliary ductal dilatation. The gallbladder is distended. Right renal cyst. Scattered sigmoid diverticula. Electronically Signed: Zack Yoder MD at 10:56 EDT , Management Discussion w/another healthcare provider: Hospitalist Discharge Plan Dx/Rx/DC Orders Clinical Impression: Multiple rib fractures, COPD (chronic obstructive pulmonary disease), Lung contusion, Fall Disposition Disposition: Acute Care Hospital [facility]
[2024-05-05] MEDS: Ondansetron 4 MG/2 ML Vial IV ×2 (09:07→21:55)
[2024-05-05] MEDS: 0.9% Normal Saline (1000mL) 1,000 ML 1000 ML IV (09:07)
[2024-05-05] MEDS: HYDROmorphone 1 MG/ML Syringe IV ×3 (09:08→16:10)
[2024-05-05] MEDS: Ipratropium/Albuterol Sulfate 3 ML AMPUL.NEB INHALATION (09:20)
[2024-05-05 09:23] LABS: Absolute Lymphocyte Count 1.72 X10^3/uL (0.83-4.51); Absolute Neutrophil Count 9.5 X10^3/uL (2.0-7.7); Basophil# 0.04 X10^3/uL; Basophil% 0.3 % (0-1); Eosinophil# 0.16 X10^3/uL; Eosinophils% 1.3 % (0-5); Hematocrit 44.7 % (40-54); Hemoglobin 15.5 g/dL (13.0-16.5); Lymphocyte # 1.72 X10^3/ul (0.83-4.51); Lymphocyte % 13.9 % (19-41); Mean Corp Hgb Conc 34.7 g/dL (32-36); Mean Corpuscular Hgb 30.3 pg (27.0-32.0); Mean Corpuscular Volume 87.5 fL (80-94); Mean Platelet Vol. 10.3 fl (6.2-12.0); Monocyte# 0.86 X10^3/uL; NRBC Flagged by Analyzer 0 % (0-5); Neutrophil # 9.49 X10^3/uL (2.7-7.7); Platelet Count 208 K/mm3 (150-450); RBC Distribution Width CV 12.2 % (11.6-14.6); RBC Distribution Width SD 39.1 fl (35.1-43.9); Red Blood Count 5.11 M/mm3 (4.6-6.2); White Blood Count 12.3 K/mm3 (4.4-11.0)
[2024-05-05 09:32] LABS: International Normalized Ratio 0.9; Partial Thromboplast Time 23.4 Seconds (24.1-36.2)
[2024-05-05 09:55] LABS: AST(SGOT) 57 U/L (15-37); Alanine Aminotransfer ALT/SGPT 30 U/L (16-61); Alkaline Phosphatase 107 U/L (45-117); Anion Gap 8 (5-15); BUN 21 mg/dL (7-18); BUN/Creat Ratio 19.8 RATIO (10-20); Bilirubin, Direct 0.22 mg/dL (0.00-0.30); Calcium,Total 9.5 mg/dL (8.5-10.1); Chloride 99 mmol/L (98-107); Creatinine, Serum 1.06 mg/dL (0.70-1.30); EST Glomerular Filtration Rate 73 mL/min (>60); Est Glom Filt Rate - Afr Amer 89 mL/min (>60); Estimated Creatinine Clearance 69.66 ml/min; Globulin 3.9 g/dL (2.2-4.2); Glucose 110 mg/dL (74-106); Potassium 4.2 mmol/L (3.5-5.1); Protein, Total 7.9 g/dL (6.4-8.2); Sodium Level 134 mmol/L (136-145); Troponin-I HS 3 pg/mL (3.0-78.0)
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
[2024-05-05 10:13] LABS: Red Blood Cells-Urine 0 SEEN /hpf (0-5)
[2024-05-05 10:15] LABS: Color, Urine Yellow (Yellow); Glucose, Dipstick Normal (Normal); Ketone-Dipstick Negative (Negative); Leukocyte Esterase-Dipstick 25 /ul (Negative); Nitrite-Dipstick Negative (Negative); Occult Blood-Urine Negative /ul (Negative); Protein-Dipstick 15 mg/dl (Negative); Urine Bilirubin Dipstick Negative (Negative); Urine Clarity Clear (Clear); Urine Urobilinogen Normal (Normal)
[2024-05-05 10:22] LABS: Bacteria 1+ /hpf (None Seen); Mucous, Urine 1+ /hpf (<or=2+); Squamous Epithelial Cells - UA 0-5 SEEN /hpf (0-5); White Blood Cells 0-5 SEEN /hpf (0-5)
[2024-05-05] MEDS: Ketorolac 15 MG/ML Vial IV (10:32)
--- NOTE | 2024-05-05 11:33 | HP.PCM.HOS_ITS ---
HPI - General General Date of Admission: 05/05/24 Date of Service: 05/05/24 Chief Complaint: Right flank pain HPI Narrative ELAINE WEI, is a 68 M who presents with right flank pain. Per patient he tripped in his shower hitting his right-sided on his commode. He denied passing out. He elected to present to the emergency department 3 days following the fall with difficulty breathing as well as pain on the right flank. Imaging studies obtained demonstrated multiple rib fractures. Admitted to a monitored bed for pain management [facility] Medical History Diabetes Back pain PTSD (post-traumatic stress disorder) Home Medications ?Medication ?Instructions ?Recorded ?Last Taken ?Type glimepiride 2 mg tablet 1 mg (1/2 x 2 mg) PO DAILY #30 tabs 11/10/20 Unknown Rx ibuprofen 200 mg tablet 200 mg PO Q6H PRN right groin 11/10/20 11/08/20 06:00 Rx abscess/pain ##0 escitalopram oxalate 20 mg tablet 20 mg PO DAILY 05/03/24 Unknown History glipizide 5 mg tablet, extended 5 mg PO DAILY diabetes mellitus 05/03/24 Unknown History release 24 hr lorazepam 1 mg tablet 1 mg PO DAILY anxiety 05/03/24 Unknown History oxycodone-acetaminophen 5 mg-325 1 tab PO Q8H PRN PRN pain 05/03/24 05/04/24 History mg tablet tizanidine 4 mg tablet 4 mg PO Q8H PRN PRN muscle 05/03/24 Unknown History spasticity Allergy/AdvReac Type Severity Reaction Status Date / Time buspirone HCl (From BuSpar) Allergy Other Verified 05/05/24 08:23 duloxetine (From Cymbalta) Allergy Other Verified 05/05/24 08:23 gabapentin Allergy Other Verified 05/05/24 08:23 haloperidol (From Haldol) Allergy Other Verified 05/05/24 08:23 haloperidol lactate (From Allergy Other Verified 05/05/24 08:23 Haldol) hydrocodone bitartrate (From AdvReac Other Verified 05/05/24 08:23 Vicodin) Social History Smoking Status: Current every day smoker tobacco type: cigarettes ROS ROS Narrative GENERAL: denies fever, chills, night sweats, weight loss, anorexia HEENT: denies headache, sinus congestion, or drainage, dysphagia RESPIRATORY: d shortness of breath, dyspnea on exertion CARDIAC: denies chest pain, palpitations, orthopnea, PND GASTROINTESTINAL: denies abdominal pain, nausea, vomiting, melena, GENITOURINARY: denies dysuria, urgency, frequency, heamaturia EXTREMITY: denies swelling MUSCULOSKELETAL: Right flank pain NEUROLOGIC: denies focal numbness, weakness, tingling HEMATOLOGIC: denies easy bruising and/or hemorrhage INTEGUMENT: denies rashes PSYCHIATRIC: denies suicidal or homicidal ideation Vital Signs Vital Signs Vital Signs: 05/05/24 08:23 05/05/24 08:55 05/05/24 09:20 Temperature 98 F Temperature Source Temporal Pulse Rate 97 78 Respiratory Rate 22 H 20 H Respiratory Effort Short of Breath Respiratory Pattern Tachypnea Blood Pressure 131/87 H Blood Pressure Mean 101 Pulse Ox 95 Oxygen Delivery Method Room Air 05/05/24 09:28 05/05/24 10:00 05/05/24 11:00 Temperature Temperature Source Pulse Rate 85 84 88 Respiratory Rate 28 H 22 H 22 H Respiratory Effort Respiratory Pattern Blood Pressure 144/89 H 140/84 H 168/93 H Blood Pressure Mean 107 102 118 Pulse Ox 98 98 96 Oxygen Delivery Method Room Air Room Air Room Air Weight Weight: 84.595 kg Body Mass Index (BMI) 27.6 Physical Exam Narrative GENERAL: cooperative HEENT: Atraumatic; normocephalic EYES; Anicteric, Normal Conjunctiva NECK; supple, normal thyroid, RESPIRATORY: Diminished to auscultation with bilateral wheezing CARDIOVASCULAR: Regular S1 S2, GI: soft, normoactive bowel sounds, : No Renal angle tenderness; EXTREMITIES: No edema, no clubbing, MUSCULOSKELETAL: no muscle wasting NEURO: Awake; no lateralizing signs. SKIN: No Rash PSYCH; Flat affect Results Lab / Micro Data 05/05/24 09:13 05/05/24 09:13 Labs: Laboratory Results - last 24 hr 05/05/24 09:13: WBC 12.3 H, RBC 5.11, Hgb 15.5, Hct 44.7, MCV 87.5, MCH 30.3, MCHC 34.7, RDW Std Deviation 39.1, RDW Coeff of Shreya 12.2, Plt Count 208, MPV 10.3, Immature Gran % (Auto) 0.500, Neut % (Auto) 77.0 H, Lymph % (Auto) 13.9 L, [place] % (Auto) 7.0, Eos % (Auto) 1.3, Baso % (Auto) 0.3, Absolute Neuts (auto) 9.5 H, Absolute Lymphs (auto) 1.72, Nucleated RBC % 0, PT 12.0, INR 0.9, APTT 23.4 L, Sodium 134 L, Potassium 4.2, Chloride 99, Carbon Dioxide 27.0, Anion Gap 8, BUN 21 H, Creatinine 1.06, Estim Creat Clear Calc 69.66, Est GFR (MDRD) Af Amer 89, Est GFR (MDRD) Non-Af 73, BUN/Creatinine Ratio 19.8, Glucose 110 H, Calcium 9.5, Total Bilirubin 0.90, Direct Bilirubin 0.22, AST 57 H, ALT 30, Alkaline Phosphatase 107, Troponin I High Sens 3, Total Protein 7.9, Albumin 4.0, Globulin 3.9 05/05/24 10:10: Urine Color Yellow, Urine Clarity Clear, Urine pH 6.0, Ur Specific [place] 1.020, Urine Protein 15 H, Urine Glucose (UA) Normal, Urine Ketones Negative, Urine Occult Blood Negative, Urine Nitrite Negative, Urine Bilirubin Negative, Urine Urobilinogen Normal, Ur Leukocyte Esterase 25 H, Urine RBC 0 SEEN, Urine WBC 0-5 SEEN, Ur Squamous Epith Cells 0-5 SEEN, Urine Bacteria 1+, Urine Mucus 1+ Imaging Radiology Impression Brain CT 05/05/24 10:10 IMPRESSION: Normal unenhanced CT scan of the brain. Small polyp or retention cyst at the base of the right maxillary sinus. Electronically Signed: Zack Yoder MD at 10:39 EDT , Cervical Spine CT 05/05/24 10:10 IMPRESSION: Multilevel degenerative changes, as described above. Electronically Signed: Zack Yoder MD at 10:58 EDT , Chest/Abdomen/Pelvis CT 05/05/24 10:10 IMPRESSION: Nondisplaced fractures of the posterior aspect of the right eighth and ninth ribs with the right basilar atelectasis and/or contusion and small pleural effusion. Minimal degree of central intrahepatic biliary ductal dilatation. The gallbladder is distended. Right renal cyst. Scattered sigmoid diverticula. Electronically Signed: Zack Yoder MD at 10:56 EDT , Assessment & Plan Assessment/Plan (1) Hemothorax on right: (2) Fall: (3) Lung contusion: PLAN: Plan Patient is a 68-year-old gentleman presented with right flank pain following a fall 1. Fall with right flank pain ? Imaging studies obtained on admission Nondisplaced fractures of the posterior aspect of the right eighth and ninth ribs with the right basilar atelectasis and/or contusion and small pleural effusion. Admitted to regular nursing floor for pain management. Ordered incentive spirometry to prevent atelectasis 2. Right-sided hemothorax ? Following patient rib fractures will monitor 3. COPD with acute exacerbation - Patient started on bronchodilator treatment, systemic steroid as well as antibiotic therapy. Patient placed on oxygen titrated to keep saturation greater than 90. 4. Legal blindness ? Supportive care 5. Hypertension - Blood pressure controlled, home medications continued with dose adjustment as needed 6. Tobacco dependence - Counseled on cessation, offered nicotine patch for tobacco cravings 7. Hypertriglyceridemia ? Patient is on statin therapy added fibrates 8. Diabetes mellitus type II -patient's oral hypoglycemics held. Placed on long acting insulin, Accu-Cheks a.c. and at bedtime and covered with sliding scale insulin 9. Depression with anxiety ? Supportive care 10. DVT prophylaxis ? Bilateral SCDs only given patient hemothorax Time spent in the patient's overall evaluation,decision-making process, review of diagnostic data, adjustment of management, discussion with other providers, nursing nursing and ancillary staff involved in patient's care documentation, 55 Minutes Advance planning; did discuss with the patient and family regarding advanced directives as well as CODE STATUS. Did explain the various scenarios involved ( FULL CODE, DNR CCA, DNR CCA with no intubation, and DNR CC and what each meant) patient elected to remain full code with CPR and intubation if needed. Order was placed. Time spent on discussion 16 minutes. Charges/Coding Multi Select Codes Visit Charges Visit Charges: 00996 Init Hosp L2 Hospitalists' Procedures Procedures: 23355 Advncd Care Plan 30 Min
--- NOTE | 2024-05-05 11:38 | NURSING ---
MED SURG KITTOE MULTIPLE RIB FRACTURES, PULMONARY CONTUSION
[2024-05-05] MEDS: LORazepam 2 MG/ML Syringe 1 MG IV (11:44)
[2024-05-05] MEDS: oxyCODONE 5 MG Tablet 10 MG PO ×3 (12:41→22:03)
[2024-05-05] MEDS: Acetaminophen 500 MG Tablet 1000 MG PO ×2 (12:41→22:03)
[2024-05-05] MEDS: 0.9% Saline Lock 10 ML Syringe IV ×2 (16:10→21:55)
[2024-05-05 16:31] LABS: Bedside Glucose 124 mg/dL (74-106)
[2024-05-05 22:32] LABS: Bedside Glucose 126 mg/dL (74-106)
[2024-05-06 03:50] VITALS: O2SAT 84
[2024-05-06 04:00] VITALS: BP 126/74; PULSE 88; RESP 18; TEMP 36.9; O2SAT 94
[2024-05-06] MEDS: Ondansetron 4 MG/2 ML Vial IV ×3 (04:20→22:09)
[2024-05-06] MEDS: 0.9% Saline Lock 10 ML Syringe IV ×3 (04:20→22:09)
[2024-05-06] MEDS: HYDROmorphone 1 MG/ML Syringe IV ×3 (04:22→22:17)
[2024-05-06 05:15] VITALS: BMI 28.2
[2024-05-06 06:41] VITALS: O2SAT 93
[2024-05-06 06:49] LABS: Bedside Glucose 123 mg/dL (74-106)
[2024-05-06 07:01] LABS: Absolute Lymphocyte Count 1.08 X10^3/uL (0.83-4.51); Absolute Neutrophil Count 8.1 X10^3/uL (2.0-7.7); Basophil# 0.03 X10^3/uL; Basophil% 0.3 % (0-1); Eosinophil# 0.15 X10^3/uL; Eosinophils% 1.5 % (0-5); Hematocrit 37.5 % (40-54); Hemoglobin 13.1 g/dL (13.0-16.5); Lymphocyte # 1.08 X10^3/ul (0.83-4.51); Lymphocyte % 10.8 % (19-41); Mean Corp Hgb Conc 34.9 g/dL (32-36); Mean Corpuscular Hgb 30.4 pg (27.0-32.0); Mean Platelet Vol. 9.7 fl (6.2-12.0); Monocyte# 0.66 X10^3/uL; Monocyte% 6.6 % (0-10); NRBC Flagged by Analyzer 0 % (0-5); Neutrophil # 8.05 X10^3/uL (2.7-7.7); Neutrophil % 80.2 % (47-70); Platelet Count 177 K/mm3 (150-450); RBC Distribution Width CV 12.1 % (11.6-14.6); Red Blood Count 4.31 M/mm3 (4.6-6.2)
[2024-05-06] MEDS: Acetaminophen 500 MG Tablet 1000 MG PO ×3 (07:25→22:09)
[2024-05-06] MEDS: oxyCODONE 5 MG Tablet 10 MG PO ×2 (07:25→14:45)
[2024-05-06 07:26] LABS: Anion Gap 4 (5-15); BUN 20 mg/dL (7-18); BUN/Creat Ratio 24.2 RATIO (10-20); Calcium,Total 8.5 mg/dL (8.5-10.1); Chloride 104 mmol/L (98-107); Creatinine, Serum 0.83 mg/dL (0.70-1.30); EST Glomerular Filtration Rate 98 mL/min (>60); Est Glom Filt Rate - Afr Amer 118 mL/min (>60); Estimated Creatinine Clearance 88.92 ml/min; Glucose 126 mg/dL (74-106); Phosphorus 3.6 mg/dL (2.5-4.9); Potassium 3.9 mmol/L (3.5-5.1); Sodium Level 135 mmol/L (136-145)
--- NOTE | 2024-05-06 07:49 | PCM.PN.HOSP ---
Reason for Visit Reason for Visit: Diagnoses Hemothorax (05/05/24) Contusion of lung, unspecified, initial encounter (05/05/24) Unspecified fall, initial encounter (05/05/24) Subjective Subjective Patient seen complains of significant pain in the right flank. Objective Data Objective Data Vital Signs: Vital Signs Temp Pulse Resp BP Pulse Ox O2 Del Method O2 Flow Rate 98.5 F 88 18 126/74 H 94 Nasal Cannula 2 05/06/24 04:00 05/06/24 04:00 05/06/24 04:00 05/06/24 04:00 05/06/24 04:00 05/06/24 04:00 05/06/24 04:00 Oxygen Flow Rate (L/min) 2 Oxygen Delivery Method Nasal Cannula Weight: 84.5 kg Body Mass Index (BMI) 28.2 Intake & Output: Intake and Output for Last 24 Hours 05/04/24 05/05/24 05/06/24 23:59 23:59 23:59 Intake Total 1500 / 1920 642 / 642 Balance 1500 / 1920 642 / 642 Lab / Micro Data 05/06/24 06:48 05/06/24 06:48 Labs: Laboratory Results - last 24 hr 05/05/24 09:13: WBC 12.3 H, RBC 5.11, Hgb 15.5, Hct 44.7, MCV 87.5, MCH 30.3, MCHC 34.7, RDW Std Deviation 39.1, RDW Coeff of Shreya 12.2, Plt Count 208, MPV 10.3, Immature Gran % (Auto) 0.500, Neut % (Auto) 77.0 H, Lymph % (Auto) 13.9 L, [place] % (Auto) 7.0, Eos % (Auto) 1.3, Baso % (Auto) 0.3, Absolute Neuts (auto) 9.5 H, Absolute Lymphs (auto) 1.72, Nucleated RBC % 0, PT 12.0, INR 0.9, APTT 23.4 L, Sodium 134 L, Potassium 4.2, Chloride 99, Carbon Dioxide 27.0, Anion Gap 8, BUN 21 H, Creatinine 1.06, Estim Creat Clear Calc 69.66, Est GFR (MDRD) Af Amer 89, Est GFR (MDRD) Non-Af 73, BUN/Creatinine Ratio 19.8, Glucose 110 H, Calcium 9.5, Total Bilirubin 0.90, Direct Bilirubin 0.22, AST 57 H, ALT 30, Alkaline Phosphatase 107, Troponin I High Sens 3, Total Protein 7.9, Albumin 4.0, Globulin 3.9 05/05/24 10:10: Urine Color Yellow, Urine Clarity Clear, Urine pH 6.0, Ur Specific [place] 1.020, Urine Protein 15 H, Urine Glucose (UA) Normal, Urine Ketones Negative, Urine Occult Blood Negative, Urine Nitrite Negative, Urine Bilirubin Negative, Urine Urobilinogen Normal, Ur Leukocyte Esterase 25 H, Urine RBC 0 SEEN, Urine WBC 0-5 SEEN, Ur Squamous Epith Cells 0-5 SEEN, Urine Bacteria 1+, Urine Mucus 1+ 05/05/24 16:09: POC Glucose 124 H 05/05/24 22:02: POC Glucose 126 H 05/06/24 06:30: POC Glucose 123 H 05/06/24 06:48: WBC 10.0, RBC 4.31 L, Hgb 13.1, Hct 37.5 L, MCV 87.0, MCH 30.4, MCHC 34.9, RDW Std Deviation 39.0, RDW Coeff of Shreya 12.1, Plt Count 177, MPV 9.7, Immature Gran % (Auto) 0.600, Neut % (Auto) 80.2 H, Lymph % (Auto) 10.8 L, [place] % (Auto) 6.6, Eos % (Auto) 1.5, Baso % (Auto) 0.3, Absolute Neuts (auto) 8.1 H, Absolute Lymphs (auto) 1.08, Nucleated RBC % 0, Sodium 135 L, Potassium 3.9, Chloride 104, Carbon Dioxide 27.0, Anion Gap 4 L, BUN 20 H, Creatinine 0.83, Estim Creat Clear Calc 88.92, Est GFR (MDRD) Af Amer 118, Est GFR (MDRD) Non-Af 98, BUN/Creatinine Ratio 24.2 H, Glucose 126 H, Calcium 8.5, Phosphorus 3.6, Magnesium 2.0 Radiography Diagnostic Testing: Radiology Impression Brain CT 05/05/24 10:10 IMPRESSION: Normal unenhanced CT scan of the brain. Small polyp or retention cyst at the base of the right maxillary sinus. Electronically Signed: Zakc Yoder MD at 10:39 EDT , Cervical Spine CT 05/05/24 10:10 IMPRESSION: Multilevel degenerative changes, as described above. Electronically Signed: Zack Yoder MD at 10:58 EDT , Chest/Abdomen/Pelvis CT 05/05/24 10:10 IMPRESSION: Nondisplaced fractures of the posterior aspect of the right eighth and ninth ribs with the right basilar atelectasis and/or contusion and small pleural effusion. Minimal degree of central intrahepatic biliary ductal dilatation. The gallbladder is distended. Right renal cyst. Scattered sigmoid diverticula. Electronically Signed: Zack Yoder MD at 10:56 EDT , Physical Exam Narrative GENERAL: cooperative HEENT: Atraumatic; normocephalic EYES; Anicteric, Normal Conjunctiva NECK; supple, normal thyroid, RESPIRATORY: Diminished to auscultation with bilateral wheezing CARDIOVASCULAR: Regular S1 S2, GI: soft, normoactive bowel sounds, : No Renal angle tenderness; EXTREMITIES: No edema, no clubbing, MUSCULOSKELETAL: no muscle wasting NEURO: Awake; no lateralizing signs. SKIN: No Rash PSYCH; Flat affect Assessment & Plan Assessment/Plan (1) Hemothorax on right: (2) Fall: (3) Lung contusion: PLAN: Plan Patient is a 68-year-old gentleman presented with right flank pain following a fall 1. Fall with right flank pain ? Imaging studies obtained on admission Nondisplaced fractures of the posterior aspect of the right eighth and ninth ribs with the right basilar atelectasis and/or contusion and small pleural effusion. Admitted to regular nursing floor for pain management. Ordered incentive spirometry to prevent atelectasis -?723/24; seen still complains of significant left flank pain will continue with current pain management as well as incentive spirometry 2. Right-sided hemothorax ? Following patient rib fractures will monitor 3. COPD with acute exacerbation - Patient started on bronchodilator treatment, systemic steroid as well as antibiotic therapy. Patient placed on oxygen titrated to keep saturation greater than 90. 4. Legal blindness ? Supportive care 5. Hypertension - Blood pressure controlled, home medications continued with dose adjustment as needed 6. Tobacco dependence - Counseled on cessation, offered nicotine patch for tobacco cravings 7. Hypertriglyceridemia ? Patient is on statin therapy added fibrates 8. Diabetes mellitus type II -patient's oral hypoglycemics held. Placed on long acting insulin, Accu-Cheks a.c. and at bedtime and covered with sliding scale insulin 9. Depression with anxiety ? Supportive care 10. DVT prophylaxis ? Bilateral SCDs only given patient hemothorax 11. Physical deconditioning - Requested for PT OT eval and social director to assist with discharge planning Time spent in the patient's overall evaluation,decision-making process, review of diagnostic data, adjustment of management, discussion with other providers, nursing nursing and ancillary staff involved in patient's care documentation, 36 minutes Charges/Coding Visit Charges Inpatient E&M: 58091 Subs Hosp L2
[2024-05-06 08:00] VITALS: BP 112/74; PULSE 93; RESP 16; TEMP 36.4; O2SAT 94
--- NOTE | 2024-05-06 11:59 | CASEMGMT ---
Met with patient to complete AGUILA form. AGUILA form explained to patient who voiced understanding and signed form. Original form placed in pt?s chart and copy provided to patient. Angelia Carmona, Discharge Planning Asst
[2024-05-06 12:06] LABS: Bedside Glucose 119 mg/dL (74-106)
--- NOTE | 2024-05-06 12:46 | CASEMGMT ---
Addendum entered by Alesia Parish 05/06/24 15:59: Social Work- SW verified that pt is okay with no smoking at [facility]. Pt reports that he does not smoke all day every day and is more of a social smoker. Pt reports that he does not like patches, as it is too much nicotine for him and he gets jittery. Pt reports he has no issues with no smoking while at rehab. SW also asked pt to verify that he did not lose vision until after age 21; pt reports he was late 40's when he lost his vision d/t glaucoma. [facility] advised. [facility] started. KAYLEIGH Bryan Original Note: Social Work- A list of SNF providers including quality and resource use data and consistent with the patient?s preferred geographic region, medical needs, and insurance network were provided from the [facility] Guide. Pt preference is [facility] and [facility] as second choice. GUANAKITO advised that referral can be completed. [facility] remains available to follow. KAYLEIGH Bryan
--- NOTE | 2024-05-06 12:58 | CASEMGMT ---
Discharge Planning [facility] Angelia Carmona DC Planning Asst.
[2024-05-06 14:00] VITALS: BP 123/74; PULSE 83; RESP 15; TEMP 36.7; O2SAT 95
[2024-05-06 16:59] LABS: Bedside Glucose 125 mg/dL (74-106)
[2024-05-06 20:00] VITALS: BP 144/88; PULSE 95; RESP 16; TEMP 37.4; O2SAT 95
[2024-05-07 01:06] VITALS: BMI 28.2
[2024-05-07 02:00] VITALS: BP 149/116; PULSE 82; RESP 16; TEMP 36.4; O2SAT 94
[2024-05-07] MEDS: 0.9% Saline Lock 10 ML Syringe IV ×2 (04:10→11:09)
[2024-05-07] MEDS: Ondansetron 4 MG/2 ML Vial IV (04:10)
[2024-05-07] MEDS: HYDROmorphone 1 MG/ML Syringe IV ×2 (04:10→11:09)
[2024-05-07] MEDS: oxyCODONE 5 MG Tablet 10 MG PO ×5 (06:32→22:12)
[2024-05-07 06:41] LABS: Absolute Lymphocyte Count 1.49 X10^3/uL (0.83-4.51); Absolute Neutrophil Count 7.2 X10^3/uL (2.0-7.7); Basophil# 0.03 X10^3/uL; Basophil% 0.3 % (0-1); Eosinophil# 0.15 X10^3/uL; Eosinophils% 1.6 % (0-5); Hematocrit 41.2 % (40-54); Lymphocyte # 1.49 X10^3/ul (0.83-4.51); Lymphocyte % 15.4 % (19-41); Mean Corpuscular Volume 88.4 fL (80-94); Mean Platelet Vol. 9.9 fl (6.2-12.0); Monocyte# 0.77 X10^3/uL; NRBC Flagged by Analyzer 0 % (0-5); Neutrophil # 7.18 X10^3/uL (2.7-7.7); Neutrophil % 74.2 % (47-70); Platelet Count 214 K/mm3 (150-450); RBC Distribution Width CV 12.3 % (11.6-14.6); Red Blood Count 4.66 M/mm3 (4.6-6.2); White Blood Count 9.7 K/mm3 (4.4-11.0)
[2024-05-07 06:51] LABS: Bedside Glucose 102 mg/dL (74-106)
[2024-05-07 07:05] LABS: Anion Gap 5 (5-15); BUN 28 mg/dL (7-18); BUN/Creat Ratio 30.5 RATIO (10-20); Calcium,Total 9.4 mg/dL (8.5-10.1); Chloride 103 mmol/L (98-107); Creatinine, Serum 0.92 mg/dL (0.70-1.30); EST Glomerular Filtration Rate 87 mL/min (>60); Est Glom Filt Rate - Afr Amer 105 mL/min (>60); Estimated Creatinine Clearance 80.18 ml/min; Glucose 121 mg/dL (74-106); Sodium Level 137 mmol/L (136-145)
--- NOTE | 2024-05-07 07:47 | PCM.PN.HOSP ---
Reason for Visit Reason for Visit: Diagnoses Hemothorax (05/06/24) Contusion of lung, unspecified, initial encounter (05/06/24) Unspecified fall, initial encounter (05/06/24) Subjective Subjective Patient still complains of flank pain. Awaiting insurance precertification prior to transfer to care home facility Objective Data Objective Data Vital Signs: Vital Signs Temp Pulse Resp BP Pulse Ox O2 Del Method O2 Flow Rate 97.6 F L 82 16 149/116 H 94 Room Air 2 05/07/24 02:00 05/07/24 02:00 05/07/24 02:00 05/07/24 02:00 05/07/24 02:00 05/07/24 02:00 05/06/24 14:18 Oxygen Flow Rate (L/min) 2 Oxygen Delivery Method Room Air Weight: 84.4 kg Body Mass Index (BMI) 28.2 Intake & Output: Intake and Output for Last 24 Hours 05/05/24 05/06/24 05/07/24 23:59 23:59 23:59 Intake Total 1500 / 1920 642 / 892 450 / 450 Balance 1500 / 1920 642 / 892 450 / 450 Lab / Micro Data 05/07/24 06:24 05/07/24 06:24 Labs: Laboratory Results - last 24 hr 05/06/24 11:45: POC Glucose 119 H 05/06/24 16:39: POC Glucose 125 H 05/07/24 06:24: WBC 9.7, RBC 4.66, Hgb 14.0, Hct 41.2, MCV 88.4, MCH 30.0, MCHC 34.0, RDW Std Deviation 40.0, RDW Coeff of Shreya 12.3, Plt Count 214, MPV 9.9, Immature Gran % (Auto) 0.500, Neut % (Auto) 74.2 H, Lymph % (Auto) 15.4 L, [place] % (Auto) 8.0, Eos % (Auto) 1.6, Baso % (Auto) 0.3, Absolute Neuts (auto) 7.2, Absolute Lymphs (auto) 1.49, Nucleated RBC % 0, Sodium 137, Potassium 4.0, Chloride 103, Carbon Dioxide 29.0, Anion Gap 5, BUN 28 H, Creatinine 0.92, Estim Creat Clear Calc 80.18, Est GFR (MDRD) Af Amer 105, Est GFR (MDRD) Non-Af 87, BUN/Creatinine Ratio 30.5 H, Glucose 121 H, Calcium 9.4 05/07/24 06:27: POC Glucose 102 Physical Exam Narrative GENERAL: cooperative HEENT: Atraumatic; normocephalic EYES; Anicteric, Normal Conjunctiva NECK; supple, normal thyroid, RESPIRATORY: Diminished to auscultation with bilateral wheezing CARDIOVASCULAR: Regular S1 S2, GI: soft, normoactive bowel sounds, : No Renal angle tenderness; EXTREMITIES: No edema, no clubbing, MUSCULOSKELETAL: no muscle wasting NEURO: Awake; no lateralizing signs. SKIN: No Rash PSYCH; Flat affect Assessment & Plan Assessment/Plan (1) Hemothorax on right: (2) Fall: (3) Lung contusion: PLAN: Plan Patient is a 68-year-old gentleman presented with right flank pain following a fall 1. Fall with right flank pain ? Imaging studies obtained on admission Nondisplaced fractures of the posterior aspect of the right eighth and ninth ribs with the right basilar atelectasis and/or contusion and small pleural effusion. Admitted to regular nursing floor for pain management. Ordered incentive spirometry to prevent atelectasis -?05/06/24; seen still complains of significant left flank pain will continue with current pain management as well as incentive spirometry ? 05/07/2024; pain control not optimal adjustment made to patient's pain regimen 2. Right-sided hemothorax ? Following patient rib fractures will monitor 3. COPD with acute exacerbation - Patient started on bronchodilator treatment, systemic steroid as well as antibiotic therapy. Patient placed on oxygen titrated to keep saturation greater than 90. 4. Legal blindness ? Supportive care 5. Hypertension - Blood pressure controlled, home medications continued with dose adjustment as needed 6. Tobacco dependence - Counseled on cessation, offered nicotine patch for tobacco cravings 7. Hypertriglyceridemia ? Patient is on statin therapy added fibrates 8. Diabetes mellitus type II -patient's oral hypoglycemics held. Placed on long acting insulin, Accu-Cheks a.c. and at bedtime and covered with sliding scale insulin 9. Depression with anxiety ? Supportive care 10. DVT prophylaxis ? Bilateral SCDs only given patient hemothorax 11. Physical deconditioning - Requested for PT OT eval and social worker clinical to assist with discharge planning Time spent in the patient's overall evaluation,decision-making process, review of diagnostic data, adjustment of management, discussion with other providers, nursing nursing and ancillary staff involved in patient's care documentation, 36 minutes Charges/Coding Visit Charges Inpatient E&M: 70970 Subs Hosp L2
[2024-05-07 08:06] VITALS: BP 109/76; PULSE 94; RESP 18; TEMP 36.6; O2SAT 94
[2024-05-07 08:09] VITALS: O2SAT 94
[2024-05-07] MEDS: guaiFENesin 10 ML UDC (200MG/10ML) 20 ML PO ×3 (08:13→22:21)
--- NOTE | 2024-05-07 08:39 | CASEMGMT ---
Social Work [facility] did accept pt and will start precert. SW spoke w/pt and pt's brother Martín in the room. SW let them both know that pt was accepted at [facility] and we are now waiting for insurance authorization. Both state understanding. Pt would like his brother to take him to [facility] when he is ready for discharge, pt's brother also agreeable to this. SW let them know this should be fine. SW did also explain that there are no guarantees of insurance authorization. Pt and pt's brother state understanding. SW will continue to follow. ZACHARY Coleman
[2024-05-07] MEDS: cycloBENZAPRine HCl 5 MG TABLET PO ×2 (09:43→18:03)
[2024-05-07] MEDS: Ondansetron ODT 4 MG Tablet PO ×2 (11:09→18:02)
[2024-05-07 11:32] LABS: Bedside Glucose 129 mg/dL (74-106)
[2024-05-07] MEDS: Acetaminophen 500 MG Tablet 1000 MG PO ×2 (14:23→22:11)
[2024-05-07 14:26] VITALS: BP 105/61; PULSE 98; RESP 18; TEMP 36.5; O2SAT 96
[2024-05-07 21:45] VITALS: BP 126/84; PULSE 84; RESP 16; TEMP 36.1; O2SAT 97
[2024-05-08 04:13] VITALS: BP 117/80; PULSE 90; RESP 16; TEMP 36.6; O2SAT 95
[2024-05-08] MEDS: oxyCODONE 5 MG Tablet 10 MG PO ×2 (04:15→08:26)
[2024-05-08] MEDS: Acetaminophen 500 MG Tablet 1000 MG PO (05:53)
[2024-05-08 06:00] VITALS: BMI 28.2
[2024-05-08 07:31] LABS: Absolute Lymphocyte Count 1.94 X10^3/uL (0.83-4.51); Basophil# 0.02 X10^3/uL; Basophil% 0.2 % (0-1); Eosinophil# 0.32 X10^3/uL; Eosinophils% 3.1 % (0-5); Hematocrit 43.2 % (40-54); Hemoglobin 14.4 g/dL (13.0-16.5); Lymphocyte # 1.94 X10^3/ul (0.83-4.51); Lymphocyte % 19.1 % (19-41); Mean Corp Hgb Conc 33.3 g/dL (32-36); Mean Corpuscular Hgb 29.6 pg (27.0-32.0); Mean Corpuscular Volume 88.9 fL (80-94); Mean Platelet Vol. 10.1 fl (6.2-12.0); Monocyte# 0.84 X10^3/uL; Monocyte% 8.3 % (0-10); NRBC Flagged by Analyzer 0 % (0-5); Neutrophil # 7.01 X10^3/uL (2.7-7.7); Neutrophil % 68.8 % (47-70); Platelet Count 226 K/mm3 (150-450); RBC Distribution Width CV 12.4 % (11.6-14.6); RBC Distribution Width SD 40.6 fl (35.1-43.9); Red Blood Count 4.86 M/mm3 (4.6-6.2); White Blood Count 10.2 K/mm3 (4.4-11.0)
[2024-05-08 07:51] LABS: Bedside Glucose 170 mg/dL (74-106)
--- NOTE | 2024-05-08 08:02 | PCM.DC.SUM ---
Providers Date of Admission: 05/06/24 Date of Discharge: 05/08/24 Primary Care Physician: Dr. Shari Faustin MD Reason For Visit: FALL Diagnosis Discharge Diagnosis (1) Hemothorax on right: Status: Acute Code(s): J94.2 - Hemothorax (2) Fall: Status: Acute Code(s): W19.XXXA - Unspecified fall, initial encounter (3) Lung contusion: Status: Acute Code(s): S27.329A - Contusion of lung, unspecified, initial encounter Plan Patient is a 68-year-old gentleman presented with right flank pain following a fall 1. Fall with right flank pain ? Imaging studies obtained on admission Nondisplaced fractures of the posterior aspect of the right eighth and ninth ribs with the right basilar atelectasis and/or contusion and small pleural effusion. Admitted to regular nursing floor for pain management. Ordered incentive spirometry to prevent atelectasis -?05/06/24; seen still complains of significant left flank pain will continue with current pain management as well as incentive spirometry ? 05/07/2024; pain control not optimal adjustment made to patient's pain regimen 05/08/2024; patient seen pain control improved. Patient did request to be discharged home. 2. Right-sided hemothorax ? Following patient rib fractures will monitor 3. COPD with acute exacerbation - Patient started on bronchodilator treatment, systemic steroid as well as antibiotic therapy. Patient placed on oxygen titrated to keep saturation greater than 90. 4. Legal blindness ? Supportive care 5. Hypertension - Blood pressure controlled, home medications continued with dose adjustment as needed 6. Tobacco dependence - Counseled on cessation, offered nicotine patch for tobacco cravings 7. Hypertriglyceridemia ? Patient is on statin therapy added fibrates 8. Diabetes mellitus type II -patient's oral hypoglycemics held. Placed on long acting insulin, Accu-Cheks a.c. and at bedtime and covered with sliding scale insulin 9. Depression with anxiety ? Supportive care 10. DVT prophylaxis ? Bilateral SCDs only given patient hemothorax 11. Physical deconditioning - Requested for PT OT eval and psychotherapist social worker to assist with discharge planning Time spent in the patient's overall evaluation,decision-making process, review of diagnostic data, adjustment of management, discussion with other providers, nursing nursing and ancillary staff involved in patient's care documentation, 36 minutes Medications at Discharge Home Medications glimepiride 2 mg tablet 1 mg (1/2 x 2 mg) PO DAILY #30 tabs 11/10/20 ibuprofen 200 mg tablet 200 mg PO Q6H PRN right groin abscess/pain ##0 11/10/20 escitalopram oxalate 20 mg tablet 20 mg PO DAILY 05/03/24 glipizide 5 mg tablet, extended release 24 hr 5 mg PO DAILY diabetes mellitus 05/03/24 tizanidine 4 mg tablet 4 mg PO Q8H PRN PRN muscle spasticity 05/03/24 acetaminophen 500 mg tablet 1,000 mg (2 x 500 mg) PO Q8 #0 tabs 05/08/24 lidocaine 5 % topical patch (Lidoderm) 2 patch topical DAILY #30 ea 05/08/24 oxycodone-acetaminophen 5 mg-325 mg tablet 1 tab PO Q4H PRN pain 5 days #20 tabs 05/08/24 sennosides 8.6 mg-docusate sodium 50 mg tablet (Stimulant Laxative Plus) 2 tab PO BID PRN PRN Constipation #30 tabs 05/08/24 Physical Exam Narrative GENERAL: cooperative HEENT: Atraumatic; normocephalic EYES; Anicteric, Normal Conjunctiva NECK; supple, normal thyroid, RESPIRATORY: Diminished to auscultation with bilateral wheezing CARDIOVASCULAR: Regular S1 S2, GI: soft, normoactive bowel sounds, : No Renal angle tenderness; EXTREMITIES: No edema, no clubbing, MUSCULOSKELETAL: no muscle wasting NEURO: Awake; no lateralizing signs. SKIN: No Rash PSYCH; Flat affect Weight / BMI Weight Weight: 84.4 kg Body Mass Index (BMI) 28.2 ABG / Lab / Microbiology Data 05/08/24 07:10 05/07/24 06:24 Laboratory: Laboratory Results - last 24 hr 05/07/24 11:07: POC Glucose 129 H 05/08/24 07:10: WBC 10.2, RBC 4.86, Hgb 14.4, Hct 43.2, MCV 88.9, MCH 29.6, MCHC 33.3, RDW Std Deviation 40.6, RDW Coeff of Shreya 12.4, Plt Count 226, MPV 10.1, Immature Gran % (Auto) 0.500, Neut % (Auto) 68.8, Lymph % (Auto) 19.1, [place] % (Auto) 8.3, Eos % (Auto) 3.1, Baso % (Auto) 0.2, Absolute Neuts (auto) 7.0, Absolute Lymphs (auto) 1.94, Nucleated RBC % 0 05/08/24 07:33: POC Glucose 170 H D/C Instructions Discharge Diet: 1800 Calorie Control Diet Discharge Activity: Return to Normal Activity Call your doctor if you observe: Fever of 101 or Higher, Shortness of breath, Fainting spells and Chest pain Meaningful Use Info Meaningful Use Meaningful Use Diagnoses (Choose all that apply): None applicable Ischemic Stroke Statin Dosing Therapy Reference: STATIN DOSE THERAPY REFERENCE: * Patients > 75 years receive moderate or high dose statin therapy. * Patients 75 years or YOUNGER should receive HIGH intensity statin dose unless contraindicated. You will be required to document reason for non-treatment if statin daily dose does not meet guidelines. HIGH DOSE STATIN THERAPY DAILY Atorvastatin > than or = to 40 mg Rosuvastatin > than or = to 20 mg Amlodipine + Atorvastatin > than or = to 2.5/40 mg Ezetimibe + Simvastatin 10/80 mg Simvastatin 80mg Discharge Plan Admission Admit Date/Time: 05/06/24 13:22 Attending Provider: Vinicio Brennan Primary Care Provider: Shari Faustin Discharge Orders/Prescriptions Prescriptions: New acetaminophen 500 mg Tablet 1,000 mg PO Q8 Qty: 0 0RF sennosides-docusate sodium [Stimulant Laxative Plus] 8.6-50 mg Tablet 2 tab PO BID PRN PRN (Reason: Constipation) Qty: 30 0RF lidocaine [Lidoderm] 5 % adhesive patch,medicated 2 patch topical DAILY Qty: 30 0RF Rx Instructions: leave on most painful area for up to 12 hrs Continued glimepiride 2 MG tablet 1 mg PO DAILY Qty: 30 0RF ibuprofen 200 MG tablet 200 mg PO Q6H PRN (Reason: right groin abscess/pain) Qty: 0 0RF tizanidine 4 mg tablet 4 mg PO Q8H PRN PRN (Reason: muscle spasticity) glipizide 5 mg tablet extended release 24hr 5 mg PO DAILY escitalopram oxalate 20 mg tablet 20 mg PO DAILY Changed oxycodone-acetaminophen 5-325 mg tablet 1 tab PO Q4H PRN (Reason: pain) 5 Days Qty: 20 0RF Discontinued lorazepam 1 mg tablet 1 mg PO DAILY Referrals / Follow Up: Shari Faustin MD [Primary Care Provider] - Within 1 Week Disposition Disposition (needs filled in before D/C Order can be placed): Home, Self Care Charges/Coding Visit Charges Inpatient E&M: 03962 Disch Hosp >30min
[2024-05-08 08:11] LABS: Anion Gap 7 (5-15); BUN 35 mg/dL (7-18); Calcium,Total 9.2 mg/dL (8.5-10.1); Chloride 103 mmol/L (98-107); Creatinine, Serum 1.06 mg/dL (0.70-1.30); EST Glomerular Filtration Rate 73 mL/min (>60); Est Glom Filt Rate - Afr Amer 89 mL/min (>60); Estimated Creatinine Clearance 69.59 ml/min; Glucose 159 mg/dL (74-106); Potassium 3.8 mmol/L (3.5-5.1); Sodium Level 137 mmol/L (136-145)
[2024-05-08 08:25] VITALS: BP 102/66; PULSE 88; RESP 18; TEMP 36.5; O2SAT 98
[2024-05-08] MEDS: cycloBENZAPRine HCl 5 MG TABLET PO (08:31)
[2024-05-08] MEDS: guaiFENesin 10 ML UDC (200MG/10ML) 20 ML PO (08:34)
--- NOTE | 2024-05-08 09:45 | CASEMGMT ---
Social Work- SW spoke with pt who states that he feels that he can go home. Pt no longer wants to wait for insurance approval and states that he feels he is able to go home without rehab. Pt states that he showered yesterday using a bench, which he also uses at home. Pt reports that his apartment is very small and easy to clean. Pt reports that he is used to simple meals like a grilled cheese and feels that he is able to make meals at home without issue. Pt reports that he is cognizant of pain levels and feels with rest and meds that he will be okay. Pt declines home health or outpatient PT/OT. Pt reports that he has a follow up appointment with PCP and will reach out if he feels he needs any additional supports if he gets home and is unable to function at the high level he believes he will be able to. Pt denies any needs , resources, or supports at this time. RNCM and physician advised. Plan: Home, no services KAYLEIGH Bryan
--- NOTE | 2024-05-08 10:15 | PHA.DC.MR.R ---
Pharmacy ID Med Reconciliation Pharmacy Service has performed discharge medication reconciliation for this patient. The patient's discharge medication list was reviewed for discrepancies and discrepancies were resolved. Medications at Discharge Home Medications ibuprofen 200 mg tablet 200 mg PO Q6H PRN right groin abscess/pain ##0 11/10/20 escitalopram oxalate 20 mg tablet 20 mg PO DAILY 05/03/24 glipizide 5 mg tablet, extended release 24 hr 5 mg PO DAILY diabetes mellitus 05/03/24 tizanidine 4 mg tablet 4 mg PO Q8H PRN PRN muscle spasticity 05/03/24 acetaminophen 500 mg tablet 1,000 mg (2 x 500 mg) PO Q8 #0 tabs 05/08/24 lidocaine 5 % topical patch (Lidoderm) 2 patch topical DAILY #30 ea 05/08/24 oxycodone-acetaminophen 5 mg-325 mg tablet 1 tab PO Q4H PRN pain 5 days #20 tabs 05/08/24 sennosides 8.6 mg-docusate sodium 50 mg tablet (Stimulant Laxative Plus) 2 tab PO BID PRN PRN Constipation #30 tabs 05/08/24
--- NOTE | 2024-05-08 10:57 | CASEMGMT ---
Discharge Planning Patient has chosen to return home. [facility] updated. Angelia Carmona DC Planning Asst.
--- NOTE | 2024-05-08 10:57 | NURSING ---
When going over discharge instructions with pt, it was brought to pt's attention that oxycodone was not ordered for him. Pt told this RN that the hospitalist had said he would order oxycodone prescription at [facility]. This RN messaged Dr Brennan about prescription and Dr Brennan said oxycodone was sent. This RN called retail pharmacy and they said they only had prescriptions for lidocaine patches and stool softener. This RN messaged Dr Brennan again and told him that pharmacy did not receive prescription for oxycodone. Dr Brennan said he would look over discharge medications. This RN made pt aware that the Dr was looking over home medication list and that it would be advised to stay in pt room until medication list was resolved, to be sure that prescription was sent. Pt insisted on sitting in lobby by elevators on [address]. After about 15 minutes, pt and visitor left the floor without notice. Pt was aware that medication list was being looked over before [facility] and made the decision to leave prior to resolution.
== END 2024-05-08 10:30 | disposition home or self-care (01) | DRG 183 ==
LOC: ED 11:34 → MS3 11:44
PROVIDERS: Admitting Provider Internal Medicine; Emergency Provider Emergency Medicine; PCP Internal Medicine; Visit Provider Internal Medicine
DX: S22.41XA Multiple fractures of ribs, right side, initial encounter for closed fracture (principal); S27.1XXA Traumatic hemothorax, initial encounter; J44.1 Chronic obstructive pulmonary disease with (acute) exacerbation; E11.9 Type 2 diabetes mellitus without complications; I10 Essential (primary) hypertension; F32.A Depression, unspecified; F17.210 Nicotine dependence, cigarettes, uncomplicated; E78.1 Pure hyperglyceridemia; F41.9 Anxiety disorder, unspecified; W01.198A Fall on same level from slipping, tripping and stumbling with subsequent striking against other object, initial encounter; H54.8 Legal blindness, as defined in USA; Z79.84 Long term (current) use of oral hypoglycemic drugs; Z79.899 Other long term (current) drug therapy
CPT/HCPCS: 36415; 70450; 71260; 72125; 74177; 80048; 80076; 81001; 82962; 83735; 84100; 84484; 85025; 85610; 85730; 93005; 94640; 94668; 97162; 97166; 97530; 97535; 99281; 99285; 99406; J7030; Q9967; A4216; J2405